=== PATIENT | male | born 1955 | race Caucasian/White ===

== ENCOUNTER 2016-12-20 04:18 | Inpatient (IN) | payer BC, OTHER ==
[~2016-12-20] VITALS: Ht 167.6 cm; Wt 88.0 kg
[2016-12-20 04:30] VITALS: Ht 167.6 cm; Wt 88.0 kg
[2016-12-20] MEDS ORDERED: morphine 4 MG/ML VIAL IV ONE (04:33)
[2016-12-20] MEDS ORDERED: ONDANSETRON 4 MG INJ IV ONE (04:33)
[2016-12-20 04:52] LABS: BASOPHILS % 0.8 % (0.0-2.0); EOSINOPHILS # 0.2 10^3/ul (0.0-0.5); HEMATOCRIT 39.3 % (42.0-52.0); HEMOGLOBIN 13.9 g/dl (14.0-18.0); LYMPHOCYTES % 19.2 % (15.0-51.0); MEAN CORPUSCULAR HEMOGLOBIN 31.7 pg (29.0-33.0); MEAN CORPUSCULAR HGB CONC 35.4 g/dl (32.0-37.0); MEAN CORPUSCULAR VOLUME 89.7 fl (82.0-101.0); MEAN PLATELET VOLUME 10.5 fl (7.4-10.4); MONOCYTE # 0.3 10^3/ul (0.3-0.9); MONOCYTES % 6.6 % (0.0-11.0); NEUTROPHIL # 3.5 10^3/ul (1.6-7.5); PLATELET COUNT 161 10^3/UL (140-415); RED BLOOD COUNT 4.38 10^6/ul (4.70-6.10); RED CELL DISTRIBUTION WIDTH 13.2 % (11.5-14.5)
[2016-12-20 05:16] LABS: CALCIUM 9.6 mg/dl (8.4-10.2); CREATININE 1.21 mg/dl (0.61-1.24); POTASSIUM 3.6 mmol/L (3.5-5.1)
[2016-12-20 05:29] LABS: CK-MB 2.99 ng/ml (0.0-2.4); TROPONIN-I 0.114 ng/ml (0.00-0.12)
[2016-12-20] MEDS ORDERED: METF500T4 PO (05:43)
[2016-12-20] MEDS ORDERED: ATOR20TA38 PO (05:43)
[2016-12-20] MEDS ORDERED: BENA40TA41 PO (05:43)
[2016-12-20] MEDS ORDERED: IBUP-1542 PO (05:43)
[2016-12-20] MEDS ORDERED: HYDR12.58 PO (05:43)
[2016-12-20] MEDS ORDERED: RIVA20TA PO (05:43)
[2016-12-20] MEDS ORDERED: METO-336 PO (05:43)
[2016-12-20] MEDS ORDERED: PARO-37 PO (05:43)
[2016-12-20] MEDS ORDERED: ASPI-535 PO (05:47)
[2016-12-20] MEDS ORDERED: LANT3I SC (05:47)
--- NOTE | 2016-12-20 05:48 | ERA ---
ER Documentation Chief Complaint Date/Time DATE: 12/20/16 TIME: 05:45 Chief Complaint unprovoked CP radiating down left arm since 0230 HPI This is 60-year-old male comes in with unprovoked chest pain rating down his left arm since 230 this morning. Pain is mild to moderate intensity, pressure- like with no exacerbating relieving factors. No nausea no vomiting no fevers no chills. No other current complaints. It is pressure-like, associated with no exacerbating or remitting factors. Mild associated shortness of breath no nausea no vomiting no other current issues ROS All systems reviewed and are negative except as per history of present illness. Medications Home Meds Reported Medications Ibuprofen* (Ibuprofen*) 600 Mg Tablet, 600 MG PO Q8, TAB 12/20/16 Hydrochlorothiazide* (Hydrochlorothiazide*) 12.5 Mg Tablet, 12.5 MG PO DAILY, # 30 TAB 12/20/16 Paroxetine Hcl* (Paroxetine*) 20 Mg Tablet, 20 MG PO DAILY, TAB 12/20/16 Rivaroxaban* (Xarelto*) 20 Mg Tablet, 20 MG PO WITH DINNER, TAB 12/20/16 Metoprolol Succinate* (Toprol XL*) 100 Mg Tab.sr.24h, 100 MG PO DAILY, #30 TAB 12/20/16 Atorvastatin Calcium* (Atorvastatin Calcium*) 20 Mg Tablet, 20 MG PO QHS, #30 TAB 12/20/16 Benazepril Hcl* (Benazepril Hcl*) 40 Mg Tablet, 40 MG PO DAILY, #30 TAB 12/20/16 Metformin Hcl* (Metformin Hcl*) 500 Mg Tablet, 500 MG PO WITH BREAKFAST DINNE, # 30 TAB 12/20/16 Allergies Allergies: Coded Allergies: No Known Allergy (Unverified , 12/20/16) PMhx/Soc Medical and Surgical Hx: pt denies Surgical Hx Hx Cardiac Disorders: Yes (HTN) Hx Miscellaneous Medical Probl: Yes (DIABETES) Hx Alcohol Use: Yes (OCCASSIONALY) Hx Substance Use: No Hx Tobacco Use: No Smoking Status: Never smoker Physical Exam Vitals Vital Signs Date Time Temp Pulse Resp B/P Pulse Ox O2 Delivery O2 Flow Rate FiO2 12/20/16 04:45 2 12/20/16 04:45 100 15 110/94 98 Room Air 12/20/16 04:30 98.3 110 16 110/94 99 Physical Exam Const: [] Head: Atraumatic Eyes: Normal Conjunctiva ENT: Normal External Ears, Nose and Mouth. Neck: Full range of motion..~ No meningismus. Resp: Clear to auscultation bilaterally Cardio: Regular rate and rhythm, no murmurs Abd: Soft, non tender, non distended. Normal bowel sounds Skin: No petechiae or rashes Back: No midline or flank tenderness Ext: No cyanosis, or edema Neur: Awake and alert Psych: Normal Mood and Affect Result Diagram: 12/20/1643412/20/16434 Results 24 hrs Laboratory Tests Test 12/20/16 04:35 White Blood Count 5.010^3/ul Red Blood Count 4.3810^6/ul Hemoglobin 13.9g/dl Hematocrit 39.3% Mean Corpuscular Volume 89.7fl Mean Corpuscular Hemoglobin 31.7pg Mean Corpuscular Hemoglobin Concent 35.4g/dl Red Cell Distribution Width 13.2% Platelet Count 26041^3/UL Mean Platelet Volume 10.5fl Neutrophils % 69.0% Lymphocytes % 19.2% Monocytes % 6.6% Eosinophils % 4.0% Basophils % 0.8% Nucleated Red Blood Cells % 0.0/100WBC Neutrophils # 3.510^3/ul Lymphocytes # 1.010^3/ul Monocytes # 0.310^3/ul Eosinophils # 0.210^3/ul Basophils # 0.010^3/ul Nucleated Red Blood Cells # 0.010^3/ul Sodium Level 136mmol/L Potassium Level 3.6mmol/L Chloride Level 100mmol/L Carbon Dioxide Level 23mmol/L Anion Gap 17 Blood Urea Nitrogen 21mg/dl Creatinine 1.21mg/dl Glucose Level 237mg/dl Calcium Level 9.6mg/dl Creatine Kinase 119IU/L Creatine Kinase Index 2.5 Creatinine Kinase MB (Mass) 2.99ng/ml Troponin I 0.114ng/ml Current Medications Medications (Trade) Dose Ordered Sig/Marques Route PRN Reason Start Time Stop Time Status Last Admin Dose Admin Morphine Sulfate (morphine) 4 mg ONCE ONCE IV 12/20/16 04:33 12/20/16 04:34 DC Ondansetron HCl (Zofran Inj) 4 mg ONCE ONCE IV 12/20/16 04:33 12/20/16 04:34 DC Procedures/MDM EKG: Rate/Rhythm: [Normal Sinus Rhythm] QRS, ST, T-waves: [No changes consistent w/ acute ischemia] Impression: [No evidence of ischemia or arrhythmia] Chest X-ray 1V Interpreted by me: Soft Tissue: No acute abnormalities Bones: No acute abnormalities Mediastinum/Cardiac Silhouette/Lungs: [No acute abnormalities] Patient's symptoms are concerning for cardiac cause will require inpatient workup and continuous monitoring. Further w/u for ischemia, arrhythmia, PE or dissection will be deferred to the inpatient team. Accepting Care Team: Current data and ongoing care discussed. Time: 5:40 AM Primary Provider: Per [employer] Consulting: [XOXOXO] Outstanding Data: none Departure Diagnosis: Primary Impression: Chest pain Qualified Code: R07.9 - Chest pain, unspecified type Condition: Stable JUNAID SEGURA Dec 20, 2016 05:48
--- NOTE | 2016-12-20 06:27 | RADRPT ---
PROCEDURE: XR Chest. CLINICAL INDICATION: Chest pain TECHNIQUE: A single AP view of the chest was obtained. COMPARISON: None. FINDINGS: No focal airspace opacification, pleural effusion or pneumothorax is seen. The cardiomediastinal si lhouette is within normal limits for size. There is a 3.8 x 2.1 cm rounded opacity which projects ov er the cardiac apex. The osseous structures are unremarkable. IMPRESSION: 1. No radiographic evidence of acute cardiopulmonary disease. 2. 3.8 x 2.1 cm well circumscribed nodular opacity projects over the cardiac apex. CT is recommende d for further evaluation. RPTAT: HH .Imelda Garcia MD, MD Date Time Electronically viewed and signed by .Imelda Garcia MD, on 12/20/2016 06:26 .G/
[2016-12-20] MEDS ORDERED: ACETAMINOPHEN 325 MG TAB PO PRN (07:00)
[2016-12-20] MEDS ORDERED: ONDANSETRON 4 MG INJ IV PRN (07:00)
--- NOTE | 2016-12-20 07:54 | RADRPT ---
PROCEDURE: CT Chest without contrast. CLINICAL INDICATION: Left lung mass TECHNIQUE: Spiral CT images through the chest without contrast. Coronal and sagittal reformatted images were obtained from the axial source images. The total exam CTDI equals 15.15 mGy and the tota l exam DLP equals 570.53 mGy-cm. One or more of the following dose reduction techniques were used: a utomated exposure control, adjustment of the mA and/or kV according to patient size, or use of itera tive reconstruction technique. COMPARISON: Chest x-ray from 12/20 FINDINGS: There is a left Bochdalek hernia containing fat which accounts for the mass-like density seen on ros st x-ray. Minimal dependent atelectasis of the lungs is otherwise seen. No pulmonary nodules are see n. No focal infiltrate or pleural effusion. There is mild atherosclerotic calcification of the aorta with moderate coronary artery calcification seen. Trace pericardial fluid. No hilar or mediastinal adenopathy. Images of the upper abdomen show mild hepatic steatosis. The kidneys are partially seen and there is a 5 mm nonobstructing stone in the upper pole of the right kidney. Degenerative change of the spine is seen. .. IMPRESSION: Left Bochdalek hernia, incidental. Aortic and coronary artery atherosclerotic change. Otherwise unre markable study. RPTAT: [facility] Physician Venkat Date Time Electronically viewed and signed by Physician Venkat on 12/20/2016 07:54 LE/
[2016-12-20 10:12] LABS: CK-MB 5.62 ng/ml (0.0-2.4)
[2016-12-20 10:18] LABS: TROPONIN-I 1.81 ng/ml (0.00-0.12)
[2016-12-20] MEDS ORDERED: ASPIRIN (EC) 325 MG TAB PO ONE (10:30)
[2016-12-20] MEDS ORDERED: NITROGLYCERIN (SL) 0.4 MG TAB SL PRN (10:30)
[2016-12-20] MEDS ORDERED: morphine 2 MG INJ IV PRN (10:30)
[2016-12-20] MEDS ORDERED: NACL 0.9% 3 ML SYG IV SCH (10:30)
[2016-12-20] MEDS ORDERED: ALBUTEROL/IPRATROPIUM (NEB) 3 ML AMP HHN PRN (10:30)
[2016-12-20] MEDS ORDERED: LORAZEPAM 2 MG INJ IV PRN (10:30)
--- NOTE | 2016-12-20 10:43 | HP ---
Date/Time of Note Date/Time of Note DATE: 12/20/16 TIME: 10:35 Assessment/Plan VTE Prophylaxis VTE Prophylaxis Intervention: LMWH Lines/Catheters IV [facility]ter [facility] (from [facility]): Peripheral IV Assessment/Plan Assessment/Plan 1. NSTEMI -Admit to telemetry -Trend troponin -Start therapeutic dose of Lovenox versus heparin drip -Supplemental oxygen, aspirin, beta-norris, statin, as needed nitro morphine -2D echo and cardiology consult 2. History of multivessel coronary artery disease -As mentioned in the HPI, patient was told that he needs CABG in 2014 but has been scared to do surgery -See #1 3. Insulin-dependent diabetes -Check A1c -Insulin while in house 4. History of dyslipidemia -Check fasting lipid -Continue statin HPI/ROS Admit Date/Time Admit Date/Time Hx of Present Illness This is a 60-year-old male with a history of hypertension, insulin-dependent diabetes, dyslipidemia who presented to ER complaining of chest pain. Pain started yesterday. It substernal, pressure-like with radiation to his left arm. He also complains of epigastric abdominal pain. Denied symptoms of acid reflux. Denied shortness of breath, nausea, vomiting or diaphoresis. He said he was hospitalized at the [facility] in 2014 and at that time cardiac cath revealed multivessel coronary artery disease. He said he was told that he needs CABG but refused because "I am scared ". When he presented to the ER, he was tachycardic with a heart rate of 110 otherwise his vitals were stable. His first troponin was negative but the second troponin just came back elevated at 1.8. Initial EKG was no ST-T wave abnormalities. PMH/Family/Social Past Medical History Medical History: coronary artery disease, diabetes, high cholesterol, hypertension Social History Alcohol Use: occasionally Smoking Status: Current every day smoker Drug Use: none Exam/Review of Systems Vital Signs Vitals Vital Signs Date Time Temp Pulse Resp B/P Pulse Ox O2 Delivery O2 Flow Rate FiO2 12/20/16 08:30 70 16 113/66 98 Room Air 12/20/16 06:30 97.9 12/20/16 04:45 2 Exam Constitutional: alert, oriented, well developed Head: atraumatic, normocephalic Eyes: EOMI, PERRL Respiratory: clear to auscultation, normal air movement Cardiovascular: nl pulses, other (Tachycardic with regular rhythm) Gastrointestinal: non-tender, soft Extremities: normal pulses Labs Result Diagram: 12/20/16 0435 12/20/16 0435 JUNAID WYMAN MD Dec 20, 2016 10:43
[2016-12-20] MEDS: ENOXAPARIN 100 MG/ML SYG SC SCH ×2 (10:53→21:00)
[2016-12-20] MEDS: FAMOTIDINE 20 MG INJ IV SCH ×2 (10:53→20:50)
[2016-12-20] MEDS: PAROXETINE 20 MG TAB PO SCH (11:06)
[2016-12-20] MEDS: METOPROLOL (XL) 100 MG TAB PO SCH (11:06)
[2016-12-20] MEDS: DEXTROSE 5%-0.45% NACL 1,000 ML IV SCH ×2 (11:07→23:50)
[2016-12-20] MEDS: IBUPROFEN 600 MG TAB PO SCH ×2 (13:50→22:00)
--- NOTE | 2016-12-20 16:29 | CONS ---
DATE OF ADMISSION: 12/20/2016 DATE OF CONSULTATION: 12/20/2016 REASON FOR CONSULTATION: Chest pain and positive troponin. REQUESTING PHYSICIAN: Dr. Jiménez from the hospitalist service. HISTORY OF PRESENT ILLNESS: Mr. Rosa is a 60-year-old male with a history of coronary artery dis ease, severe, multivessel by a catheterization report from 2013 with recommendations at that time to undergo coronary bypass graft surgery, which patient states he refused, unstable angina, hypertensi on, dyslipidemia, ongoing tobacco usage, atrial flutter per history. He who presented with complain ts of substernal chest pain described as a chest pressure. The onset with minimal exertion walking across the room. The patient has associated shortness of breath. Upon arrival in the emergency dep artment, temperature 98.3, blood pressure 110/94, pulse 110, respirations 16, saturating 99%. [facility] labs revealed white blood count of 5, hemoglobin 13.9, platelets 161. Sodium 136, potassiu m 3.6, creatinine 1.21, BUN 21. Troponin initially positive at 0.114, then positive at 1.81. [facility]'s electrocardiogram revealed sinus tachycardia, rate 112 with right superior axis deviation, incomplete right bundle branch block, borderline inferior Q's and poor R-wave progression across the anterior precordial leads. The patient subsequently has been treated with aspirin, morphine, Zofra n and had been on Xarelto, which has been discontinued. PAST MEDICAL HISTORY: As above in HPI. MEDICATIONS PRIOR TO ADMIT: 1. Xarelto 20 mg daily. 2. Atorvastatin 20 chest pain. 3. Benazepril 40 mg daily. 3. Toprol-XL 100 mg daily. 4. Aspirin 81 mg daily. 5. Paxil 20 mg daily. 6. Hydrochlorothiazide 12.5 mg daily. 7. Lantus. 8. Metformin 500 mg daily. ALLERGIES: NO KNOWN DRUG ALLERGIES. SOCIAL HISTORY: Positive tobacco, social, ETOH. No illicit drug use. FAMILY HISTORY: No history of sudden cardiac or early CAD. REVIEW OF SYSTEMS: As above in HPI. CONSTITUTIONAL: No fevers, chills. PULMONARY: Shortness of breath. CARDIOVASCULAR: Chest pain, positive troponin, non-ST elevation myocardial infarction. GASTROINTESTINAL: No vomiting. GENITOURINARY: No hematuria. MUSCULOSKELETAL: Degenerative joint disease. PSYCHIATRIC: The patient denies depression. NEUROLOGIC: No documented history of CVA. ENDOCRINE: Diabetes mellitus. PHYSICAL EXAMINATION: VITAL SIGNS: Temperature of 97.9, blood pressure most recently 124/81, pulse 68, respirations 16, s aturating 99% on room air. GENERAL: The patient is alert, awake, complaining of substernal chest pain. NECK: JVP approximately 8 to 9 cm of water. CHEST: Fair air movement throughout. HEART: Regular rate and rhythm. Normal S1, S2, I/ systolic murmur, nondisplaced PMI. ABDOMEN: Positive bowel sounds, soft. EXTREMITIES: No edema, 1+ pulses bilaterally posterior tibial. LABORATORIES: As above in HPI. No further labs for my review at this time. IMAGING STUDIES: As above in HPI. Chest x-ray revealing a 3.8 x 2.1 cm well localized ____ over th e cardiac apex. Chest CT revealed left , aortic and coronary calcifications and trace pericar dial fluid. ECG: As above in HPI. No further electrocardiograms for my review at this time. IMPRESSION: 1. Positive troponin/non-ST elevation myocardial infarction in the setting of known obstructive cor onary artery disease per catheterization in 2013 with a catheterization report that has been obtaine d from [facility] done actually 05/13/2014 which reads the patient to have a diffuse stenosi s done at [facility] up 70% to 80%. Also diagnosed a diagonal stenosis x2, 70% to 80%. Obtuse margin al lesions of 70% and 90%. Right coronary artery lesions up to 70% and posterolateral branch up to 99%. 2. Chest pain secondary to #1. 3. Abnormal electrocardiogram with inferior Q-waves. 4. Hypertension. 5. Dyslipidemia. 6. Ongoing tobacco usage. 7. Diabetes mellitus. 8. History of atrial flutter on systemic anticoagulation, currently held. RECOMMENDATIONS: 1. At this time, would admit patient to telemetry monitoring and continue to trend the patient's ca rdiac enzymes, assess for any significant ongoing cardiac damage. 2. Continue the patient's Lovenox systemic anticoagulation at this time. 3. Continue the patient's current antihypertensives with benazepril, hydrochlorothiazide and Toprol . 4. Initiate the patient on oral nitrates and follow for recurrent symptomatology. Give patient p.r .n. sublingual nitroglycerin for recurrent chest pain. 5. Check a 2D echo to further assess patient's ejection fraction, wall motion and any major valve a bnormalities. 6. Check a fasting lipid panel for general risk stratification and adjust the patient's statin ther apy as necessary. 7. Continue to check serial EKGs to assess for any significant ongoing changes. EKG in the morning , EKG for any complaints of chest pain or change in rhythm. 8. Will check a 2D echocardiogram to further assess the patient's ejection fraction, wall motion, r ule any major abnormalities. 9. Will likely require repeat catheterization to reestablish the patient's coronary anatomy and the reafter will require referral for most probable coronary artery bypass graft surgery as the patient is agreeable. Thank you for allowing me to take part in the care of this patient. I will continue to follow along very closely with you. Further recommendations will be made as the patient progresses through his inpatient hospital clinical course. Dictated By: JOSE C LANDIN/AUGIE Conf#: [id number] DID#: [id number] CC: JOSE C JIMÉNEZ;*EndCC*
[2016-12-20 17:04] LABS: CK-MB 6.34 ng/ml (0.0-2.4)
[2016-12-20 17:06] LABS: TROPONIN-I 1.71 ng/ml (0.00-0.12)
[2016-12-20 17:51] VITALS: BP 119/58; PULSE 59; RESP 18
[2016-12-20] MEDS ORDERED: RIVAROXABAN 20 MG TABLET PO SCH (18:00)
--- NOTE | 2016-12-20 19:58 | RADRPT ---
Echocardiogram Report Patient Name: PERRY ZAVALETA Gender: Male Date: 1955 Study Date: 20-Dec-2016 Lease Administrator: BROOKE [facility] Location: [facility] Ref. Physician: JUNAID WYMAN Quality: Adequate Procedures: Transthoracic echocardiogram with complete 2D, M-Mode, and doppler examination. Indications: NSTEMI. 2D/M Mode Doppler Measurement Value Normal Ranges Measurement Value Normal Ranges LVIDd 2D 4.7 3.5 - 5.6 cm JUNIOR Vmax 2.7 cm2 LVIDs 2D 3.2 2.1 - 4.1 cm JUNIOR VTI 2.7 cm2 LVPWd 2D 1.5 0.6 - 1.1 cm AV Peak Luis Alfredo 1.3 m/sec IVSd 2D 1.5 0.6 - 1.1 cm AV Peak PG 7.1 mmHg AoR Diam 2D 3.0 2.0 - 3.7 cm LVOT Peak Luis Alfredo 1.1 m/sec EDV 2D 100.1 cm3 LVOT Peak PG 4.6 mmHg ESV 2D 31.3 cm3 MV E Peak Luis Alfredo 1.0 m/sec LVOT Diam 2.1 cm MV A Peak Luis Alfredo 0.7 m/sec MV E/A 1.4 MV Decel Time 150 msec MV Decel [place] 7 MV E/A 1.4 Findings Left Ventricle: Lower limits of normal systolic function. Normal left ventricular cavity size. Normal left ventricular wall thickness. Ejection fraction is visually estimated at 50 %. Tissue Doppler/Mitral Doppler indices are within normal limits. Right Ventricle: Normal right ventricular size. Normal right ventricular systolic function. Left Atrium: There is mild enlargement of left atrium. Right Atrium: The right atrium is normal in size. Mitral Valve: Mild mitral leaflet calcification. Mild mitral annular calcification. Trace mitral regurgitation. Aortic Valve: No significant aortic stenosis or insufficiency. Aortic cusps appear mildly calcified. Tricuspid Valve: Normal appearance of the tricuspid valve. Unable to obtain RVSP due to minimal presence of tricuspid regurgitation. There is trace tricuspid regurgitation. Pulmonic Valve: Pulmonic valve not well visualized. There is trace pulmonic regurgitation. Pericardium: Normal pericardium with no significant pericardial effusion. Aorta: Normal aortic root. IVC: Normal size and normal respiratory collapse consistent with normal right atrial pressure. Conclusions 1.Lower limits of normal systolic function. Normal left ventricular cavity size. Normal left ventricular wall thickness. Ejection fraction is visually estimated at 50 %. Tissue Doppler/Mitral Doppler indices are within normal limits. 2.There is mild enlargement of left atrium. 3.Mild mitral leaflet calcification. Mild mitral annular calcification. Trace mitral regurgitation. 4.Normal appearance of the tricuspid valve. Unable to obtain RVSP due to minimal presence of tricuspid regurgitation. There is trace tricuspid regurgitation. 5.Pulmonic valve not well visualized. There is trace pulmonic regurgitation. Electronically Signed By: Damion Marquez 20-Dec-2016 19:57:11 -0700 Patient Name: PERRY ZAVALETA Study Date: 20-Dec-[id number]
[2016-12-20 20:14] VITALS: PULSE 59
[2016-12-20 20:29] VITALS: BP 116/71; PULSE 68; RESP 18
[2016-12-20] MEDS: ISOSORBIDE DINITRATE 20 MG TAB PO SCH (20:54)
[2016-12-20] MEDS ORDERED: ATORVASTATIN 20 MG TAB PO SCH (21:00)
[2016-12-20] MEDS: INSULIN GLARGINE [LANtus] 3 ML PEN SC SCH (21:02)
[2016-12-21] VITALS (15 sets, daily range): BP systolic 88–107; BP diastolic 52–64; PULSE 52–66; RESP 18–61
[2016-12-21] MEDS: IBUPROFEN 600 MG TAB PO SCH ×3 (06:00→21:52)
[2016-12-21 07:23] LABS: BASOPHIL # 0.1 10^3/ul (0.0-0.1); BASOPHILS % 1.1 % (0.0-2.0); EOSINOPHILS # 0.2 10^3/ul (0.0-0.5); EOSINOPHILS % 3.8 % (0.0-7.0); HEMATOCRIT 36.1 % (42.0-52.0); HEMOGLOBIN 12.4 g/dl (14.0-18.0); LYMPHOCYTES # 1.5 10^3/ul (0.8-2.9); LYMPHOCYTES % 27.3 % (15.0-51.0); MEAN CORPUSCULAR HEMOGLOBIN 31.1 pg (29.0-33.0); MEAN CORPUSCULAR HGB CONC 34.3 g/dl (32.0-37.0); MEAN CORPUSCULAR VOLUME 90.5 fl (82.0-101.0); MEAN PLATELET VOLUME 11.1 fl (7.4-10.4); MONOCYTE # 0.6 10^3/ul (0.3-0.9); MONOCYTES % 10.6 % (0.0-11.0); NEUTROPHIL # 3.1 10^3/ul (1.6-7.5); NEUTROPHILS % 56.7 % (39.0-77.0); PLATELET COUNT 154 10^3/UL (140-415); RED BLOOD COUNT 3.99 10^6/ul (4.70-6.10); RED CELL DISTRIBUTION WIDTH 13.7 % (11.5-14.5); WHITE BLOOD COUNT 5.5 10^3/ul (4.8-10.8)
[2016-12-21 07:51] LABS: ALBUMIN 3.9 g/dl (3.3-4.9); ALBUMIN/GLOBULIN RATIO 1.5; BILIRUBIN,INDIRECT 0.5 mg/dl (0-1.1); BILIRUBIN,TOTAL 0.5 mg/dl (0.2-1.3); CHOL/HDL RATIO 3.6 RATIO; CREATININE 1.01 mg/dl (0.61-1.24); MAGNESIUM 1.3 mg/dl (1.7-2.5); POTASSIUM 3.6 mmol/L (3.5-5.1); TOTAL PROTEIN 6.5 g/dl (6.1-8.1)
[2016-12-21 08:33] LABS: THYROID STIMULATING HORMONE 1.89 MIU/L (0.465-4.680)
[2016-12-21] MEDS ORDERED: HYDROCHLOROTHIAZIDE 12.5 MG CAP PO SCH (09:00)
[2016-12-21] MEDS ORDERED: BENAZEPRIL 40 MG TAB PO SCH (09:00)
[2016-12-21] MEDS: FAMOTIDINE 20 MG INJ IV SCH ×2 (09:26→21:51)
[2016-12-21] MEDS: ISOSORBIDE DINITRATE 20 MG TAB PO SCH ×3 (09:26→21:00)
[2016-12-21] MEDS ORDERED: INFLUENZA VIRUS VACCINE 0.5 ML SYG IM* ONE (10:00)
[2016-12-21] MEDS: METOPROLOL (XL) 100 MG TAB PO SCH (10:35)
[2016-12-21] MEDS: ASPIRIN 81 MG TAB PO SCH (10:35)
[2016-12-21] MEDS: PAROXETINE 20 MG TAB PO SCH (10:35)
[2016-12-21] MEDS: ENOXAPARIN 100 MG/ML SYG SC SCH ×2 (10:40→22:02)
[2016-12-21] MEDS ORDERED: MAGNESIUM SULFATE 2 GM/50 ML 50 ML IVPB ONE (12:30)
[2016-12-21] MEDS: DEXTROSE 5%-0.45% NACL 1,000 ML IV SCH (13:10)
--- NOTE | 2016-12-21 13:41 | PN ---
Date/Time of Note Date/Time of Note DATE: 12/21/16 TIME: 13:40 Assessment/Plan VTE Prophylaxis VTE Prophylaxis Intervention: heparin Lines/Catheters [facility] [place] Urinary Cath still in place: No Assessment/Plan Chief Complaint/Hosp Course Patient is a 60-year-old male with a past medical history of hypertension, diabetes, coronary artery disease who presented to the ED for chest pain, found to have elevated troponins Assessment and plan Non-ST elevation [place] Elevated troponins History of multivessel coronary artery disease Insulin-dependent diabetes Dyslipidemia Hypertension -cardiology plans cath likely tomorrow, given history of refusal of CABG in 2014 , patient will likely need open heart surgery, Patient's family requests Dr. Jenna Ladd. -Continue meds as per cards -Insulin while in-house -Pain control as necessary -Monitor closely DISPO: pending cath results Problems: Subjective 24 Hr Interval Summary Free Text/Dictation no chest pain, no sob Exam/Review of Systems Vital Signs Vitals Vital Signs Date Time Temp Pulse Resp B/P Pulse Ox O2 Delivery O2 Flow Rate FiO2 12/21/16 12:00 59 12/21/16 09:27 98.7 18 107/57 100 Room Air 12/20/16 04:45 2 Exam Physical exam General: Patient is laying in bed and answers questions appropriately Mentation: Patient is alert and oriented 4, Head: Normocephalic atraumatic Eyes: EOMI, pupils reactive to light Neck: Supple, nontender, midline Respiratory: Clear to auscultation bilaterally Cardiovascular: regular rate, no obvious murmurs Gastrointestinal: non-tender to palpation, bowel sounds heard. Neurological: Moves all extremities spontaneously Skin: No new skin lesions Results Result Diagram: 12/21/16 0640 12/21/16 0640 Results 24 hrs Laboratory Tests Test 12/20/16 16:10 12/20/16 20:48 12/21/16 06:40 Creatine Kinase 109 Creatine Kinase Index 5.8 Creatinine Kinase MB (Mass) 6.34 H Troponin I 1.710 *H Bedside Glucose 215 White Blood Count 5.5 Red Blood Count 3.99 L Hemoglobin 12.4 L Hematocrit 36.1 L Mean Corpuscular Volume 90.5 Mean Corpuscular Hemoglobin 31.1 Mean Corpuscular Hemoglobin Concent 34.3 Red Cell Distribution Width 13.7 Platelet Count 154 Mean Platelet Volume 11.1 H Neutrophils % 56.7 Lymphocytes % 27.3 Monocytes % 10.6 Eosinophils % 3.8 Basophils % 1.1 Nucleated Red Blood Cells % 0.0 Neutrophils # 3.1 Lymphocytes # 1.5 Monocytes # 0.6 Eosinophils # 0.2 Basophils # 0.1 Nucleated Red Blood Cells # 0.0 Sodium Level 138 Potassium Level 3.6 Chloride Level 101 Carbon Dioxide Level 30 Anion Gap 11 Blood Urea Nitrogen 18 Creatinine 1.01 Glucose Level 98 # Hemoglobin A1c 6.5 H Calcium Level 9.0 Magnesium Level 1.3 L Total Bilirubin 0.5 Direct Bilirubin 0.00 Indirect Bilirubin 0.5 Aspartate Amino Transf (AST/SGOT) 32 Alanine Aminotransferase (ALT/SGPT) 30 Alkaline Phosphatase 48 Total Protein 6.5 Albumin 3.9 Globulin 2.60 Albumin/Globulin Ratio 1.50 Triglycerides Level 157 H Cholesterol Level 184 LDL Cholesterol, Calculated 103 HDL Cholesterol 50 Cholesterol/HDL Ratio 3.6 Thyroid Stimulating Hormone (TSH) 1.890 Medications Medications Current Medications Dextrose/Sodium Chloride (D5-1/2ns) 1,000 ml @ 75 mls/hr [id number] IV Last administered on 12/20/16 23:50; Admin Dose 75 MLS/HR; Start 12/20/16 at 10:30 Lorazepam (Ativan) 0.5 mg Q6H PRN IV ANXIETY; Start 12/20/16 at 10:30 Aspirin (Aspirin) 81 mg DAILY PO Last administered on 12/21/16 10:35; Admin Dose 81 MG; Start 12/21/16 at 09:00 Nitroglycerin (Nitroglycerin (Sl Tab) 0.4 Mg) 1 tab Q5M PRN SL CHEST PAIN; Start 12/20/16 at 10:30 Morphine Sulfate (morphine) 2 mg Q4H PRN IV PAIN LEVEL 7-10; Start 12/20/16 at 10:30 Famotidine (Pepcid Iv) 20 mg Q12 IV Last administered on 12/21/16 09:26; Admin Dose 20 MG; Start 12/20/16 at 10:30 Benazepril HCl (Lotensin) 40 mg DAILY PO Last administered on 12/21/16 10:35 ; Admin Dose 40 MG; Start 12/21/16 at 09:00 Hydrochlorothiazide (Hydrochlorothiazide) 12.5 mg DAILY PO Last administered on 12/21/16 10:35; Admin Dose 12.5 MG; Start 12/21/16 at 09:00 Ibuprofen (Motrin) 600 mg Q8 PO ; Start 12/20/16 at 14:00 Insulin Glargine (Lantus) 20 unit QHS SC Last administered on 12/20/16 21:02 ; Admin Dose 20 UNIT; Start 12/20/16 at 21:00 Metoprolol Succinate (Toprol Xl) 100 mg DAILY PO Last administered on 10:35; Admin Dose 100 MG; Start 12/20/16 at 10:30 Paroxetine HCl (Paxil) 20 mg DAILY PO Last administered on 12/21/16 10:35; Admin Dose 20 MG; Start 12/20/16 at 10:30 Enoxaparin Sodium (Lovenox) 70 mg Q12 SC Last administered on 12/21/16 10:40 ; Admin Dose 70 MG; Start 12/20/16 at 10:30 Isosorbide Dinitrate (Isordil) 20 mg TID PO Last administered on 12/21/16 09: 26; Admin Dose 20 MG; Start 12/20/16 at 21:00 Atorvastatin Calcium 80 mg 80 mg QHS PO ; Start 12/21/16 at 21:00 Magnesium Sulfate (Magnesium Sulfate 2 Gm/50 ml) 50 ml @ 25 mls/hr ONCE ONCE IVPB Last administered on 12/21/16 13:06; Admin Dose 25 MLS/HR; Start at 12:30; Stop 12/21/16 at 14:29 VIKRAM JIMÉNEZ Dec 21, 2016 13:41
--- NOTE | 2016-12-21 20:02 | CONS ---
Date/Time of Note Date/Time of Note DATE: 12/21/16 TIME: 19:53 Assessment/Plan Assessment/Plan Chief Complaint/Hosp Course 1. Positive troponin/non-ST elevation myocardial infarction in the setting of known obstructive coronary artery disease per catheterization in 2013 with a catheterization report that has been obtained from [facility] done actually 05/13/2014 which reads the patient to have a diffuse stenosis done at [place] [facility] up 70% to 80%. Also diagnosed a diagonal stenosis x2, 70% to 80%. Obtuse marginal lesions of 70% and 90%. Right coronary artery lesions up to 70 % and posterolateral branch up to 99%.-downtrending cardiac enzymes 2. Chest pain secondary to #1. 3. Abnormal electrocardiogram with inferior Q-waves. 4. Hypertension-borderline hotn currently 5. Dyslipidemia. 6. Ongoing tobacco usage. 7. Diabetes mellitus. 8. History of atrial flutter -In SR currently Recc: -Tele -serial ecg's -Continue current BB/ACEI with slight decrase to allow patient to better tolerate -Continue isordil -trend carduac ensymes -Continue statin -Hold HCTZ -Continue asa/lovenox -LHC with possible PTCA/stent in am Problems: Consultation Date/Type/Reason Admit Date/Time Dec 20, 2016 at 06:49 Initial Consult Date 12/20/2016 Type of Consultation: cardiology Reason for Consultation chest pain Referring Provider: VIKRAM JIMÉNEZ Exam/Review of Systems Vital Signs Vitals Vital Signs Date Time Temp Pulse Resp B/P Pulse Ox O2 Delivery O2 Flow Rate FiO2 12/21/16 18:45 55 12/21/16 17:46 98.3 19 92/55 95 Room Air 12/20/16 04:45 2 Exam Review of Systems: CONSTITUTIONAL: No fevers, chills. PULMONARY: No sob CARDIOVASCULAR:INtermittent chest pain GASTROINTESTINAL: No nausea/vomiting. GENITOURINARY: No hematuria/dysuria. MUSCULOSKELETAL: No myagias/arthalgias. PSYCHIATRIC: The patient denies depression. NEUROLOGIC: No weakness Constitutional: alert Psych: no complaints Head: normocephalic ENMT: mucosa pink and moist Neck: jvd (9 cm water), supple Respiratory: diminished breath sounds (at bases/B) Cardiovascular: regular rate and rhythm Gastrointestinal: non-tender, soft Musculoskeletal: muscle tone (normal) Extremities: edema (none) Neurological: other Results Result Diagram: 12/21/16 0640 12/21/16 0640 Results 24 hrs Laboratory Tests Test 12/20/16 20:48 12/21/16 06:40 12/21/16 16:47 Bedside Glucose 215 195 White Blood Count 5.5 Red Blood Count 3.99 L Hemoglobin 12.4 L Hematocrit 36.1 L Mean Corpuscular Volume 90.5 Mean Corpuscular Hemoglobin 31.1 Mean Corpuscular Hemoglobin Concent 34.3 Red Cell Distribution Width 13.7 Platelet Count 154 Mean Platelet Volume 11.1 H Neutrophils % 56.7 Lymphocytes % 27.3 Monocytes % 10.6 Eosinophils % 3.8 Basophils % 1.1 Nucleated Red Blood Cells % 0.0 Neutrophils # 3.1 Lymphocytes # 1.5 Monocytes # 0.6 Eosinophils # 0.2 Basophils # 0.1 Nucleated Red Blood Cells # 0.0 Sodium Level 138 Potassium Level 3.6 Chloride Level 101 Carbon Dioxide Level 30 Anion Gap 11 Blood Urea Nitrogen 18 Creatinine 1.01 Glucose Level 98 # Hemoglobin A1c 6.5 H Calcium Level 9.0 Magnesium Level 1.3 L Total Bilirubin 0.5 Direct Bilirubin 0.00 Indirect Bilirubin 0.5 Aspartate Amino Transf (AST/SGOT) 32 Alanine Aminotransferase (ALT/SGPT) 30 Alkaline Phosphatase 48 Total Protein 6.5 Albumin 3.9 Globulin 2.60 Albumin/Globulin Ratio 1.50 Triglycerides Level 157 H Cholesterol Level 184 LDL Cholesterol, Calculated 103 HDL Cholesterol 50 Cholesterol/HDL Ratio 3.6 Thyroid Stimulating Hormone (TSH) 1.890 Medications Medications Current Medications Dextrose/Sodium Chloride (D5-1/2ns) 1,000 ml @ 75 mls/hr [id number] IV Last administered on 12/21/16 13:10; Admin Dose 75 MLS/HR; Start 12/20/16 at 10:30 Lorazepam (Ativan) 0.5 mg Q6H PRN IV ANXIETY; Start 12/20/16 at 10:30 Aspirin (Aspirin) 81 mg DAILY PO Last administered on 12/21/16 10:35; Admin Dose 81 MG; Start 12/21/16 at 09:00 Nitroglycerin (Nitroglycerin (Sl Tab) 0.4 Mg) 1 tab Q5M PRN SL CHEST PAIN; Start 12/20/16 at 10:30 Morphine Sulfate (morphine) 2 mg Q4H PRN IV PAIN LEVEL 7-10; Start 12/20/16 at 10:30 Famotidine (Pepcid Iv) 20 mg Q12 IV Last administered on 12/21/16 09:26; Admin Dose 20 MG; Start 12/20/16 at 10:30 Benazepril HCl (Lotensin) 40 mg DAILY PO Last administered on 12/21/16 10:35 ; Admin Dose 40 MG; Start 12/21/16 at 09:00 Hydrochlorothiazide (Hydrochlorothiazide) 12.5 mg DAILY PO Last administered on 12/21/16 10:35; Admin Dose 12.5 MG; Start 12/21/16 at 09:00 Ibuprofen (Motrin) 600 mg Q8 PO ; Start 12/20/16 at 14:00 Insulin Glargine (Lantus) 20 unit QHS SC Last administered on 12/20/16 21:02 ; Admin Dose 20 UNIT; Start 12/20/16 at 21:00 Metoprolol Succinate (Toprol Xl) 100 mg DAILY PO Last administered on 10:35; Admin Dose 100 MG; Start 12/20/16 at 10:30 Paroxetine HCl (Paxil) 20 mg DAILY PO Last administered on 12/21/16 10:35; Admin Dose 20 MG; Start 12/20/16 at 10:30 Enoxaparin Sodium (Lovenox) 70 mg Q12 SC Last administered on 12/21/16 10:40 ; Admin Dose 70 MG; Start 12/20/16 at 10:30 Isosorbide Dinitrate (Isordil) 20 mg TID PO Last administered on 12/21/16 09: 26; Admin Dose 20 MG; Start 12/20/16 at 21:00 Atorvastatin Calcium (Lipitor) 80 mg QHS PO ; Start 12/21/16 at 21:00 JOSE C LLOYD Dec 21, 2016 20:02
[2016-12-21] MEDS ORDERED: DIAZEPAM 5 MG TAB PO ONE (20:30)
[2016-12-21] MEDS ORDERED: SOD CHLORIDE 0.9% 250 ML IV ONE (20:30)
[2016-12-21] MEDS ORDERED: DIPHENHYDRAMINE 50 MG CAP PO ONE (20:30)
[2016-12-21] MEDS: ATORVASTATIN 80 MG TAB PO SCH (21:51)
[2016-12-21] MEDS: INSULIN GLARGINE [LANtus] 3 ML PEN SC SCH (22:00)
[2016-12-22] VITALS (28 sets, daily range): BP systolic 93–142; BP diastolic 40–63; PULSE 48–73; RESP 8–24
[2016-12-22] MEDS: IBUPROFEN 600 MG TAB PO SCH ×3 (06:00→21:03)
[2016-12-22 06:56] LABS: BASOPHIL # 0.1 10^3/ul (0.0-0.1); BASOPHILS % 0.8 % (0.0-2.0); EOSINOPHILS # 0.2 10^3/ul (0.0-0.5); EOSINOPHILS % 2.9 % (0.0-7.0); HEMATOCRIT 34.3 % (42.0-52.0); HEMOGLOBIN 12.2 g/dl (14.0-18.0); LYMPHOCYTES # 1.4 10^3/ul (0.8-2.9); LYMPHOCYTES % 22.3 % (15.0-51.0); MEAN CORPUSCULAR HEMOGLOBIN 31.9 pg (29.0-33.0); MEAN CORPUSCULAR HGB CONC 35.6 g/dl (32.0-37.0); MEAN CORPUSCULAR VOLUME 89.6 fl (82.0-101.0); MEAN PLATELET VOLUME 11.2 fl (7.4-10.4); MONOCYTE # 0.7 10^3/ul (0.3-0.9); MONOCYTES % 10.9 % (0.0-11.0); NEUTROPHIL # 3.9 10^3/ul (1.6-7.5); NEUTROPHILS % 62.6 % (39.0-77.0); POSITIVE DIFF @See below; RED BLOOD COUNT 3.83 10^6/ul (4.70-6.10); RED CELL DISTRIBUTION WIDTH 13.5 % (11.5-14.5); WHITE BLOOD COUNT 6.2 10^3/ul (4.8-10.8)
[2016-12-22 07:02] LABS: PLATELET COUNT 140 10^3/UL (140-415)
[2016-12-22 07:20] LABS: INR 0.98
[2016-12-22 07:21] LABS: PARTIAL THROMBOPLASTIN TIME 33.7 Sec (25.0-35.0)
[2016-12-22 07:28] LABS: CREATININE 1.18 mg/dl (0.61-1.24); MAGNESIUM 1.6 mg/dl (1.7-2.5); PHOSPHORUS 4.2 mg/dl (2.5-4.9); POTASSIUM 3.7 mmol/L (3.5-5.1)
[2016-12-22] MEDS: D5W-0.45 NACL + KCL 10 MEQ 1,000 ML IV SCH (07:59)
[2016-12-22] MEDS: ASPIRIN 81 MG TAB PO SCH (08:00)
[2016-12-22] MEDS: FAMOTIDINE 20 MG INJ IV SCH (08:00)
[2016-12-22] MEDS: BENAZEPRIL 20 MG TAB PO SCH (08:01)
[2016-12-22] MEDS: PAROXETINE 20 MG TAB PO SCH (08:01)
[2016-12-22] MEDS: ISOSORBIDE DINITRATE 20 MG TAB PO SCH ×3 (08:02→20:49)
[2016-12-22] MEDS: METOPROLOL (XL) 25 MG TAB PO SCH (08:03)
[2016-12-22] MEDS ORDERED: IODIXANOL LOCM 100 ML BTL ONE (10:56)
[2016-12-22] MEDS ORDERED: LIDOCAINE 1% (MDV) 20 ML INJ ONE (10:56)
[2016-12-22] MEDS ORDERED: MIDAZOLAM 1 MG/ML 2 ML INJ ONE (10:56)
[2016-12-22] MEDS ORDERED: VERAPAMIL 5 MG INJ ONE (10:56)
[2016-12-22] MEDS ORDERED: FENTAnyl 50 MCG/ML VIAL ONE (10:56)
[2016-12-22] MEDS ORDERED: NITROGLYCERIN (IC) 100 MCG/ML INJ ONE (10:57)
[2016-12-22] MEDS ORDERED: SOD CHLORIDE 0.9% 500 ML ONE (10:57)
[2016-12-22] MEDS ORDERED: HEPARIN 1000 UNITS/ML 10 ML INJ ONE (10:57)
[2016-12-22] MEDS ORDERED: SOD CHLORIDE 0.9% 1,000 ML IV SCH (12:18)
--- NOTE | 2016-12-22 12:18 | CONS ---
Date/Time of Note Date/Time of Note DATE: 12/22/16 TIME: 12:14 Assessment/Plan Assessment/Plan Chief Complaint/Hosp Course 1. Positive troponin/non-ST elevation myocardial infarction in the setting of known obstructive coronary artery disease per catheterization in 2013 with a catheterization report that has been obtained from [facility] done actually 05/13/2014 which reads the patient to have a diffuse mutivessel obstructive cad. Now POD#0 s/p LHC revealing 3 vessel obstructive cad/ Preserved LVEF today by LV gram/mildly elevated LVEDP/no sig 2. Chest pain secondary to #1. 3. Abnormal electrocardiogram with inferior Q-waves. 4. Hypertension-borderline hotn 5. Dyslipidemia. 6. Ongoing tobacco usage. 7. Diabetes mellitus. 8. History of atrial flutter -In SR currently Recc: -Tele -serial ecg's -Continue asa -Continue current BB/ACEI with further slight decrease to allow patient to better tolerate -Continue isordil -Continue statin -Resume lovenox -Refer for cabg given mutivessl diffuse coronary obstructive stenosis Problems: Consultation Date/Type/Reason Admit Date/Time Dec 20, 2016 at 06:49 Initial Consult Date 12/20/2016 Type of Consultation: cardiology Reason for Consultation Nstemi Referring Provider: VIKRAM JIMÉNEZ Exam/Review of Systems Vital Signs Vitals Vital Signs Date Time Temp Pulse Resp B/P Pulse Ox O2 Delivery O2 Flow Rate FiO2 12/22/16 08:16 59 12/22/16 07:38 98.1 19 106/63 98 12/22/16 05:00 Room Air 12/20/16 04:45 2 Intake and Output 12/21/16 12/21/16 12/22/16 15:00 23:00 07:00 Intake Total 200 ml Balance 200 ml Exam Review of Systems: CONSTITUTIONAL: No fevers, chills. PULMONARY: No sob CARDIOVASCULAR: intermittent chest pain GASTROINTESTINAL: No nausea/vomiting. GENITOURINARY: No hematuria/dysuria. MUSCULOSKELETAL: No myagias/arthalgias. PSYCHIATRIC: The patient denies depression. NEUROLOGIC: No weakness Constitutional: alert Psych: no complaints Head: normocephalic ENMT: mucosa pink and moist Neck: jvd (9 cm water), supple Respiratory: clear to auscultation Cardiovascular: regular rate and rhythm Gastrointestinal: non-tender, soft Musculoskeletal: muscle tone (normal) Extremities: edema (none) Neurological: other (No focal deficits) Results Result Diagram: 12/22/16 0609 12/22/16 0609 Results 24 hrs Laboratory Tests Test 12/21/16 16:47 12/21/16 21:50 12/22/16 06:09 12/22/16 07:49 Bedside Glucose 195 177 126 White Blood Count 6.2 Red Blood Count 3.83 L Hemoglobin 12.2 L Hematocrit 34.3 L Mean Corpuscular Volume 89.6 Mean Corpuscular Hemoglobin 31.9 Mean Corpuscular Hemoglobin Concent 35.6 Red Cell Distribution Width 13.5 Platelet Count 140 Mean Platelet Volume 11.2 H Neutrophils % 62.6 Lymphocytes % 22.3 Monocytes % 10.9 Eosinophils % 2.9 Basophils % 0.8 Nucleated Red Blood Cells % 0.0 Neutrophils # 3.9 Lymphocytes # 1.4 Monocytes # 0.7 Eosinophils # 0.2 Basophils # 0.1 Nucleated Red Blood Cells # 0.0 Prothrombin Time 13.0 Prothrombin Time Ratio 1.0 INR International Normalized Ratio 0.98 Activated Partial Thromboplast Time 33.7 Sodium Level 138 Potassium Level 3.7 Chloride Level 102 Carbon Dioxide Level 29 Anion Gap 11 Blood Urea Nitrogen 20 Creatinine 1.18 Glucose Level 124 Calcium Level 9.0 Phosphorus Level 4.2 Magnesium Level 1.6 L Troponin I 0.419 *H Cholesterol Level 172 Medications Medications Current Medications Lorazepam (Ativan) 0.5 mg Q6H PRN IV ANXIETY; Start 12/20/16 at 10:30 Aspirin (Aspirin) 81 mg DAILY PO Last administered on 12/22/16 08:00; Admin Dose 81 MG; Start 12/21/16 at 09:00 Nitroglycerin (Nitroglycerin (Sl Tab) 0.4 Mg) 1 tab Q5M PRN SL CHEST PAIN; Start 12/20/16 at 10:30 Morphine Sulfate (morphine) 2 mg Q4H PRN IV PAIN LEVEL 7-10; Start 12/20/16 at 10:30 Famotidine (Pepcid Iv) 20 mg Q12 IV Last administered on 12/22/16 08:00; Admin Dose 20 MG; Start 12/20/16 at 10:30 Hydrochlorothiazide (Hydrochlorothiazide) 12.5 mg DAILY PO Last administered on 12/21/16 10:35; Admin Dose 12.5 MG; Start 12/21/16 at 09:00; Status Future Hold Ibuprofen (Motrin) 600 mg Q8 PO ; Start 12/20/16 at 14:00 Insulin Glargine (Lantus) 20 unit QHS SC Last administered on 12/20/16 21:02 ; Admin Dose 20 UNIT; Start 12/20/16 at 21:00 Paroxetine HCl (Paxil) 20 mg DAILY PO Last administered on 12/21/16 10:35; Admin Dose 20 MG; Start 12/20/16 at 10:30 Enoxaparin Sodium (Lovenox) 70 mg Q12 SC Last administered on 12/21/16 22:02 ; Admin Dose 70 MG; Start 12/20/16 at 10:30; Status Future Hold Isosorbide Dinitrate (Isordil) 20 mg TID PO Last administered on 12/21/16 09: 26; Admin Dose 20 MG; Start 12/20/16 at 21:00 Atorvastatin Calcium (Lipitor) 80 mg QHS PO Last administered on 12/21/16 21: 51; Admin Dose 80 MG; Start 12/21/16 at 21:00 Benazepril HCl (Lotensin) 20 mg DAILY PO ; Start 12/22/16 at 09:00 Metoprolol Succinate 75 mg 75 mg DAILY PO ; Start 12/22/16 at 09:00 Potassium Chloride/Dextrose/ Sod Cl (D5-1/2ns + KCl 10 Meq) 1,000 ml @ 60 mls/ hr [id number] IV Last administered on 12/22/16 07:59; Admin Dose 60 MLS/HR; Start 12/22/16 at 06:00 JOSE C LLOYD Dec 22, 2016 12:18
--- NOTE | 2016-12-22 12:20 | SIPON ---
Date/Time of Note Date/Time of Note DATE: 12/22/16 TIME: 12:19 Operative Report Preoperative Diagnosis 1.Nstemi Postoperative Diagnosis 1.Obstructive cad mutivessel Operation/Procedure Performed 1.[facility] Surgeon see signature line medical office assistant instructor Angineh Anesthesia: moderate sedation Estimated blood loss: minimal Transfusion Required none Specimen NA Grafts/Implants none Complications none JOSE C LLOYD Dec 22, 2016 12:20
[2016-12-22] MEDS ORDERED: morphine 2 MG INJ IV PRN (12:30)
[2016-12-22] MEDS ORDERED: ACETAMINOPHEN 325 MG TAB PO PRN (12:30)
[2016-12-22] MEDS ORDERED: AL HYDROX/MG HYDROX/SIMETH 30 ML CUP PO PRN (12:30)
[2016-12-22] MEDS ORDERED: ONDANSETRON 4 MG INJ IV PRN (12:30)
--- NOTE | 2016-12-22 14:06 | CARRPT ---
DATE OF PROCEDURE: 12/22/2016 TYPE OF PROCEDURE: 1. Left heart catheterization. 2. Coronary angiography. 3. Left ventriculogram. ATTENDING PHYSICIAN: Jose C Marquez MD REFERRING PHYSICIAN: Dr. Wyman from the hospitalist service. INDICATION: Non-ST elevation myocardial infarction with ongoing chest pain. TYPE OF ANESTHESIA: Conscious and local. BRIEF HISTORY AND HOSPITAL COURSE: Mr. Rosa is a 60-year-old male with history of hypertension, dyslipidemia, diabetes mellitus, ongoing tobacco usage, who presented with complaints of substernal chest pain and ruled in for [id number] myocardial infarction brought to the cardiac catheteriz ation lab in order to assess for the possibility of significant obstructive coronary artery disease lending to of chest pain, non-ST elevation myocardial infarction and admit to the hospital. DESCRIPTION OF PROCEDURE: After informed consent was obtained, the patient was brought to the [facility] cardiac catheterization laboratory where he was prepped and draped in the st erile fashion. Lidocaine 2% was infiltrated right radial area in order to achieve adequate local an esthesia. Using modified Seldinger technique, the right radial artery was cannulated and a 6-Kazakh arterial was placed. A 6-Kazakh JL3.5 catheter was used to cannulate the left main coronary ostium . With contrast injection, multiple views of the left coronary arterial system were obtained. JL3. 5 balloon guidewire and JR4 was used to cannulate the right coronary arterial ostium. With contrast injection, multiple views of the right coronary arterial system obtained. JR4 was used in an attem pt to cannulate the right coronary arterial ostium unsuccessfully and this was exchanged for a Willi ams right which was able to successfully cannulate the right coronary arterial ostium. With contras t injection, multiple views of the right coronary arterial system were obtained was removed over a g uidewire and a 6-Kazakh pigtail was passed down the ascending aorta and placed the left ventricle. Left ventricular end-diastolic pressure was measured. Using a power injector, 20 mL of contrast wer e injected. Pigtail catheter was then pulled back across the aortic valve to assess for significant gradient, which was now removed. Subsequently, this completed the procedure, patient's sheath was removed. TR band was applied. There were no noted complications. FINDINGS: Coronary angiography: Left main 4 mm, no significant stenoses. Circumflex proximally is a 3 mm ves drew and the circumflex continuation AV groove is a 2 mm vessel with mild luminal irregularities up t o approximately 30%. There is an early branching obtuse marginal was comes off and then proximally is a 3 mm vessel and then splits into 2 daughter branch having diffuse stenosis up to approximately 80% to 90% throughout. Additionally, in the distal portion of the circumflex distal portion of the circ continuation AV groove, there are several small obtuse marginal branches with a high grade sten osis up to approximately 80% to 90%. There exists a ramus branch which is a 2 mm vessel and has an ostial 99% subtotal occlusion. The LAD proximally is a 3.5 mm vessel and in its proximal portion mitchell s a stenosis up to approximately 80%, and in the mid portion has a stenosis up to 80% to 90%, distal portion of the vessels just does reach the apex. There are 2 mid branching diagonals after the are a of stenosis in the LAD with the superior branch being a 2 mm vessel and having an ostial 70% steno sis and the inferior branch being a 2 mm vessel with an ostial 60% stenosis. Additionally, there ar e collaterals which can be seen arising from the septal branches of the LAD, recapitulating the righ t distal portion of the posterolateral branch from the right coronary artery and refluxing back into the PDA. The right coronary artery proximally is ectatic 3.5 mm and has multiple areas of stenosis up to approximately 80% to 90% throughout the mid portion. Dominant vessel, gives off a right-side d PDA which has multiple areas of occlusions up to approximately 80% throughout it and then a reason able distal target. 1. Left ventriculogram revealed a currently preserved left ventricular ejection fraction of 55% wit h inferior basilar hypokinesis. Left ventricular diastolic pressure of 19 pre-LV gram, 22 post-LV g amita, 1+ mitral regurgitation. No significant aortic stenosis by gradient. TOTAL FLUOROSCOPY TIME: 13.1 minutes. TOTAL CONTRAST: 105 mL. IMPRESSION: 1. Multivessel obstructive coronary artery disease involving a diffuse stenosis throughout the librado ent's circumflex and obtuse marginals systems and diffusely throughout the mid LAD zone and addition ally diffuse high grade stenosis throughout the mid and distal right coronary artery. 2. Preserved left ventricular systolic function. 3. Mildly elevated left heart filling pressures. 4. No significant aortic stenosis by gradient. 5. 1+ mitral regurgitation. RECOMMENDATIONS: In light of procedure and findings at this time would: 1. Recommend patient for consideration of coronary artery bypass graft surgery. 2. Aggressive risk factor reduction. 3. Maximize medical therapy. 4. Patient readmitted to telemetry floor for post-catheterization observation and continued managem ent of presenting symptoms. Dictated By: JOSE C LANDIN/AUGIE Conf#: [id number] DID#: [id number] CC: VIKRAM JIMÉNEZ MD; JUNAID WYMNA MD;*End*
--- NOTE | 2016-12-22 15:46 | PN ---
Date/Time of Note Date/Time of Note DATE: 12/22/16 TIME: 15:43 Assessment/Plan VTE Prophylaxis VTE Prophylaxis Intervention: heparin Lines/Catheters IV Catheter Type (from Nrs): Peripheral IV Urinary Cath still in place: No Assessment/Plan Chief Complaint/Hosp Course Patient is a 60-year-old male with a past medical history of hypertension, diabetes, coronary artery disease who presented to the ED for chest pain, found to have elevated troponins Assessment and plan Non-ST elevation [place] Elevated troponins History of multivessel coronary artery disease Insulin-dependent diabetes Dyslipidemia Hypertension - Dr. Jenna Ladd consulted per cardiology -cath found multi-vessel disease -Continue meds as per cards -Insulin while in-house -Pain control as necessary -Monitor closely DISPO: pending CT surgery recs Problems: Subjective 24 Hr Interval Summary Free Text/Dictation no chest pain, back from cath Exam/Review of Systems Vital Signs Vitals Vital Signs Date Time Temp Pulse Resp B/P Pulse Ox O2 Delivery O2 Flow Rate FiO2 12/22/16 15:31 98.2 68 19 112/53 97 12/22/16 14:04 Room Air 12/20/16 04:45 2 Intake and Output 12/21/16 12/21/16 12/22/16 15:00 23:00 07:00 Intake Total 200 ml Balance 200 ml Exam Physical exam General: Patient is laying in bed and answers questions appropriately Mentation: Patient is alert and oriented 4, Head: Normocephalic atraumatic Eyes: EOMI, pupils reactive to light Neck: Supple, nontender, midline Respiratory: Clear to auscultation bilaterally Cardiovascular: regular rate, no obvious murmurs Gastrointestinal: non-tender to palpation, bowel sounds heard. Neurological: Moves all extremities spontaneously Skin: No new skin lesions Results Result Diagram: 12/22/16 0609 12/22/16 0609 Results 24 hrs Laboratory Tests Test 12/21/16 16:47 12/21/16 21:50 12/22/16 06:09 12/22/16 07:49 Bedside Glucose 195 177 126 White Blood Count 6.2 Red Blood Count 3.83 L Hemoglobin 12.2 L Hematocrit 34.3 L Mean Corpuscular Volume 89.6 Mean Corpuscular Hemoglobin 31.9 Mean Corpuscular Hemoglobin Concent 35.6 Red Cell Distribution Width 13.5 Platelet Count 140 Mean Platelet Volume 11.2 H Neutrophils % 62.6 Lymphocytes % 22.3 Monocytes % 10.9 Eosinophils % 2.9 Basophils % 0.8 Nucleated Red Blood Cells % 0.0 Neutrophils # 3.9 Lymphocytes # 1.4 Monocytes # 0.7 Eosinophils # 0.2 Basophils # 0.1 Nucleated Red Blood Cells # 0.0 Prothrombin Time 13.0 Prothrombin Time Ratio 1.0 INR International Normalized Ratio 0.98 Activated Partial Thromboplast Time 33.7 Sodium Level 138 Potassium Level 3.7 Chloride Level 102 Carbon Dioxide Level 29 Anion Gap 11 Blood Urea Nitrogen 20 Creatinine 1.18 Glucose Level 124 Calcium Level 9.0 Phosphorus Level 4.2 Magnesium Level 1.6 L Troponin I 0.419 *H Cholesterol Level 172 Test 12/22/16 12:45 Bedside Glucose 129 Medications Medications Current Medications Lorazepam (Ativan) 0.5 mg Q6H PRN IV ANXIETY; Start 12/20/16 at 10:30 Aspirin (Aspirin) 81 mg DAILY PO Last administered on 12/22/16 08:00; Admin Dose 81 MG; Start 12/21/16 at 09:00 Nitroglycerin (Nitroglycerin (Sl Tab) 0.4 Mg) 1 tab Q5M PRN SL CHEST PAIN; Start 12/20/16 at 10:30 Famotidine (Pepcid Iv) 20 mg Q12 IV Last administered on 12/22/16 08:00; Admin Dose 20 MG; Start 12/20/16 at 10:30 Hydrochlorothiazide (Hydrochlorothiazide) 12.5 mg DAILY PO Last administered on 12/21/16 10:35; Admin Dose 12.5 MG; Start 12/21/16 at 09:00; Status Future Hold Ibuprofen (Motrin) 600 mg Q8 PO ; Start 12/20/16 at 14:00 Insulin Glargine (Lantus) 20 unit QHS SC Last administered on 12/20/16 21:02 ; Admin Dose 20 UNIT; Start 12/20/16 at 21:00 Paroxetine HCl (Paxil) 20 mg DAILY PO Last administered on 12/21/16 10:35; Admin Dose 20 MG; Start 12/20/16 at 10:30 Enoxaparin Sodium (Lovenox) 70 mg Q12 SC Last administered on 12/21/16 22:02 ; Admin Dose 70 MG; Start 12/20/16 at 10:30; Status Future Hold Isosorbide Dinitrate (Isordil) 20 mg TID PO Last administered on 12/21/16 09: 26; Admin Dose 20 MG; Start 12/20/16 at 21:00 Atorvastatin Calcium (Lipitor) 80 mg QHS PO Last administered on 12/21/16 21: 51; Admin Dose 80 MG; Start 12/21/16 at 21:00 Benazepril HCl (Lotensin) 20 mg DAILY PO ; Start 12/22/16 at 09:00 Metoprolol Succinate 75 mg 75 mg DAILY PO ; Start 12/22/16 at 09:00 Potassium Chloride/Dextrose/ Sod Cl (D5-1/2ns + KCl 10 Meq) 1,000 ml @ 60 mls/ hr [id number] IV Last administered on 12/22/16 07:59; Admin Dose 60 MLS/HR; Start 12/22/16 at 06:00 Acetaminophen (Tylenol Tab) 650 mg Q4H PRN PO NON-CARDIAC PAIN LEVEL (1-3); Start 12/22/16 at 12:30 Morphine Sulfate (morphine) 2 mg Q2H PRN IV FOR NON CARDIAC PAIN (4-10); Start 12/22/16 at 12:30 Al Hydrox/Mg Hydrox/Simethicone (Mag-Al Plus) 30 ml Q4H PRN PO GASTROINTESTINAL UPSET; Start 12/22/16 at 12:30 Ondansetron HCl 4 mg 4 mg Q4H PRN IV NAUSEA AND/OR VOMITING; Start 12/22/16 at 12:30 Sodium Chloride (NS) 1,000 ml @ 75 mls/hr [id number] IV Last administered on 13:12; Admin Dose 75 MLS/HR; Start 12/22/16 at 12:18; Stop 12/22/16 at 17:17 VIKRAM JIMÉNEZ Dec 22, 2016 15:46
--- NOTE | 2016-12-22 16:06 | RADRPT ---
Vent Rate: 48 bpm RR Interval: 0 msec [place] Interval: 148 msec QRS Duration: 132 msec QT Interval: 470 msec QTC Interval: 419 msec P-R-T Shaw: 60 - -52 - 26 degrees Marked sinus bradycardia Right bundle branch block Left anterior fascicular block Bifascicular block Abnormal ECG Electronically Signed By: Eitan Mckay [id number]
--- NOTE | 2016-12-22 18:52 | PN ---
Date/Time of Note Date/Time of Note DATE: 12/22/16 TIME: 18:51 Assessment/Plan Lines/Catheters IV Catheter Type (from Nrs): Peripheral IV Swanson in Place (from Nrs): No Assessment/Plan Assessment/Plan Full consult dictated chart reviewed as well as echo and angiogram. He will need CABG, scheduled for Sunday. Exam/Review of Systems Vital Signs Vitals Vital Signs Date Time Temp Pulse Resp B/P Pulse Ox O2 Delivery O2 Flow Rate FiO2 12/22/16 16:16 73 12/22/16 15:31 98.2 19 112/53 97 12/22/16 14:04 Room Air 12/20/16 04:45 2 Intake and Output 12/21/16 12/21/16 12/22/16 15:00 23:00 07:00 Intake Total 200 ml Balance 200 ml Results Result Diagram: 12/22/16 0609 12/22/16 0609 YOU FIELDS MD Dec 22, 2016 18:52
[2016-12-22] MEDS: ATORVASTATIN 80 MG TAB PO SCH (20:49)
[2016-12-22] MEDS: FAMOTIDINE 20 MG TAB PO SCH (20:49)
--- NOTE | 2016-12-22 20:55 | RADRPT ---
PROCEDURE: US Carotids. CLINICAL INDICATION: Preoperative evaluation. TECHNIQUE: Sonographic images of the bilateral carotid arteries were obtained using patiño scale and color Doppler imaging. The images were reviewed on a PACS workstation. COMPARISON: None available. FINDINGS: Right: CCA 87 cm/sec Prox ICA 66 cm/sec Mid ICA 58 cm/sec Dist ICA 63 cm/sec ECA 70 cm/sec ICA/CCA 0.9 Left: CCA 70 cm/sec Prox ICA 102 cm/sec Mid ICA 71 cm/sec Dist ICA 88 cm/sec ECA 161 cm/sec ICA/CCA 1.4 Antegrade flow is seen within the vertebral arteries bilaterally. There is mild intimal thickening a nd calcified plaque within the carotid systems bilaterally, most pronounced within the carotid bulbs , right ICA, and left ECA. There is no flow-limiting stenosis or thrombosis. IMPRESSION: 1. No evidence of hemodynamically significant internal carotid artery stenosis bilaterally. 2. Antegrade flow seen within the vertebral arteries bilaterally. RPTAT: HLBP Validated velocity measurements with angiographic measurements, velocity criteria are extrapolated f rom diameter data as defined by the Society of Radiologists in Ultrasound Consensus Conference Radio logy 2003; 229;340-346. This study does indirectly reference the measurement of the distal ICA diame ter as the denominator for stenosis measurement. SRU Consensus Conference Criteria for the Diagnosis of Carotid Artery Stenosis Degree of Stenosis, % ICA PSV, cm/sec Plaque Estimate, % ICA/CCA PSV Ratio Normal <125 None <2.0 <50 <125 <50 <2.0 50 69 125-230 >50 2.0-4.0 >70 but less than near occlusion >230 >50 <4.0 Near occlusion High, low, or undetectable Visible Variable Total occlusion Undetectable Visible, no detectable lumen Not applicable .Damion Adkins MD, MD Date Time Electronically viewed and signed by .Damion Adkins MD, MD on 12/22/2016 20:55 .P/
[2016-12-22] MEDS: HEPARIN 5,000 UNIT/0.5 ML VIAL SC SCH (21:07)
[2016-12-22] MEDS: INSULIN GLARGINE [LANtus] 3 ML PEN SC SCH (21:07)
[2016-12-23] VITALS (12 sets, daily range): BP systolic 94–112; BP diastolic 46–62; PULSE 48–72; RESP 17–18
[2016-12-23] MEDS: D5W-0.45 NACL + KCL 10 MEQ 1,000 ML IV SCH ×2 (03:27→15:20)
[2016-12-23] MEDS: HEPARIN 5,000 UNIT/0.5 ML VIAL SC SCH (05:56)
[2016-12-23] MEDS: IBUPROFEN 600 MG TAB PO SCH ×3 (05:57→21:15)
[2016-12-23 06:34] LABS: EOSINOPHILS # 0.1 10^3/ul (0.0-0.5); MONOCYTE # 0.6 10^3/ul (0.3-0.9); POSITIVE DIFF @See below
[2016-12-23 06:36] LABS: PLATELET COUNT 128 10^3/UL (140-415)
[2016-12-23 06:48] LABS: HEMATOCRIT 31.4 % (42.0-52.0); HEMOGLOBIN 11.1 g/dl (14.0-18.0); MEAN CORPUSCULAR HEMOGLOBIN 31.9 pg (29.0-33.0); MEAN CORPUSCULAR VOLUME 90.2 fl (82.0-101.0); RED BLOOD COUNT 3.48 10^6/ul (4.70-6.10); WHITE BLOOD COUNT 4.2 10^3/ul (4.8-10.8)
[2016-12-23 06:49] LABS: BASOPHILS % 0.5 % (0.0-2.0); EOSINOPHILS % 3.3 % (0.0-7.0); LYMPHOCYTES % 23.7 % (15.0-51.0); MEAN CORPUSCULAR HGB CONC 35.4 g/dl (32.0-37.0); MEAN PLATELET VOLUME 11.4 fl (7.4-10.4); MONOCYTES % 14.7 % (0.0-11.0); NEUTROPHIL # 2.4 10^3/ul (1.6-7.5); NEUTROPHILS % 57.3 % (39.0-77.0); RED CELL DISTRIBUTION WIDTH 13.5 % (11.5-14.5)
[2016-12-23 07:12] LABS: CALCIUM 8.7 mg/dl (8.4-10.2); CREATININE 1.14 mg/dl (0.61-1.24); MAGNESIUM 1.5 mg/dl (1.7-2.5); PHOSPHORUS 4.3 mg/dl (2.5-4.9); POTASSIUM 3.5 mmol/L (3.5-5.1)
[2016-12-23] MEDS: ASPIRIN 81 MG TAB PO SCH (08:37)
[2016-12-23] MEDS: PAROXETINE 20 MG TAB PO SCH (08:37)
[2016-12-23] MEDS: FAMOTIDINE 20 MG TAB PO SCH ×2 (08:37→21:15)
[2016-12-23] MEDS: BENAZEPRIL 20 MG TAB PO SCH (08:38)
[2016-12-23] MEDS: METOPROLOL (XL) 25 MG TAB PO SCH (08:38)
[2016-12-23] MEDS: ISOSORBIDE DINITRATE 20 MG TAB PO SCH ×3 (08:38→21:00)
[2016-12-23] MEDS ORDERED: GLUCOSE GEL 15 GRAM TUBE PO PRN ×2 (12:00)
[2016-12-23] MEDS ORDERED: GLUCAGON 1 MG INJ IM PRN (12:00)
[2016-12-23] MEDS ORDERED: DEXTROSE 50% 50 ML SYRINGE IV PRN ×2 (12:00)
[2016-12-23] MEDS ORDERED: GLUCOSE GEL 15 GRAM TUBE BUCCAL PRN (12:00)
[2016-12-23] MEDS: INSULIN ASPART [NOVOLOG] 3 ML PEN SC SCH ×3 (12:35→21:20)
--- NOTE | 2016-12-23 12:39 | CONS ---
Date/Time of Note Date/Time of Note DATE: 12/23/16 TIME: 12:37 Assessment/Plan Assessment/Plan Additional Assessment/Plan 1. Positive troponin/non-ST elevation myocardial infarction in the setting of known obstructive coronary artery disease per catheterization in 2013 with a catheterization report that has been obtained from [facility] done actually 05/13/2014 which reads the patient to have a diffuse mutivessel obstructive cad. s/p LHC revealing 3 vessel obstructive cad/Preserved LVEF today by LV gram/mildly elevated LVEDP/no sig - plan for surgery Tue - will optimize 2. Chest pain secondary to #10- CABG planned. 3. Abnormal electrocardiogram with inferior Q-waves. 4. Hypertension-borderline hotn - better no w 5. Dyslipidemia. 6. Ongoing tobacco usage. 7. Diabetes mellitus. 8. History of atrial flutter -In SR currently Consultation Date/Type/Reason Admit Date/Time Dec 20, 2016 at 06:49 Initial Consult Date Type of Consultation: cardiology Referring Provider: VIKRAM JIMÉNEZ 24 HR Interval Summary Free Text/Dictation s/p LHC revealing 3 vessel obstructive cad - CABG planned Tue - no CP, no ectopy on tele ROS: No fever, no chills, no nausea, no vomiting, no diarrhea/constipation No recent weight changes No chest pain, no PND, no orthopnea No dizziness, blurred vision No thirst, no heat or cold intolerance Exam/Review of Systems Vital Signs Vitals Vital Signs Date Time Temp Pulse Resp B/P Pulse Ox O2 Delivery O2 Flow Rate FiO2 12/23/16 11:13 98.1 65 17 112/57 98 12/22/16 14:04 Room Air 12/20/16 04:45 2 Intake and Output 12/22/16 12/22/16 12/23/16 15:00 23:00 07:00 Intake Total 1200 ml 300 ml Balance 1200 ml 300 ml Exam General: WN/WD/NAD, AOx 3 HEENT: Unicetric/atraumatic/EOMI (follow commands) NECK: JVD elevated, no thyromegaly Lymph: no lymphadenopathy HEART: regular with no S3, II/ systolic murmur at apex LUNGS: Coarse sounds ABD: soft, NT, ND, +BS : Intact Neuro: non focal SKIN: chronic changes EXT: trace edema Results Result Diagram: 12/23/16 0554 12/23/16 0554 Results 24 hrs Laboratory Tests Test 12/22/16 12:45 12/22/16 20:45 12/23/16 05:54 12/23/16 08:03 Bedside Glucose 129 229 H 122 White Blood Count 4.2 #L Red Blood Count 3.48 L Hemoglobin 11.1 L Hematocrit 31.4 L Mean Corpuscular Volume 90.2 Mean Corpuscular Hemoglobin 31.9 Mean Corpuscular Hemoglobin Concent 35.4 Red Cell Distribution Width 13.5 Platelet Count 128 L Mean Platelet Volume 11.4 H Neutrophils % 57.3 Lymphocytes % 23.7 Monocytes % 14.7 H Eosinophils % 3.3 Basophils % 0.5 Nucleated Red Blood Cells % 0.0 Neutrophils # 2.4 Lymphocytes # 1.0 Monocytes # 0.6 Eosinophils # 0.1 Basophils # 0.0 Nucleated Red Blood Cells # 0.0 Sodium Level 139 Potassium Level 3.5 Chloride Level 103 Carbon Dioxide Level 29 Anion Gap 11 Blood Urea Nitrogen 19 Creatinine 1.14 Glucose Level 108 Calcium Level 8.7 Phosphorus Level 4.3 Magnesium Level 1.5 L Test 12/23/16 11:58 Bedside Glucose 196 Medications Medications Current Medications Lorazepam (Ativan) 0.5 mg Q6H PRN IV ANXIETY; Start 12/20/16 at 10:30 Aspirin (Aspirin) 81 mg DAILY PO Last administered on 12/23/16 08:37; Admin Dose 81 MG; Start 12/21/16 at 09:00 Nitroglycerin (Nitroglycerin (Sl Tab) 0.4 Mg) 1 tab Q5M PRN SL CHEST PAIN; Start 12/20/16 at 10:30 Hydrochlorothiazide (Hydrochlorothiazide) 12.5 mg DAILY PO Last administered on 12/21/16 10:35; Admin Dose 12.5 MG; Start 12/21/16 at 09:00; Status Future Hold Ibuprofen (Motrin) 600 mg Q8 PO Last administered on 12/22/16 21:03; Admin Dose 600 MG; Start 12/20/16 at 14:00 Insulin Glargine (Lantus) 20 unit QHS SC Last administered on 12/22/16 21:07 ; Admin Dose 20 UNIT; Start 12/20/16 at 21:00 Paroxetine HCl (Paxil) 20 mg DAILY PO Last administered on 12/21/16 10:35; Admin Dose 20 MG; Start 12/20/16 at 10:30 Enoxaparin Sodium (Lovenox) 70 mg Q12 SC Last administered on 12/21/16 22:02 ; Admin Dose 70 MG; Start 12/20/16 at 10:30; Status Future hold Isosorbide Dinitrate (Isordil) 20 mg TID PO Last administered on 12/22/16 20: 49; Admin Dose 20 MG; Start 12/20/16 at 21:00 Atorvastatin Calcium (Lipitor) 80 mg QHS PO Last administered on 12/22/16 20: 49; Admin Dose 80 MG; Start 12/21/16 at 21:00 Benazepril HCl (Lotensin) 20 mg DAILY PO ; Start 12/22/16 at 09:00 Metoprolol Succinate 75 mg 75 mg DAILY PO ; Start 12/22/16 at 09:00 Potassium Chloride/Dextrose/ Sod Cl (D5-1/2ns + KCl 10 Meq) 1,000 ml @ 60 mls/ hr [id number] IV Last administered on 12/23/16 03:27; Admin Dose 60 MLS/HR; Start 12/22/16 at 06:00 Acetaminophen (Tylenol Tab) 650 mg Q4H PRN PO NON-CARDIAC PAIN LEVEL (1-3); Start 12/22/16 at 12:30 Morphine Sulfate (morphine) 2 mg Q2H PRN IV FOR NON CARDIAC PAIN (4-10); Start 12/22/16 at 12:30 Al Hydrox/Mg Hydrox/Simethicone (Mag-Al Plus) 30 ml Q4H PRN PO GASTROINTESTINAL UPSET; Start 12/22/16 at 12:30 Ondansetron HCl (Zofran Inj) 4 mg Q4H PRN IV NAUSEA AND/OR VOMITING; Start at 12:30 Famotidine 20 mg 20 mg BID PO Last administered on 12/22/16 20:49; Admin Dose 20 MG; Start 12/22/16 at 21:00 Magnesium Sulfate/ Dextrose (Magnesium Sulfate 1 Gm/D5W) 100 ml @ 100 mls/hr ONCE ONCE IVPB ; Start 12/23/16 at 13:00; Stop 12/23/16 at 13:59 Diagnostic Test (Pha) (Accu-Chek) 1 ea 02 XX ; Start 12/24/16 at 02:00 Miscellaneous Information 1 ea NOTE XX ; Start 12/23/16 at 12:00 Glucose (Glutose) 15 gm Q15M PRN PO DECREASED GLUCOSE; Start 12/23/16 at 12:00 Glucose (Glutose) 22.5 gm Q15M PRN PO DECREASED GLUCOSE; Start 12/23/16 at 12: 00 Dextrose (D50w Syringe) 25 ml Q15M PRN IV DECREASED GLUCOSE; Start 12/23/16 at 12:00 Dextrose (D50w Syringe) 50 ml Q15M PRN IV DECREASED GLUCOSE; Start 12/23/16 at 12:00 Glucagon (Glucagen) 1 mg Q15M PRN IM DECREASED GLUCOSE; Start 12/23/16 at 12: 00 Glucose (Glutose) 15 gm Q15M PRN BUCCAL DECREASED GLUCOSE; Start 12/23/16 at 12:00 CATARINO MALONEY MD Dec 23, 2016 12:39
[2016-12-23] MEDS ORDERED: MAGNESIUM SULFATE 1 GM/D5W 100 ML IVPB ONE (13:00)
--- NOTE | 2016-12-23 15:01 | PN ---
Date/Time of Note Date/Time of Note DATE: 12/23/16 TIME: 14:58 Assessment/Plan VTE Prophylaxis VTE Prophylaxis Intervention: LMWH Lines/Catheters IV [facility] Peripheral IV Urinary Cath still in place: No Assessment/Plan Chief Complaint/Hosp Course Patient is a 60-year-old male with a past medical history of hypertension, diabetes, coronary artery disease who presented to the ED for chest pain, found to have elevated troponins Assessment and plan Non-ST elevation DC Elevated troponins History of multivessel coronary artery disease Insulin-dependent diabetes Dyslipidemia Hypertension - Dr. Jenna Ladd consulted per cardiology, plans CABG sunday. -cath found multi-vessel disease -Continue meds as per cards -Insulin while in-house -Pain control as necessary -Monitor closely DISPO: pending CT surgery CABG sunday Problems: Subjective 24 Hr Interval Summary Free Text/Dictation no acute change in chest pain Exam/Review of Systems Vital Signs Vitals Vital Signs Date Time Temp Pulse Resp B/P Pulse Ox O2 Delivery O2 Flow Rate FiO2 12/23/16 12:42 61 12/23/16 11:13 98.1 17 112/57 98 12/22/16 14:04 Room Air 12/20/16 04:45 2 Intake and Output 12/22/16 12/22/16 12/23/16 15:00 23:00 07:00 Intake Total 1200 ml 300 ml Balance 1200 ml 300 ml Exam Physical exam General: Patient is laying in bed and answers questions appropriately Mentation: Patient is alert and oriented 4, Head: Normocephalic atraumatic Eyes: EOMI, pupils reactive to light Neck: Supple, nontender, midline Respiratory: Clear to auscultation bilaterally Cardiovascular: regular rate, no obvious murmurs Gastrointestinal: non-tender to palpation, bowel sounds heard. Neurological: Moves all extremities spontaneously Skin: No new skin lesions Results Result Diagram: 12/23/16 0554 12/23/16 0554 Results 24 hrs Laboratory Tests Test 12/22/16 20:45 12/23/16 05:54 12/23/16 08:03 12/23/16 11:58 Bedside Glucose 229 H 122 196 White Blood Count 4.2 #L Red Blood Count 3.48 L Hemoglobin 11.1 L Hematocrit 31.4 L Mean Corpuscular Volume 90.2 Mean Corpuscular Hemoglobin 31.9 Mean Corpuscular Hemoglobin Concent 35.4 Red Cell Distribution Width 13.5 Platelet Count 128 L Mean Platelet Volume 11.4 H Neutrophils % 57.3 Lymphocytes % 23.7 Monocytes % 14.7 H Eosinophils % 3.3 Basophils % 0.5 Nucleated Red Blood Cells % 0.0 Neutrophils # 2.4 Lymphocytes # 1.0 Monocytes # 0.6 Eosinophils # 0.1 Basophils # 0.0 Nucleated Red Blood Cells # 0.0 Sodium Level 139 Potassium Level 3.5 Chloride Level 103 Carbon Dioxide Level 29 Anion Gap 11 Blood Urea Nitrogen 19 Creatinine 1.14 Glucose Level 108 Calcium Level 8.7 Phosphorus Level 4.3 Magnesium Level 1.5 L Medications Medications Current Medications Lorazepam (Ativan) 0.5 mg Q6H PRN IV ANXIETY; Start 12/20/16 at 10:30 Aspirin (Aspirin) 81 mg DAILY PO Last administered on 12/23/16 08:37; Admin Dose 81 MG; Start 12/21/16 at 09:00 Nitroglycerin (Nitroglycerin (Sl Tab) 0.4 Mg) 1 tab Q5M PRN SL CHEST PAIN; Start 12/20/16 at 10:30 Hydrochlorothiazide (Hydrochlorothiazide) 12.5 mg DAILY PO Last administered on 12/21/16 10:35; Admin Dose 12.5 MG; Start 12/21/16 at 09:00; Status Future Hold Ibuprofen (Motrin) 600 mg Q8 PO Last administered on 12/22/16 21:03; Admin Dose 600 MG; Start 12/20/16 at 14:00 Insulin Glargine (Lantus) 20 unit QHS SC Last administered on 12/22/16 21:07 ; Admin Dose 20 UNIT; Start 12/20/16 at 21:00 Paroxetine HCl (Paxil) 20 mg DAILY PO Last administered on 12/21/16 10:35; Admin Dose 20 MG; Start 12/20/16 at 10:30 Enoxaparin Sodium (Lovenox) 70 mg Q12 SC Last administered on 12/21/16 22:02 ; Admin Dose 70 MG; Start 12/20/16 at 10:30; Status Future hold Isosorbide Dinitrate (Isordil) 20 mg TID PO Last administered on 12/22/16 20: 49; Admin Dose 20 MG; Start 12/20/16 at 21:00 Atorvastatin Calcium (Lipitor) 80 mg QHS PO Last administered on 12/22/16 20: 49; Admin Dose 80 MG; Start 12/21/16 at 21:00 Benazepril HCl (Lotensin) 20 mg DAILY PO ; Start 12/22/16 at 09:00 Metoprolol Succinate 75 mg 75 mg DAILY PO ; Start 12/22/16 at 09:00 Potassium Chloride/Dextrose/ Sod Cl (D5-1/2ns + KCl 10 Meq) 1,000 ml @ 60 mls/ hr [id number] IV Last administered on 12/23/16 03:27; Admin Dose 60 MLS/HR; Start 12/22/16 at 06:00 Acetaminophen (Tylenol Tab) 650 mg Q4H PRN PO NON-CARDIAC PAIN LEVEL (1-3); Start 12/22/16 at 12:30 Morphine Sulfate (morphine) 2 mg Q2H PRN IV FOR NON CARDIAC PAIN (4-10); Start 12/22/16 at 12:30 Al Hydrox/Mg Hydrox/Simethicone (Mag-Al Plus) 30 ml Q4H PRN PO GASTROINTESTINAL UPSET; Start 12/22/16 at 12:30 Ondansetron HCl (Zofran Inj) 4 mg Q4H PRN IV NAUSEA AND/OR VOMITING; Start at 12:30 Famotidine (Pepcid) 20 mg BID PO Last administered on 12/22/16 20:49; Admin Dose 20 MG; Start 12/22/16 at 21:00 Diagnostic Test (Pha) (Accu-Chek) 1 ea 02 XX ; Start 12/24/16 at 02:00 Miscellaneous Information 1 ea NOTE XX ; Start 12/23/16 at 12:00 Glucose (Glutose) 15 gm Q15M PRN PO DECREASED GLUCOSE; Start 12/23/16 at 12:00 Glucose (Glutose) 22.5 gm Q15M PRN PO DECREASED GLUCOSE; Start 12/23/16 at 12: 00 Dextrose (D50w Syringe) 25 ml Q15M PRN IV DECREASED GLUCOSE; Start 12/23/16 at 12:00 Dextrose (D50w Syringe) 50 ml Q15M PRN IV DECREASED GLUCOSE; Start 12/23/16 at 12:00 Glucagon (Glucagen) 1 mg Q15M PRN IM DECREASED GLUCOSE; Start 12/23/16 at 12: 00 Glucose (Glutose) 15 gm Q15M PRN BUCCAL DECREASED GLUCOSE; Start 12/23/16 at 12:00 VIKRAM JIMÉNEZ Dec 23, 2016 15:01
[2016-12-23] MEDS: ATORVASTATIN 80 MG TAB PO SCH (21:15)
[2016-12-23] MEDS: INSULIN GLARGINE [LANtus] 3 ML PEN SC SCH (21:20)
[2016-12-23] MEDS: ENOXAPARIN 100 MG/ML SYG SC SCH (21:20)
[2016-12-24] VITALS (13 sets, daily range): BP systolic 95–151; BP diastolic 55–70; PULSE 54–61; RESP 16–18
[2016-12-24] MEDS: ACCU-CHEK XX SCH (02:00)
[2016-12-24] MEDS: IBUPROFEN 600 MG TAB PO SCH ×3 (06:02→21:28)
[2016-12-24 06:40] LABS: EOSINOPHILS # 0.1 10^3/ul (0.0-0.5); LYMPHOCYTES # 0.7 10^3/ul (0.8-2.9); MONOCYTE # 0.7 10^3/ul (0.3-0.9); NEUTROPHIL # 2.5 10^3/ul (1.6-7.5); POSITIVE DIFF @See below; RED BLOOD COUNT 3.55 10^6/ul (4.70-6.10)
[2016-12-24 06:47] LABS: HEMOGLOBIN 11.3 g/dl (14.0-18.0)
[2016-12-24 06:48] LABS: HEMATOCRIT 32.6 % (42.0-52.0); LYMPHOCYTES % 17.4 % (15.0-51.0); MEAN CORPUSCULAR HEMOGLOBIN 31.8 pg (29.0-33.0); MEAN CORPUSCULAR HGB CONC 34.7 g/dl (32.0-37.0); MEAN CORPUSCULAR VOLUME 91.8 fl (82.0-101.0); MEAN PLATELET VOLUME 11.5 fl (7.4-10.4); MONOCYTES % 16.2 % (0.0-11.0); NEUTROPHILS % 63.2 % (39.0-77.0); PLATELET COUNT 141 10^3/UL (140-415); RED CELL DISTRIBUTION WIDTH 13.6 % (11.5-14.5)
[2016-12-24 07:30] LABS: CREATININE 0.98 mg/dl (0.61-1.24); MAGNESIUM 1.5 mg/dl (1.7-2.5); POTASSIUM 3.6 mmol/L (3.5-5.1)
[2016-12-24 07:45] LABS: PHOSPHORUS 4.3 mg/dl (2.5-4.9)
[2016-12-24] MEDS: INSULIN ASPART [NOVOLOG] 3 ML PEN SC SCH ×4 (07:55→21:00)
[2016-12-24] MEDS: D5W-0.45 NACL + KCL 10 MEQ 1,000 ML IV SCH (08:00)
--- NOTE | 2016-12-24 08:23 | CONS ---
Date/Time of Note Date/Time of Note DATE: 12/24/16 TIME: 08:19 Assessment/Plan Assessment/Plan Additional Assessment/Plan 60 year old male with severe 3V CAD who will need urgent cabg. I explained the benefits, risks and alternatives to the patient and his family. The risks are but not limited to bleeding, infection, stroke, renal and respiratory insufficiency and . They understand and consent to surgery. Consultation Date/Type/Reason Admit Date/Time Dec 20, 2016 at 06:49 Date of Consultation: Dec 22, 2016 Reason for Consultation evaluate for cabg Referring Provider: JOSE C LLOYD of Present Illness 60 year old smoker admitted with chest pain and NSTEMI. Cath shows severe 3V CAD. We are asked to see for CABG. Constitutional: No chills, No diaphoresis, No disoriented, No febrile, No improved, No no complaints, No other, No poor po, No requiring IVF, No requiring O2 Eyes: No discharge, No no complaints, No other, No pain, No redness, No visual change ENT: No bleeding, No congestion, No discharge, No dysphagia, No no complaints, No other, No pain, No sore throat Respiratory: shortness of breath Cardiovascular: chest pain Gastrointestinal: No blood, No constipation, No decreased appetite, No diarrhea , No flatus, No nausea, No no complaints, No other, No pain, No passing stool, No vomiting Genitourinary: No bleeding, No discharge, No dysuria, No flank pain, No hematuria, No no complaints, No other Musculoskeletal: No back pain, No bone/joint pain, No neck pain, No no complaints, No other, No restricted range of motion, No swelling Skin: No bruising, No erythema, No laceration, No no complaints, No other, No pruritis, No rash, No skin lesions Neurologic: No confusion, No dizziness, No focal-weakness, No headache, No no complaints, No other, No seizure, No syncope Endocrine: No dry skin, No no complaints, No other, No polydypsia, No polyuria , No temp intolerance Lymphatic: No adenopathy, No lymphadema, No no complaints, No other, No tender nodes Psychological: no complaints, No anxiety, No confusion, No depression, No nl mood/affect, No other, No suicidal Immunologic: No immunodeficiency, No no complaints, No other, No pruritis, No rhinitis, No urticaria Past Medical History Medical History: coronary artery disease, diabetes, high cholesterol, hypertension Past Surgical History Past Surgical Hx: no surgical history Family History Significant Family History: no pertinent family hx Social History Alcohol Use: occasionally Smoking Status: Current every day smoker Drug Use: none Exam/Review of Systems Vital Signs Vitals Vital Signs Date Time Temp Pulse Resp B/P Pulse Ox O2 Delivery O2 Flow Rate FiO2 12/24/16 08:17 60 12/24/16 08:11 98.0 18 107/62 98 12/23/16 21:13 21 12/22/16 14:04 Room Air Intake and Output 12/23/16 12/23/16 12/24/16 15:00 23:00 07:00 Intake Total 1610 ml 1160 ml Balance 1610 ml 1160 ml Exam Constitutional: No alert, No distress, No frail, No non-verbal, No obese, No oriented, No other, No well developed Psych: No anxiety, No confusion, No depression, No nl mood/affect, No no complaints, No other, No suicidal Head: No atraumatic, No hematomas, No lacerations, No normocephalic, No other Eyes: No EOMI, No PERRL, No fundi, disc, No icteric, No nl conjunctiva, No nl lids, No nl sclera, No other ENMT: No intubated, No mucosa pink and moist, No nl external ears & nose, No nl lips & teeth, No nl nasal mucosa & septum, No other, No tympanic membranes Neck: No bruits, No jvd, No masses, No non-tender, No nuchal rigidity, No other , No supple, No thyromegaly Respiratory: No clear to auscultation, No congested cough, No crackles/rales, No diminished breath sounds, No intercostal retraction, No labored breathing, No normal air movement, No other, No respirations, No tactile fremitus, No wheezing Cardiovascular: No S3, No S4, No bruits, No diastolic murmur, No edema, No gallop, No irregular rhythm, No jugular venous distention (JVD), No murmurs/ extra sounds, No nl pulses, No other, No regular rate and rhythm, No rub, No systolic murmur Gastrointestinal: No ascites, No bowel sounds, No distended, No firm, No hepatomegaly, No mass, No nl liver, spleen, No non-tender, No other, No rebound or guarding, No soft, No splenomegaly, No surgical scars, No tender Genitourinary - Male: No CVA tenderness, No discharge, No nl penis, No nl scrotum, No other Musculoskeletal: No joint tenderness, No muscle tone, No muscle weakness, No nl extremities to inspection, No nl gait and stance, No other, No range of motion, No spine non-tender, No swelling Extremities: No calf tenderness, No clubbing, No cyanosis, No edema, No normal pulses, No other, No palpable cord, No pitting pedal edema, No tenderness Neurological: No SHEET ROCK LAYER II-XII intact, No DTR's symmetric, No confused, No focal weakness, No lethargic, No nl mental status, No nl speech, No nl strength, No numbness, No other, No reflexes, No unresponsive Skin: No diaphoresis, No ecchymosis, No laceration, No nl turgor, No other, No puncture, No rash or lesions Lymph: No enlarged, No nl lymph nodes, No nontender, No other Results Result Diagram: 12/24/16 0552 12/24/16 0552 Results 24 hrs Laboratory Tests Test 12/23/16 11:58 12/23/16 17:28 12/23/16 21:05 12/24/16 05:52 Bedside Glucose 196 203 234 H White Blood Count 4.0 L Red Blood Count 3.55 L Hemoglobin 11.3 L Hematocrit 32.6 L Mean Corpuscular Volume 91.8 Mean Corpuscular Hemoglobin 31.8 Mean Corpuscular Hemoglobin Concent 34.7 Red Cell Distribution Width 13.6 Platelet Count 141 Mean Platelet Volume 11.5 H Neutrophils % 63.2 Lymphocytes % 17.4 Monocytes % 16.2 H Eosinophils % 2.0 Basophils % 1.0 Nucleated Red Blood Cells % 0.0 Neutrophils # 2.5 Lymphocytes # 0.7 L Monocytes # 0.7 Eosinophils # 0.1 Basophils # 0.0 Nucleated Red Blood Cells # 0.0 Sodium Level 141 Potassium Level 3.6 Chloride Level 105 Carbon Dioxide Level 29 Anion Gap 11 Blood Urea Nitrogen 16 Creatinine 0.98 Glucose Level 65 #L Calcium Level 9.0 Phosphorus Level 4.3 Magnesium Level 1.5 L Medications Medications Current Medications Lorazepam (Ativan) 0.5 mg Q6H PRN IV ANXIETY; Start 12/20/16 at 10:30 Aspirin (Aspirin) 81 mg DAILY PO Last administered on 12/23/16 08:37; Admin Dose 81 MG; Start 12/21/16 at 09:00 Nitroglycerin (Nitroglycerin (Sl Tab) 0.4 Mg) 1 tab Q5M PRN SL CHEST PAIN; Start 12/20/16 at 10:30 Hydrochlorothiazide (Hydrochlorothiazide) 12.5 mg DAILY PO Last administered on 12/21/16 10:35; Admin Dose 12.5 MG; Start 12/21/16 at 09:00; Status Future Hold Ibuprofen (Motrin) 600 mg Q8 PO Last administered on 12/24/16 06:02; Admin Dose 600 MG; Start 12/20/16 at 14:00 Insulin Glargine (Lantus) 20 unit QHS SC Last administered on 12/23/16 21:20 ; Admin Dose 20 UNIT; Start 12/20/16 at 21:00 Paroxetine HCl (Paxil) 20 mg DAILY PO Last administered on 12/21/16 10:35; Admin Dose 20 MG; Start 12/20/16 at 10:30 Enoxaparin Sodium (Lovenox) 70 mg Q12 SC Last administered on 12/23/16 21:20 ; Admin Dose 70 MG; Start 12/20/16 at 10:30; Status Future hold Isosorbide Dinitrate (Isordil) 20 mg TID PO Last administered on 12/22/16 20: 49; Admin Dose 20 MG; Start 12/20/16 at 21:00 Atorvastatin Calcium (Lipitor) 80 mg QHS PO Last administered on 12/23/16 21: 15; Admin Dose 80 MG; Start 12/21/16 at 21:00 Benazepril HCl (Lotensin) 20 mg DAILY PO ; Start 12/22/16 at 09:00 Metoprolol Succinate 75 mg 75 mg DAILY PO ; Start 12/22/16 at 09:00 Potassium Chloride/Dextrose/ Sod Cl (D5-1/2ns + KCl 10 Meq) 1,000 ml @ 60 mls/ hr [id number] IV Last administered on 12/23/16 03:27; Admin Dose 60 MLS/HR; Start 12/22/16 at 06:00 Acetaminophen (Tylenol Tab) 650 mg Q4H PRN PO NON-CARDIAC PAIN LEVEL (1-3); Start 12/22/16 at 12:30 Morphine Sulfate (morphine) 2 mg Q2H PRN IV FOR NON CARDIAC PAIN (4-10); Start 12/22/16 at 12:30 Al Hydrox/Mg Hydrox/Simethicone (Mag-Al Plus) 30 ml Q4H PRN PO GASTROINTESTINAL UPSET; Start 12/22/16 at 12:30 Ondansetron HCl (Zofran Inj) 4 mg Q4H PRN IV NAUSEA AND/OR VOMITING; Start at 12:30 Famotidine (Pepcid) 20 mg BID PO Last administered on 12/23/16 21:15; Admin Dose 20 MG; Start 12/22/16 at 21:00 Diagnostic Test (Pha) (Accu-Chek) 1 ea 02 XX ; Start 12/24/16 at 02:00 Miscellaneous Information 1 ea NOTE XX ; Start 12/23/16 at 12:00 Glucose (Glutose) 15 gm Q15M PRN PO DECREASED GLUCOSE; Start 12/23/16 at 12:00 Glucose (Glutose) 22.5 gm Q15M PRN PO DECREASED GLUCOSE; Start 12/23/16 at 12: 00 Dextrose (D50w Syringe) 25 ml Q15M PRN IV DECREASED GLUCOSE; Start 12/23/16 at 12:00 Dextrose (D50w Syringe) 50 ml Q15M PRN IV DECREASED GLUCOSE; Start 12/23/16 at 12:00 Glucagon (Glucagen) 1 mg Q15M PRN IM DECREASED GLUCOSE; Start 12/23/16 at 12: 00 Glucose (Glutose) 15 gm Q15M PRN BUCCAL DECREASED GLUCOSE; Start 12/23/16 at 12:00 YOU FIELDS MD Dec 24, 2016 08:23
[2016-12-24] MEDS: BENAZEPRIL 20 MG TAB PO SCH (08:39)
[2016-12-24] MEDS: METOPROLOL (XL) 25 MG TAB PO SCH (08:40)
[2016-12-24] MEDS: ISOSORBIDE DINITRATE 20 MG TAB PO SCH ×3 (08:40→21:00)
[2016-12-24] MEDS: ASPIRIN 81 MG TAB PO SCH (08:49)
[2016-12-24] MEDS: PAROXETINE 20 MG TAB PO SCH (08:49)
[2016-12-24] MEDS: FAMOTIDINE 20 MG TAB PO SCH ×2 (08:50→21:28)
[2016-12-24] MEDS: ENOXAPARIN 100 MG/ML SYG SC SCH ×2 (08:52→21:38)
[2016-12-24] MEDS ORDERED: MAGNESIUM SULFATE 1 GM/D5W 100 ML IVPB SCH (12:30)
--- NOTE | 2016-12-24 12:48 | CONS ---
Date/Time of Note Date/Time of Note DATE: 12/24/16 TIME: 12:47 Assessment/Plan Assessment/Plan Additional Assessment/Plan 1. Positive troponin/non-ST elevation myocardial infarction in the setting of known obstructive coronary artery disease per catheterization in 2013 with a catheterization report that has been obtained from [facility] done actually 05/13/2014 which reads the patient to have a diffuse mutivessel obstructive cad. s/p LHC revealing 3 vessel obstructive cad/Preserved LVEF today by LV gram/mildly elevated LVEDP/no sig - plan for surgery Tue - will optimize - family at bedside - agreed with paln of care 2. Chest pain secondary to #10- CABG planned. 3. Abnormal electrocardiogram with inferior Q-waves. 4. Hypertension-borderline hotn - better no w 5. Dyslipidemia. 6. Ongoing tobacco usage- d/c advised 7. Diabetes mellitus. 8. History of atrial flutter -In SR currently Consultation Date/Type/Reason Admit Date/Time Dec 20, 2016 at 06:49 Type of Consultation: cardiology Referring Provider: JOSE C LLOYD 24 HR Interval Summary Free Text/Dictation NO acute events - BP stable - in good fluid status now ROS: No fever, no chills, no nausea, no vomiting, no diarrhea/constipation No recent weight changes No chest pain, no PND, no orthopnea No dizziness, blurred vision No thirst, no heat or cold intolerance Exam/Review of Systems Vital Signs Vitals Vital Signs Date Time Temp Pulse Resp B/P Pulse Ox O2 Delivery O2 Flow Rate FiO2 12/24/16 12:20 61 12/24/16 08:11 98.0 18 107/62 98 12/23/16 21:13 21 12/22/16 14:04 Room Air Intake and Output 12/23/16 12/23/16 12/24/16 15:00 23:00 07:00 Intake Total 1610 ml 1160 ml Balance 1610 ml 1160 ml Exam General: WN/WD/NAD, AOx 3 HEENT: Unicetric/atraumatic/EOMI (follow commands) NECK: JVD elevated, no thyromegaly Lymph: no lymphadenopathy HEART: regular with no S3, II/ systolic murmur at apex LUNGS: Coarse sounds ABD: soft, NT, ND, +BS : Intact Neuro: non focal SKIN: chronic changes EXT: trace edema Results Result Diagram: 12/24/16 0552 12/24/16 0552 Results 24 hrs Laboratory Tests Test 12/23/16 17:28 12/23/16 21:05 12/24/16 05:52 12/24/16 08:02 Bedside Glucose 203 234 H 91 White Blood Count 4.0 L Red Blood Count 3.55 L Hemoglobin 11.3 L Hematocrit 32.6 L Mean Corpuscular Volume 91.8 Mean Corpuscular Hemoglobin 31.8 Mean Corpuscular Hemoglobin Concent 34.7 Red Cell Distribution Width 13.6 Platelet Count 141 Mean Platelet Volume 11.5 H Neutrophils % 63.2 Lymphocytes % 17.4 Monocytes % 16.2 H Eosinophils % 2.0 Basophils % 1.0 Nucleated Red Blood Cells % 0.0 Neutrophils # 2.5 Lymphocytes # 0.7 L Monocytes # 0.7 Eosinophils # 0.1 Basophils # 0.0 Nucleated Red Blood Cells # 0.0 Sodium Level 141 Potassium Level 3.6 Chloride Level 105 Carbon Dioxide Level 29 Anion Gap 11 Blood Urea Nitrogen 16 Creatinine 0.98 Glucose Level 65 #L Calcium Level 9.0 Phosphorus Level 4.3 Magnesium Level 1.5 L Test 12/24/16 11:48 Bedside Glucose 175 Medications Medications Current Medications Lorazepam (Ativan) 0.5 mg Q6H PRN IV ANXIETY; Start 12/20/16 at 10:30 Aspirin (Aspirin) 81 mg DAILY PO Last administered on 12/24/16 08:49; Admin Dose 81 MG; Start 12/21/16 at 09:00 Nitroglycerin (Nitroglycerin (Sl Tab) 0.4 Mg) 1 tab Q5M PRN SL CHEST PAIN; Start 12/20/16 at 10:30 Hydrochlorothiazide (Hydrochlorothiazide) 12.5 mg DAILY PO Last administered on 12/21/16 10:35; Admin Dose 12.5 MG; Start 12/21/16 at 09:00; Status Future Hold Ibuprofen (Motrin) 600 mg Q8 PO Last administered on 12/24/16 06:02; Admin Dose 600 MG; Start 12/20/16 at 14:00 Insulin Glargine (Lantus) 20 unit QHS SC Last administered on 12/23/16 21:20 ; Admin Dose 20 UNIT; Start 12/20/16 at 21:00 Paroxetine HCl (Paxil) 20 mg DAILY PO Last administered on 12/24/16 08:49; Admin Dose 20 MG; Start 12/20/16 at 10:30 Enoxaparin Sodium (Lovenox) 70 mg Q12 SC Last administered on 12/24/16 08:52 ; Admin Dose 70 MG; Start 12/20/16 at 10:30; Status Future hold Isosorbide Dinitrate (Isordil) 20 mg TID PO Last administered on 12/22/16 20: 49; Admin Dose 20 MG; Start 12/20/16 at 21:00 Atorvastatin Calcium (Lipitor) 80 mg QHS PO Last administered on 12/23/16 21: 15; Admin Dose 80 MG; Start 12/21/16 at 21:00 Benazepril HCl (Lotensin) 20 mg DAILY PO ; Start 12/22/16 at 09:00 Metoprolol Succinate (Toprol Xl) 75 mg DAILY PO ; Start 12/22/16 at 09:00 Acetaminophen (Tylenol Tab) 650 mg Q4H PRN PO NON-CARDIAC PAIN LEVEL (1-3); Start 12/22/16 at 12:30 Morphine Sulfate (morphine) 2 mg Q2H PRN IV FOR NON CARDIAC PAIN (4-10); Start 12/22/16 at 12:30 Al Hydrox/Mg Hydrox/Simethicone (Mag-Al Plus) 30 ml Q4H PRN PO GASTROINTESTINAL UPSET; Start 12/22/16 at 12:30 Ondansetron HCl (Zofran Inj) 4 mg Q4H PRN IV NAUSEA AND/OR VOMITING; Start at 12:30 Famotidine (Pepcid) 20 mg BID PO Last administered on 12/24/16 08:50; Admin Dose 20 MG; Start 12/22/16 at 21:00 Diagnostic Test (Pha) (Accu-Chek) 1 ea 02 XX ; Start 12/24/16 at 02:00 Miscellaneous Information 1 ea NOTE XX ; Start 12/23/16 at 12:00 Glucose (Glutose) 15 gm Q15M PRN PO DECREASED GLUCOSE; Start 12/23/16 at 12:00 Glucose (Glutose) 22.5 gm Q15M PRN PO DECREASED GLUCOSE; Start 12/23/16 at 12: 00 Dextrose (D50w Syringe) 25 ml Q15M PRN IV DECREASED GLUCOSE; Start 12/23/16 at 12:00 Dextrose (D50w Syringe) 50 ml Q15M PRN IV DECREASED GLUCOSE; Start 12/23/16 at 12:00 Glucagon (Glucagen) 1 mg Q15M PRN IM DECREASED GLUCOSE; Start 12/23/16 at 12: 00 Glucose 15 gm 15 gm Q15M PRN BUCCAL DECREASED GLUCOSE; Start 12/23/16 at 12:00 Cefazolin Sodium/ Dextrose 50 ml @ 100 mls/hr PRE-OP IVPB ; Start 12/26/16 at 06:00; Stop 12/26/16 at 16:00 Magnesium Sulfate/ Dextrose (Magnesium Sulfate 1 Gm/D5W) 100 ml @ 100 mls/hr ONCE IVPB Last administered on 12/24/16t 11:52; Admin Dose 100 MLS/HR; Start 12/24/16 at 12:30; Stop 12/24/16 at 13:29 CATARINO MALONEY MD Dec 24, 2016 12:48
--- NOTE | 2016-12-24 13:30 | PN ---
Date/Time of Note Date/Time of Note DATE: 12/24/16 TIME: 13:30 Assessment/Plan VTE Prophylaxis VTE Prophylaxis Intervention: LMWH Lines/Catheters IV [facility]ter Type (from [facility]): Peripheral IV Urinary Cath still in place: No Assessment/Plan Chief Complaint/Hosp Course Patient is a 60-year-old male with a past medical history of hypertension, diabetes, coronary artery disease who presented to the ED for chest pain, found to have elevated troponins Assessment and plan Non-ST elevation AL Elevated troponins History of multivessel coronary artery disease Insulin-dependent diabetes Dyslipidemia Hypertension - Dr. Jenna Ladd consulted per cardiology, plans CABG sunday. -cath found multi-vessel disease -Continue meds as per cards -Insulin while in-house -Pain control as necessary -Monitor closely DISPO: pending CT surgery CABG sunday Problems: Subjective 24 Hr Interval Summary Free Text/Dictation no chest pain Exam/Review of Systems Vital Signs Vitals Vital Signs Date Time Temp Pulse Resp B/P Pulse Ox O2 Delivery O2 Flow Rate FiO2 12/24/16 12:56 97.0 70 18 110/70 99 12/23/16 21:13 21 12/22/16 14:04 Room Air Intake and Output 12/23/16 12/23/16 12/24/16 15:00 23:00 07:00 Intake Total 1610 ml 1160 ml Balance 1610 ml 1160 ml Exam Physical exam General: Patient is laying in bed and answers questions appropriately Mentation: Patient is alert and oriented 4, Head: Normocephalic atraumatic Eyes: EOMI, pupils reactive to light Neck: Supple, nontender, midline Respiratory: Clear to auscultation bilaterally Cardiovascular: regular rate, no obvious murmurs Gastrointestinal: non-tender to palpation, bowel sounds heard. Neurological: Moves all extremities spontaneously Skin: No new skin lesions Results Result Diagram: 12/24/16 0552 12/24/16 0552 Results 24 hrs Laboratory Tests Test 12/23/16 17:28 12/23/16 21:05 12/24/16 05:52 12/24/16 08:02 Bedside Glucose 203 234 H 91 White Blood Count 4.0 L Red Blood Count 3.55 L Hemoglobin 11.3 L Hematocrit 32.6 L Mean Corpuscular Volume 91.8 Mean Corpuscular Hemoglobin 31.8 Mean Corpuscular Hemoglobin Concent 34.7 Red Cell Distribution Width 13.6 Platelet Count 141 Mean Platelet Volume 11.5 H Neutrophils % 63.2 Lymphocytes % 17.4 Monocytes % 16.2 H Eosinophils % 2.0 Basophils % 1.0 Nucleated Red Blood Cells % 0.0 Neutrophils # 2.5 Lymphocytes # 0.7 L Monocytes # 0.7 Eosinophils # 0.1 Basophils # 0.0 Nucleated Red Blood Cells # 0.0 Sodium Level 141 Potassium Level 3.6 Chloride Level 105 Carbon Dioxide Level 29 Anion Gap 11 Blood Urea Nitrogen 16 Creatinine 0.98 Glucose Level 65 #L Calcium Level 9.0 Phosphorus Level 4.3 Magnesium Level 1.5 L Test 12/24/16 11:48 Bedside Glucose 175 Medications Medications Current Medications Lorazepam (Ativan) 0.5 mg Q6H PRN IV ANXIETY; Start 12/20/16 at 10:30 Aspirin (Aspirin) 81 mg DAILY PO Last administered on 12/24/16 08:49; Admin Dose 81 MG; Start 12/21/16 at 09:00 Nitroglycerin (Nitroglycerin (Sl Tab) 0.4 Mg) 1 tab Q5M PRN SL CHEST PAIN; Start 12/20/16 at 10:30 Hydrochlorothiazide (Hydrochlorothiazide) 12.5 mg DAILY PO Last administered on 12/21/16 10:35; Admin Dose 12.5 MG; Start 12/21/16 at 09:00; Status Future Hold Ibuprofen (Motrin) 600 mg Q8 PO Last administered on 12/24/16 06:02; Admin Dose 600 MG; Start 12/20/16 at 14:00 Insulin Glargine (Lantus) 20 unit QHS SC Last administered on 12/23/16 21:20 ; Admin Dose 20 UNIT; Start 12/20/16 at 21:00 Paroxetine HCl (Paxil) 20 mg DAILY PO Last administered on 12/24/16 08:49; Admin Dose 20 MG; Start 12/20/16 at 10:30 Enoxaparin Sodium (Lovenox) 70 mg Q12 SC Last administered on 12/24/16 08:52 ; Admin Dose 70 MG; Start 12/20/16 at 10:30; Status Future hold Isosorbide Dinitrate (Isordil) 20 mg TID PO Last administered on 12/22/16 20: 49; Admin Dose 20 MG; Start 12/20/16 at 21:00 Atorvastatin Calcium (Lipitor) 80 mg QHS PO Last administered on 12/23/16 21: 15; Admin Dose 80 MG; Start 12/21/16 at 21:00 Benazepril HCl (Lotensin) 20 mg DAILY PO ; Start 12/22/16 at 09:00 Metoprolol Succinate (Toprol Xl) 75 mg DAILY PO ; Start 12/22/16 at 09:00 Acetaminophen (Tylenol Tab) 650 mg Q4H PRN PO NON-CARDIAC PAIN LEVEL (1-3); Start 12/22/16 at 12:30 Morphine Sulfate (morphine) 2 mg Q2H PRN IV FOR NON CARDIAC PAIN (4-10); Start 12/22/16 at 12:30 Al Hydrox/Mg Hydrox/Simethicone (Mag-Al Plus) 30 ml Q4H PRN PO GASTROINTESTINAL UPSET; Start 12/22/16 at 12:30 Ondansetron HCl (Zofran Inj) 4 mg Q4H PRN IV NAUSEA AND/OR VOMITING; Start at 12:30 Famotidine (Pepcid) 20 mg BID PO Last administered on 12/24/16 08:50; Admin Dose 20 MG; Start 12/22/16 at 21:00 Diagnostic Test (Pha) (Accu-Chek) 1 ea 02 XX ; Start 12/24/16 at 02:00 Miscellaneous Information 1 ea NOTE XX ; Start 12/23/16 at 12:00 Glucose (Glutose) 15 gm Q15M PRN PO DECREASED GLUCOSE; Start 12/23/16 at 12:00 Glucose (Glutose) 22.5 gm Q15M PRN PO DECREASED GLUCOSE; Start 12/23/16 at 12: 00 Dextrose (D50w Syringe) 25 ml Q15M PRN IV DECREASED GLUCOSE; Start 12/23/16 at 12:00 Dextrose (D50w Syringe) 50 ml Q15M PRN IV DECREASED GLUCOSE; Start 12/23/16 at 12:00 Glucagon (Glucagen) 1 mg Q15M PRN IM DECREASED GLUCOSE; Start 12/23/16 at 12: 00 Glucose 15 gm 15 gm Q15M PRN BUCCAL DECREASED GLUCOSE; Start 12/23/16 at 12:00 Cefazolin Sodium/ Dextrose (Ancef 2 Gm/50 ml (Pmx)) 50 ml @ 100 mls/hr PRE-OP IVPB ; Start 12/26/16 at 06:00; Stop 12/26/16 at 16:00 VIKRAM JIMÉNEZ Dec 24, 2016 13:30
[2016-12-24] MEDS: ATORVASTATIN 80 MG TAB PO SCH (21:28)
[2016-12-24] MEDS: INSULIN GLARGINE [LANtus] 3 ML PEN SC SCH (21:38)
[2016-12-25] VITALS (12 sets, daily range): BP systolic 100–127; BP diastolic 55–71; PULSE 50–71; RESP 18–20
[2016-12-25] MEDS: ACCU-CHEK XX SCH (02:00)
[2016-12-25] MEDS: IBUPROFEN 600 MG TAB PO SCH ×3 (06:35→21:57)
[2016-12-25 07:36] LABS: BASOPHILS % 0.6 % (0.0-2.0); EOSINOPHILS # 0.1 10^3/ul (0.0-0.5); EOSINOPHILS % 1.6 % (0.0-7.0); HEMATOCRIT 33.2 % (42.0-52.0); HEMOGLOBIN 11.6 g/dl (14.0-18.0); LYMPHOCYTES # 0.7 10^3/ul (0.8-2.9); LYMPHOCYTES % 13.4 % (15.0-51.0); MEAN CORPUSCULAR HEMOGLOBIN 32.1 pg (29.0-33.0); MEAN CORPUSCULAR HGB CONC 34.9 g/dl (32.0-37.0); MEAN PLATELET VOLUME 11.6 fl (7.4-10.4); MONOCYTE # 0.8 10^3/ul (0.3-0.9); MONOCYTES % 16.2 % (0.0-11.0); NEUTROPHIL # 3.4 10^3/ul (1.6-7.5); NEUTROPHILS % 67.8 % (39.0-77.0); PLATELET COUNT 148 10^3/UL (140-415); RED BLOOD COUNT 3.61 10^6/ul (4.70-6.10); RED CELL DISTRIBUTION WIDTH 13.8 % (11.5-14.5)
[2016-12-25] MEDS: INSULIN ASPART [NOVOLOG] 3 ML PEN SC SCH ×4 (07:55→20:49)
[2016-12-25 08:21] LABS: CALCIUM 9.1 mg/dl (8.4-10.2); CREATININE 1.09 mg/dl (0.61-1.24); MAGNESIUM 1.6 mg/dl (1.7-2.5); PHOSPHORUS 3.9 mg/dl (2.5-4.9); POTASSIUM 3.9 mmol/L (3.5-5.1)
[2016-12-25] MEDS: PAROXETINE 20 MG TAB PO SCH (08:40)
[2016-12-25] MEDS: METOPROLOL (XL) 25 MG TAB PO SCH (08:40)
[2016-12-25] MEDS: ASPIRIN 81 MG TAB PO SCH (08:40)
[2016-12-25] MEDS: ISOSORBIDE DINITRATE 20 MG TAB PO SCH ×3 (08:40→20:48)
[2016-12-25] MEDS: FAMOTIDINE 20 MG TAB PO SCH ×2 (08:40→20:47)
[2016-12-25] MEDS: BENAZEPRIL 20 MG TAB PO SCH (08:41)
[2016-12-25] MEDS: ENOXAPARIN 100 MG/ML SYG SC SCH (08:46)
[2016-12-25] MEDS ORDERED: SOD CHLORIDE 0.9% 250 ML IV* ONE (09:05)
--- NOTE | 2016-12-25 09:22 | PN ---
Date/Time of Note Date/Time of Note DATE: 12/25/16 TIME: 09:21 Assessment/Plan Lines/Catheters IV Catheter Type (from Nrsg): Saline Lock Sw[place] in Place (from Nrsg): No Assessment/Plan Assessment/Plan cad nstemi dm II urinalysis ordered type and cross ordered cabg in am adrianna Subjective 24 Hr Interval Summary Constitutional: no complaints Feeding: baseline diet Pain Control: well controlled Exam/Review of Systems Vital Signs Vitals Vital Signs Date Time Temp Pulse Resp B/P Pulse Ox O2 Delivery O2 Flow Rate FiO2 12/25/16 08:57 71 12/25/16 07:22 97.2 20 124/59 97 12/25/16 02:23 21 12/22/16 14:04 Room Air Intake and Output 12/24/16 12/24/16 12/25/16 15:00 23:00 07:00 Intake Total 100 ml 900 ml 400 ml Output Total 1200 ml Balance 100 ml -300 ml 400 ml Exam Constitutional: alert, oriented Psych: no complaints Head: normocephalic ENMT: nl lips & teeth Neck: supple Respiratory: clear to auscultation Cardiovascular: regular rate and rhythm Gastrointestinal: soft Musculoskeletal: nl extremities to inspection, nl gait and stance Neurological: [employer] II-XII intact, nl mental status Results Result Diagram: 12/25/16 0621 12/25/16 0621 ARY PATEL MD Dec 25, 2016 09:22
[2016-12-25] MEDS ORDERED: CEFAZOLIN 2 GM/50 ML (PMX) 50 ML IVPB ONE (09:30)
--- NOTE | 2016-12-25 10:31 | PN ---
Date/Time of Note Date/Time of Note DATE: 12/25/16 TIME: 10:30 Assessment/Plan VTE Prophylaxis VTE Prophylaxis Intervention: LMWH Lines/Catheters [facility] Saline Lock Urinary Cath still in place: No Assessment/Plan Assessment/Plan 1. Non-ST elevation MA - Cardiology on board and recommendations appreciated - Will continue current medication management 2. History of multivessel coronary artery disease - Plans for CABG tomorrow - NPO after midnight and holding Lovenox 3. Insulin-dependent diabetes - A1c 6.5 - Continue on current management - monitoring glucose and well controlled with minimal elevated readings >200 4. Dyslipidemia - on statin 5. Hypertension - stable 6. Disposition - Plans for CABG in am Subjective 24 Hr Interval Summary Free Text/Dictation Patient doing well and has no new complaints. No acute overnight events. Denies chest pain, shortness of breath, nausea, vomiting, or abdominal issues. Exam/Review of Systems Vital Signs Vitals Vital Signs Date Time Temp Pulse Resp B/P Pulse Ox O2 Delivery O2 Flow Rate FiO2 12/25/16 08:57 71 12/25/16 07:22 97.2 20 124/59 97 12/25/16 02:23 21 12/22/16 14:04 Room Air Intake and Output 12/24/16 12/24/16 12/25/16 15:00 23:00 07:00 Intake Total 100 ml 900 ml 400 ml Output Total 1200 ml Balance 100 ml -300 ml 400 ml Exam General: Patient is laying in bed and answers questions appropriately Head: Normocephalic atraumatic Eyes: EOMI, pupils reactive to light Neck: Supple, nontender, midline Respiratory: Clear to auscultation bilaterally Cardiovascular: regular rate, no obvious murmurs Gastrointestinal: non-tender to palpation, bowel sounds heard. Neurological: Moves all extremities spontaneously Skin: No new skin lesions Results Result Diagram: 12/25/1662012/25/16620 Results 24 hrs Laboratory Tests Test 12/24/16 11:48 12/24/16 17:31 12/24/16 21:32 12/25/16 06:21 Bedside Glucose 175 131 146 White Blood Count 5.0 # Red Blood Count 3.61 L Hemoglobin 11.6 L Hematocrit 33.2 L Mean Corpuscular Volume 92.0 Mean Corpuscular Hemoglobin 32.1 Mean Corpuscular Hemoglobin Concent 34.9 Red Cell Distribution Width 13.8 Platelet Count 148 Mean Platelet Volume 11.6 H Neutrophils % 67.8 Lymphocytes % 13.4 L Monocytes % 16.2 H Eosinophils % 1.6 Basophils % 0.6 Nucleated Red Blood Cells % 0.0 Neutrophils # 3.4 Lymphocytes # 0.7 L Monocytes # 0.8 Eosinophils # 0.1 Basophils # 0.0 Nucleated Red Blood Cells # 0.0 Sodium Level 140 Potassium Level 3.9 Chloride Level 104 Carbon Dioxide Level 29 Anion Gap 11 Blood Urea Nitrogen 18 Creatinine 1.09 Glucose Level 62 L Calcium Level 9.1 Phosphorus Level 3.9 Magnesium Level 1.6 L Test 12/25/16 07:58 Bedside Glucose 81 Medications Medications Current Medications Lorazepam (Ativan) 0.5 mg Q6H PRN IV ANXIETY; Start 12/20/16 at 10:30 Aspirin (Aspirin) 81 mg DAILY PO Last administered on 12/25/16 08:40; Admin Dose 81 MG; Start 12/21/16 at 09:00 Nitroglycerin (Nitroglycerin (Sl Tab) 0.4 Mg) 1 tab Q5M PRN SL CHEST PAIN; Start 12/20/16 at 10:30 Hydrochlorothiazide (Hydrochlorothiazide) 12.5 mg DAILY PO Last administered on 12/21/16 10:35; Admin Dose 12.5 MG; Start 12/21/16 at 09:00; Status Future Hold Ibuprofen (Motrin) 600 mg Q8 PO Last administered on 12/25/16 06:35; Admin Dose 600 MG; Start 12/20/16 at 14:00 Insulin Glargine (Lantus) 20 unit QHS SC Last administered on 12/24/16 21:38 ; Admin Dose 20 UNIT; Start 12/20/16 at 21:00 Paroxetine HCl (Paxil) 20 mg DAILY PO Last administered on 12/25/16 08:40; Admin Dose 20 MG; Start 12/20/16 at 10:30 Enoxaparin Sodium (Lovenox) 70 mg Q12 SC Last administered on 12/25/16 08:46 ; Admin Dose 70 MG; Start 12/20/16 at 10:30; Status Future hold Isosorbide Dinitrate (Isordil) 20 mg TID PO Last administered on 10/16/17at 08: 40; Admin Dose 20 MG; Start 12/20/16 at 21:00 Atorvastatin Calcium (Lipitor) 80 mg QHS PO Last administered on 12/24/16 21: 28; Admin Dose 80 MG; Start 12/21/16 at 21:00 Benazepril HCl (Lotensin) 20 mg DAILY PO Last administered on 12/25/16 08:41 ; Admin Dose 20 MG; Start 12/22/16 at 09:00 Metoprolol Succinate (Toprol Xl) 75 mg DAILY PO Last administered on 08:40; Admin Dose 75 MG; Start 12/22/16 at 09:00 Acetaminophen (Tylenol Tab) 650 mg Q4H PRN PO NON-CARDIAC PAIN LEVEL (1-3); Start 12/22/16 at 12:30 Morphine Sulfate (morphine) 2 mg Q2H PRN IV FOR NON CARDIAC PAIN (4-10); Start 12/22/16 at 12:30 Al Hydrox/Mg Hydrox/Simethicone (Mag-Al Plus) 30 ml Q4H PRN PO GASTROINTESTINAL UPSET; Start 12/22/16 at 12:30 Ondansetron HCl (Zofran Inj) 4 mg Q4H PRN IV NAUSEA AND/OR VOMITING; Start at 12:30 Famotidine (Pepcid) 20 mg BID PO Last administered on 12/25/16 08:40; Admin Dose 20 MG; Start 12/22/16 at 21:00 Diagnostic Test (Pha) (Accu-Chek) 1 ea 02 XX ; Start 12/24/16 at 02:00 Miscellaneous Information 1 ea NOTE XX ; Start 12/23/16 at 12:00 Glucose (Glutose) 15 gm Q15M PRN PO DECREASED GLUCOSE; Start 12/23/16 at 12:00 Glucose (Glutose) 22.5 gm Q15M PRN PO DECREASED GLUCOSE; Start 12/23/16 at 12: 00 Dextrose (D50w Syringe) 25 ml Q15M PRN IV DECREASED GLUCOSE; Start 12/23/16 at 12:00 Dextrose (D50w Syringe) 50 ml Q15M PRN IV DECREASED GLUCOSE; Start 12/23/16 at 12:00 Glucagon (Glucagen) 1 mg Q15M PRN IM DECREASED GLUCOSE; Start 12/23/16 at 12: 00 Glucose 15 gm 15 gm Q15M PRN BUCCAL DECREASED GLUCOSE; Start 12/23/16 at 12:00 Cefazolin Sodium/ Dextrose (Ancef 2 Gm/50 ml (Pmx)) 50 ml @ 100 mls/hr PRE-OP IVPB ; Start 12/26/16 at 06:00; Stop 12/26/16 at 16:00 CHARISSA BRODY MD Dec 25, 2016 10:30
--- NOTE | 2016-12-25 11:12 | CONS ---
Date/Time of Note Date/Time of Note DATE: 12/25/16 TIME: 11:09 Assessment/Plan Assessment/Plan Chief Complaint/Hosp Course 1. Positive troponin/non-ST elevation myocardial infarction in the setting of known obstructive coronary artery disease per catheterization in 2013 with a catheterization report that has been obtained from [facility] done actually 05/13/2014 which reads the patient to have a diffuse mutivessel obstructive cad. Now POD#0 s/p LHC revealing 3 vessel obstructive cad/ Preserved LVEF by LV gram/mildly elevated LVEDP/no sig 2. Chest pain secondary to #1. 3. Abnormal electrocardiogram with inferior Q-waves. 4. Hypertension-borderline hotn 5. Dyslipidemia. 6. Ongoing tobacco usage. 7. Diabetes mellitus. 8. History of atrial flutter -In SR currently and remains Recc: -Tele -serial ecg's -Continue asa -Continue current BB/ACEI/isordil as tolerated -Continue isordil -Continue statin -Cabg tomorrow Problems: Consultation Date/Type/Reason Admit Date/Time Dec 20, 2016 at 06:49 Initial Consult Date 12/20/2016 Type of Consultation: cardiology Reason for Consultation Nstemi/cad Referring Provider: VIKRAM JIMÉNEZ Exam/Review of Systems Vital Signs Vitals Vital Signs Date Time Temp Pulse Resp B/P Pulse Ox O2 Delivery O2 Flow Rate FiO2 12/25/16 08:57 71 12/25/16 07:22 97.2 20 124/59 97 12/25/16 02:23 21 12/22/16 14:04 Room Air Intake and Output 12/24/16 12/24/16 12/25/16 15:00 23:00 07:00 Intake Total 100 ml 900 ml 400 ml Output Total 1200 ml Balance 100 ml -300 ml 400 ml Exam Review of Systems: CONSTITUTIONAL: No fevers, chills. PULMONARY: No sob CARDIOVASCULAR:intermittent chest pain GASTROINTESTINAL: No nausea/vomiting. GENITOURINARY: No hematuria/dysuria. MUSCULOSKELETAL: No myagias/arthalgias. PSYCHIATRIC: The patient denies depression. NEUROLOGIC: No weakness Constitutional: alert, oriented Psych: no complaints Head: normocephalic ENMT: mucosa pink and moist Neck: jvd (8 cm water), supple Respiratory: clear to auscultation Cardiovascular: regular rate and rhythm Gastrointestinal: non-tender, soft Musculoskeletal: muscle tone (normal) Extremities: edema (none) Neurological: other (No focal deficits) Results Result Diagram: 12/25/16 0621 12/25/16 1018 Results 24 hrs Laboratory Tests Test 12/24/16 11:48 12/24/16 17:31 12/24/16 21:32 12/25/16 06:21 Bedside Glucose 175 131 146 White Blood Count 5.0 # Red Blood Count 3.61 L Hemoglobin 11.6 L Hematocrit 33.2 L Mean Corpuscular Volume 92.0 Mean Corpuscular Hemoglobin 32.1 Mean Corpuscular Hemoglobin Concent 34.9 Red Cell Distribution Width 13.8 Platelet Count 148 Mean Platelet Volume 11.6 H Neutrophils % 67.8 Lymphocytes % 13.4 L Monocytes % 16.2 H Eosinophils % 1.6 Basophils % 0.6 Nucleated Red Blood Cells % 0.0 Neutrophils # 3.4 Lymphocytes # 0.7 L Monocytes # 0.8 Eosinophils # 0.1 Basophils # 0.0 Nucleated Red Blood Cells # 0.0 Sodium Level 140 Potassium Level 3.9 Chloride Level 104 Carbon Dioxide Level 29 Anion Gap 11 Blood Urea Nitrogen 18 Creatinine 1.09 Glucose Level 62 L Calcium Level 9.1 Phosphorus Level 3.9 Magnesium Level 1.6 L Test 12/25/16 07:58 12/25/16 10:18 Bedside Glucose 81 Glucose Level 184 # Medications Medications Current Medications Lorazepam (Ativan) 0.5 mg Q6H PRN IV ANXIETY; Start 12/20/16 at 10:30 Aspirin (Aspirin) 81 mg DAILY PO Last administered on 12/25/16 08:40; Admin Dose 81 MG; Start 12/21/16 at 09:00 Nitroglycerin (Nitroglycerin (Sl Tab) 0.4 Mg) 1 tab Q5M PRN SL CHEST PAIN; Start 12/20/16 at 10:30 Hydrochlorothiazide (Hydrochlorothiazide) 12.5 mg DAILY PO Last administered on 12/21/16 10:35; Admin Dose 12.5 MG; Start 12/21/16 at 09:00; Status Future Hold Ibuprofen (Motrin) 600 mg Q8 PO Last administered on 12/25/16 06:35; Admin Dose 600 MG; Start 12/20/16 at 14:00 Insulin Glargine (Lantus) 20 unit QHS SC Last administered on 12/24/16 21:38 ; Admin Dose 20 UNIT; Start 12/20/16 at 21:00 Paroxetine HCl (Paxil) 20 mg DAILY PO Last administered on 12/25/16 08:40; Admin Dose 20 MG; Start 12/20/16 at 10:30 Enoxaparin Sodium (Lovenox) 70 mg Q12 SC Last administered on 12/25/16 08:46 ; Admin Dose 70 MG; Start 12/20/16 at 10:30; Status Future Hold Isosorbide Dinitrate (Isordil) 20 mg TID PO Last administered on 12/25/16 08: 40; Admin Dose 20 MG; Start 12/20/16 at 21:00 Atorvastatin Calcium (Lipitor) 80 mg QHS PO Last administered on 12/24/16 21: 28; Admin Dose 80 MG; Start 12/21/16 at 21:00 Benazepril HCl (Lotensin) 20 mg DAILY PO Last administered on 12/25/16 08:41 ; Admin Dose 20 MG; Start 12/22/16 at 09:00 Metoprolol Succinate (Toprol Xl) 75 mg DAILY PO Last administered on 08:40; Admin Dose 75 MG; Start 12/22/16 at 09:00 Acetaminophen (Tylenol Tab) 650 mg Q4H PRN PO NON-CARDIAC PAIN LEVEL (1-3); Start 12/22/16 at 12:30 Morphine Sulfate (morphine) 2 mg Q2H PRN IV FOR NON CARDIAC PAIN (4-10); Start 12/22/16 at 12:30 Al Hydrox/Mg Hydrox/Simethicone (Mag-Al Plus) 30 ml Q4H PRN PO GASTROINTESTINAL UPSET; Start 12/22/16 at 12:30 Ondansetron HCl (Zofran Inj) 4 mg Q4H PRN IV NAUSEA AND/OR VOMITING; Start at 12:30 Famotidine (Pepcid) 20 mg BID PO Last administered on 12/25/16 08:40; Admin Dose 20 MG; Start 12/22/16 at 21:00 Diagnostic Test (Pha) (Accu-Chek) 1 ea 02 XX ; Start 12/24/16 at 02:00 Miscellaneous Information 1 ea NOTE XX ; Start 12/23/16 at 12:00 Glucose (Glutose) 15 gm Q15M PRN PO DECREASED GLUCOSE; Start 12/23/16 at 12:00 Glucose (Glutose) 22.5 gm Q15M PRN PO DECREASED GLUCOSE; Start 12/23/16 at 12: 00 Dextrose (D50w Syringe) 25 ml Q15M PRN IV DECREASED GLUCOSE; Start 12/23/16 at 12:00 Dextrose (D50w Syringe) 50 ml Q15M PRN IV DECREASED GLUCOSE; Start 12/23/16 at 12:00 Glucagon (Glucagen) 1 mg Q15M PRN IM DECREASED GLUCOSE; Start 12/23/16 at 12: 00 Glucose 15 gm 15 gm Q15M PRN BUCCAL DECREASED GLUCOSE; Start 12/23/16 at 12:00 Cefazolin Sodium/ Dextrose (Ancef 2 Gm/50 ml (Pmx)) 50 ml @ 100 mls/hr PRE-OP IVPB ; Start 12/26/16 at 06:00; Stop 12/26/16 at 16:00 JOSE C LLOYD Dec 25, 2016 11:12
[2016-12-25] MEDS ORDERED: POLYETHYLENE GLYCOL 17 GM PACKET PO PRN (15:00)
[2016-12-25] MEDS: DOCUSATE SODIUM 100 MG CAP PO SCH ×2 (15:32→20:47)
[2016-12-25 15:33] LABS: ADD UMIC YES; UR ASCORBIC ACID NEGATIVE (NEGATIVE); UR BILIRUBIN (Dip) NEGATIVE (NEGATIVE); UR BLOOD (Dip) 1+ mg/dL (NEGATIVE); UR CLARITY CLEAR (CLEAR); UR COLOR YELLOW (YELLOW); UR GLUCOSE (Dip) 3+ mg/dL (NEGATIVE); UR KETONES (Dip) NEGATIVE (NEGATIVE); UR LEUKOCYTE ESTERASE (Dip) NEGATIVE Leu/ul (NEGATIVE); UR NITRITE (Dip) NEGATIVE (NEGATIVE); UR RBC 1 /HPF (0-5); UR SPECIFIC GRAVITY (Dip) 1.017 (1.003-1.030); UR TOTAL PROTEIN (Dip) NEGATIVE (NEGATIVE); UR UROBILINOGEN (Dip) 1+ mg/dL (NEGATIVE)
[2016-12-25] MEDS ORDERED: MAGNESIUM SULFATE 2 GM/50 ML 50 ML IVPB ONE (17:30)
[2016-12-25] MEDS: ATORVASTATIN 80 MG TAB PO SCH (20:47)
[2016-12-25] MEDS: INSULIN GLARGINE [LANtus] 3 ML PEN SC SCH (20:50)
[2016-12-26] VITALS (41 sets, daily range): BP systolic 92–131; BP diastolic 41–69; PULSE 52–96; RESP 10–21; TEMP 98.1–99.2
[2016-12-26] MEDS: ACCU-CHEK XX SCH ×9 (02:00→23:08)
[2016-12-26] MEDS: IBUPROFEN 600 MG TAB PO SCH (05:20)
[2016-12-26] MEDS ORDERED: CEFAZOLIN 2 GM/50 ML (PMX) 50 ML IVPB SCH (06:00)
[2016-12-26 06:35] LABS: BASOPHIL # 0.1 10^3/ul (0.0-0.1); BASOPHILS % 1.1 % (0.0-2.0); EOSINOPHILS # 0.1 10^3/ul (0.0-0.5); EOSINOPHILS % 2.3 % (0.0-7.0); HEMOGLOBIN 10.4 g/dl (14.0-18.0); LYMPHOCYTES # 1.2 10^3/ul (0.8-2.9); LYMPHOCYTES % 26.1 % (15.0-51.0); MEAN CORPUSCULAR HGB CONC 33.5 g/dl (32.0-37.0); MEAN CORPUSCULAR VOLUME 92.3 fl (82.0-101.0); MEAN PLATELET VOLUME 11.9 fl (7.4-10.4); MONOCYTE # 0.9 10^3/ul (0.3-0.9); NEUTROPHIL # 2.5 10^3/ul (1.6-7.5); NEUTROPHILS % 52.3 % (39.0-77.0); PLATELET COUNT 165 10^3/UL (140-415); RED BLOOD COUNT 3.36 10^6/ul (4.70-6.10); WHITE BLOOD COUNT 4.7 10^3/ul (4.8-10.8)
[2016-12-26] MEDS ORDERED: NITROGLYCERIN 50 MG/D5W 250 ML BTL ONE (07:00)
[2016-12-26] MEDS ORDERED: DOPamine-D5W 1.6 MG/ML 250 ML ONE (07:00)
[2016-12-26 07:12] LABS: ALBUMIN 3.7 g/dl (3.3-4.9); CALCIUM 9.4 mg/dl (8.4-10.2); CREATININE 1.12 mg/dl (0.61-1.24); MAGNESIUM 1.8 mg/dl (1.7-2.5); PHOSPHORUS 4.3 mg/dl (2.5-4.9); POTASSIUM 4.5 mmol/L (3.5-5.1)
[2016-12-26] MEDS: ISOSORBIDE DINITRATE 20 MG TAB PO SCH (07:48)
[2016-12-26] MEDS: METOPROLOL (XL) 25 MG TAB PO SCH (07:48)
[2016-12-26] MEDS: BENAZEPRIL 20 MG TAB PO SCH (07:48)
[2016-12-26] MEDS: PAROXETINE 20 MG TAB PO SCH (07:48)
[2016-12-26] MEDS: ASPIRIN 81 MG TAB PO SCH (07:48)
[2016-12-26] MEDS: DOCUSATE SODIUM 100 MG CAP PO SCH (07:48)
[2016-12-26] MEDS: FAMOTIDINE 20 MG TAB PO SCH (07:48)
[2016-12-26] MEDS: INSULIN ASPART [NOVOLOG] 3 ML PEN SC SCH (07:55)
--- NOTE | 2016-12-26 09:12 | CONS ---
Date/Time of Note Date/Time of Note DATE: 12/26/16 TIME: 09:10 Assessment/Plan Assessment/Plan Additional Assessment/Plan 1. Positive troponin/non-ST elevation myocardial infarction in the setting of known obstructive coronary artery disease per catheterization in 2013 with a catheterization report that has been obtained from Andres Andesr done actually 05/13/2014 which reads the patient to have a diffuse mutivessel obstructive cad. s/p LHC revealing 3 vessel obstructive cad/Preserved LVEF today by LV gram/mildly elevated LVEDP/no sig - plan for surgery Tue - will optimize - family at bedside - agreed with paln of care - SURGERY AT NOON TODAY 2. Chest pain secondary to #10- CABG planned today 3. Abnormal electrocardiogram with inferior Q-waves. 4. Hypertension-borderline hotn - better now 5. Dyslipidemia. 6. Ongoing tobacco usage- d/c advised 7. Diabetes mellitus- on meds 8. History of atrial flutter -In SR currently Consultation Date/Type/Reason Admit Date/Time Dec 20, 2016 at 06:49 Type of Consultation: cardiology Referring Provider: VIKRAM JIMÉNEZ 24 HR Interval Summary Free Text/Dictation NO acute events - BP in good range - awaiting surgery today ROS: No fever, no chills, no nausea, no vomiting, no diarrhea/constipation No recent weight changes No chest pain, no PND, no orthopnea No dizziness, blurred vision No thirst, no heat or cold intolerance Exam/Review of Systems Vital Signs Vitals Vital Signs Date Time Temp Pulse Resp B/P Pulse Ox O2 Delivery O2 Flow Rate FiO2 12/26/16 08:16 53 12/26/16 07:11 98.6 19 118/68 99 12/25/16 02:23 21 12/22/16 14:04 Room Air Intake and Output 12/25/16 12/25/16 12/26/16 15:00 23:00 07:00 Intake Total 750 ml 500 ml Balance 750 ml 500 ml Exam General: WN/WD/NAD, AOx 3 HEENT: Unicetric/atraumatic/EOMI (follow commands) NECK: JVD elevated, no thyromegaly Lymph: no lymphadenopathy HEART: regular with no S3, II/ systolic murmur at apex LUNGS: Coarse sounds ABD: soft, NT, ND, +BS : Intact Neuro: non focal SKIN: chronic changes EXT: trace edema Results Result Diagram: 12/26/16 0556 12/26/16 0556 Results 24 hrs Laboratory Tests Test 12/25/16 10:18 12/25/16 12:01 12/25/16 14:58 12/25/16 17:50 Glucose Level 184 # Bedside Glucose 205 120 Urine Color YELLOW Urine Clarity CLEAR Urine pH 5.0 Urine Specific [place] 1.017 Urine Ketones NEGATIVE Urine Nitrite NEGATIVE Urine Bilirubin NEGATIVE Urine Urobilinogen 1+ H Urine Leukocyte Esterase NEGATIVE Urine Microscopic RBC 1 Urine Microscopic WBC 1 Urine Hemoglobin 1+ H Urine Glucose 3+ H Urine Total Protein NEGATIVE Test 12/25/16 20:42 12/26/16 05:56 Bedside Glucose 166 White Blood Count 4.7 L Red Blood Count 3.36 L Hemoglobin 10.4 L Hematocrit 31.0 L Mean Corpuscular Volume 92.3 Mean Corpuscular Hemoglobin 31.0 Mean Corpuscular Hemoglobin Concent 33.5 Red Cell Distribution Width 14.0 Platelet Count 165 Mean Platelet Volume 11.9 H Neutrophils % 52.3 Lymphocytes % 26.1 Monocytes % 18.0 H Eosinophils % 2.3 Basophils % 1.1 Nucleated Red Blood Cells % 0.0 Neutrophils # 2.5 Lymphocytes # 1.2 Monocytes # 0.9 Eosinophils # 0.1 Basophils # 0.1 Nucleated Red Blood Cells # 0.0 Sodium Level 139 Potassium Level 4.5 Chloride Level 105 Carbon Dioxide Level 27 Anion Gap 12 Blood Urea Nitrogen 23 H Creatinine 1.12 Glucose Level 55 #L Calcium Level 9.4 Phosphorus Level 4.3 Magnesium Level 1.8 Albumin 3.7 Medications Medications Current Medications Lorazepam (Ativan) 0.5 mg Q6H PRN IV ANXIETY; Start 12/20/16 at 10:30 Aspirin (Aspirin) 81 mg DAILY PO Last administered on 12/25/16 08:40; Admin Dose 81 MG; Start 12/21/16 at 09:00 Nitroglycerin (Nitroglycerin (Sl Tab) 0.4 Mg) 1 tab Q5M PRN SL CHEST PAIN; Start 12/20/16 at 10:30 Hydrochlorothiazide (Hydrochlorothiazide) 12.5 mg DAILY PO Last administered on 12/21/16 10:35; Admin Dose 12.5 MG; Start 12/21/16 at 09:00; Status Future Hold Ibuprofen (Motrin) 600 mg Q8 PO Last administered on 12/25/16 21:57; Admin Dose 600 MG; Start 12/20/16 at 14:00 Insulin Glargine (Lantus) 20 unit QHS SC Last administered on 12/25/16 20:50 ; Admin Dose 20 UNIT; Start 12/20/16 at 21:00 Paroxetine HCl (Paxil) 20 mg DAILY PO Last administered on 12/25/16 08:40; Admin Dose 20 MG; Start 12/20/16 at 10:30 Enoxaparin Sodium (Lovenox) 70 mg Q12 SC Last administered on 12/25/16 08:46 ; Admin Dose 70 MG; Start 12/20/16 at 10:30; Status Future Hold Isosorbide Dinitrate (Isordil) 20 mg TID PO Last administered on 12/25/16 12: 51; Admin Dose 20 MG; Start 12/20/16 at 21:00 Atorvastatin Calcium (Lipitor) 80 mg QHS PO Last administered on 12/25/16 20: 47; Admin Dose 80 MG; Start 12/21/16 at 21:00 Benazepril HCl (Lotensin) 20 mg DAILY PO Last administered on 12/25/16 08:41 ; Admin Dose 20 MG; Start 12/22/16 at 09:00 Metoprolol Succinate (Toprol Xl) 75 mg DAILY PO Last administered on 08:40; Admin Dose 75 MG; Start 12/22/16 at 09:00 Acetaminophen (Tylenol Tab) 650 mg Q4H PRN PO NON-CARDIAC PAIN LEVEL (1-3); Start 12/22/16 at 12:30 Morphine Sulfate (morphine) 2 mg Q2H PRN IV FOR NON CARDIAC PAIN (4-10); Start 12/22/16 at 12:30 Al Hydrox/Mg Hydrox/Simethicone (Mag-Al Plus) 30 ml Q4H PRN PO GASTROINTESTINAL UPSET; Start 12/22/16 at 12:30 Ondansetron HCl (Zofran Inj) 4 mg Q4H PRN IV NAUSEA AND/OR VOMITING; Start at 12:30 Famotidine (Pepcid) 20 mg BID PO Last administered on 12/25/16 20:47; Admin Dose 20 MG; Start 12/22/16 at 21:00 Diagnostic Test (Pha) (Accu-Chek) 1 ea 02 XX ; Start 12/24/16 at 02:00 Miscellaneous Information 1 ea NOTE XX ; Start 12/23/16 at 12:00 Glucose (Glutose) 15 gm Q15M PRN PO DECREASED GLUCOSE; Start 12/23/16 at 12:00 Glucose (Glutose) 22.5 gm Q15M PRN PO DECREASED GLUCOSE; Start 12/23/16 at 12: 00 Dextrose (D50w Syringe) 25 ml Q15M PRN IV DECREASED GLUCOSE; Start 12/23/16 at 12:00 Dextrose (D50w Syringe) 50 ml Q15M PRN IV DECREASED GLUCOSE; Start 12/23/16 at 12:00 Glucagon (Glucagen) 1 mg Q15M PRN IM DECREASED GLUCOSE; Start 12/23/16 at 12: 00 Glucose 15 gm 15 gm Q15M PRN BUCCAL DECREASED GLUCOSE; Start 12/23/16 at 12:00 Cefazolin Sodium/ Dextrose 50 ml @ 100 mls/hr PRE-OP IVPB ; Start 12/26/16 at 06:00; Stop 12/26/16 at 16:00 Insulin Human Regular 100 unit/ Sodium Chloride 100 ml @ 0 mls/hr Q0M ONCE IVPB ; Start 12/26/16 at 11:00; Stop 12/26/16 at 11:01 Norepinephrine 250 ml @ 0 mls/hr ONCE ONCE IV ; Start 12/26/16 at 11:00; Stop 12/26/16 at 11:01 Epinephrine 4 mg/ Dextrose 250 ml @ 0 mls/hr Q0M ONCE IV ; Start 12/26/16 at 11 :00; Stop 12/26/16 at 11:01 Phenylephrine HCl (Kali-Syneph) 250 ml @ 0 mls/hr ONCE ONCE IV ; Start at 11:00; Stop 12/26/16 at 11:01 Aspirin 600 mg 600 mg ONCE ONCE WA ; Start 12/26/16 at 11:00; Stop 12/26/16 at 11:01 Heparin Sodium (Porcine) 35191 unit/Milrinone Lactate 10 mg/ Sodium Chloride 1, 011 ml @ 0 mls/hr ONCE ONCE SC ; Start 12/26/16 at 11:00; Stop 12/26/16 at 11:01 Milrinone Lactate/ Sodium Chloride (Primacor/NS) 52 ml @ 0 mls/hr ONCE ONCE IV ; Start 12/26/16 at 11:00; Stop 12/26/16 at 11:01 Polyethylene Glycol (Miralax) 17 gm DAILY PRN PO CONSTIPATION Last administered on 12/25/16 15:32; Admin Dose 17 GM; Start 12/25/16 at 15:00 Docusate Sodium (Colace) 100 mg BID PO Last administered on 12/25/16 20:47; Admin Dose 100 MG; Start 12/25/16 at 15:00 CATARINO MALONEY MD Dec 26, 2016 09:12
[2016-12-26] MEDS ORDERED: PAPAVERINE 60 MG INJ ONE (09:27)
[2016-12-26] MEDS ORDERED: VANCOMYCIN 1 GM INJ ONE (09:27)
[2016-12-26] MEDS ORDERED: HEPARIN 1000 UNITS/ML 10 ML INJ ONE ×3 (09:28→13:07)
[2016-12-26] MEDS ORDERED: MAGNESIUM SULFATE 2 GM/50 ML 50 ML ONE (09:43)
[2016-12-26] MEDS ORDERED: POTASSIUM CHLORIDE 100 ML ONE (09:43)
[2016-12-26] MEDS ORDERED: ALBUMIN HUMAN 5% 250 ML ONE (09:43)
[2016-12-26] MEDS ORDERED: PHENYLephrine 20MG IN 250 ML 250 ML IV ONE (11:00)
[2016-12-26] MEDS ORDERED: NORepinephrine 8MG/250 ML (PMX 250 ML IV ONE (11:00)
[2016-12-26] MEDS ORDERED: MILRINONE LACTATE 2 MG in SOD CHLORIDE 0.9% 50 ML IV ONE (11:00)
[2016-12-26] MEDS ORDERED: ASPIRIN 600 MG SUPP PR ONE (11:00)
[2016-12-26] MEDS ORDERED: HEPARIN (10000 UNITS/ML) 10,000 UNIT, MILRINONE LACTATE 10 MG in SOD CHLORIDE 0.9% 1,00... SC ONE (11:00)
[2016-12-26] MEDS ORDERED: EPINEPHrine 4 MG in DEXTROSE 5% 246 ML IV ONE (11:00)
[2016-12-26] MEDS ORDERED: INSULIN HUMAN REGULAR 100 UNIT in SOD CHLORIDE 0.9% 99 ML IVPB ONE (11:00)
--- NOTE | 2016-12-26 11:41 | HPN ---
Date/Time of Note Date/Time of Note DATE: 12/26/16 TIME: 11:41 Interval H&P Admission Note Pt. seen H&P reviewed: No system changes YOU FIELDS MD Dec 26, 2016 11:41
[2016-12-26] MEDS ORDERED: MIDAZOLAM 5 ML ONE ×2 (11:54→13:39)
[2016-12-26] MEDS ORDERED: ALBUMIN HUMAN 25% 300 ML ONE (11:55)
[2016-12-26] MEDS ORDERED: PHENYLephrine (100 MCG/ML) 5ML SYG ONE ×3 (11:56→14:48)
[2016-12-26] MEDS ORDERED: CA CHLORIDE 10% 10 ML SYRINGE ONE (11:57)
[2016-12-26] MEDS ORDERED: AMINOCAPROIC ACID 5 GM INJ ONE ×4 (11:57→14:58)
[2016-12-26] MEDS ORDERED: POTASSIUM CHLORIDE 40 MEQ INJ ONE (11:58)
[2016-12-26] MEDS ORDERED: LIDOCAINE 100 MG SYRINGE ONE (11:59)
[2016-12-26] MEDS ORDERED: MAGNESIUM SULFATE (MG) 50% 10 ML INJ ONE (11:59)
[2016-12-26] MEDS ORDERED: MANNITOL 25% 150 ML ONE (12:00)
[2016-12-26] MEDS ORDERED: PHENYLephrine 10 MG INJ ONE (12:01)
[2016-12-26] MEDS ORDERED: NA BICARBONATE 8.4% 50 ML SYG ONE (12:04)
[2016-12-26] MEDS ORDERED: FUROSEMIDE 20 MG INJ ONE (12:54)
[2016-12-26] MEDS ORDERED: CEFAZOLIN 1 GM INJ ONE ×2 (12:59→14:58)
[2016-12-26] MEDS ORDERED: ROCURONIUM 50 MG INJ ONE (15:00)
[2016-12-26] MEDS ORDERED: LIDOCAINE 2% (SDV) 5 ML INJ ONE (15:00)
[2016-12-26] MEDS ORDERED: ETOMIDATE 20 MG INJ ONE (15:00)
[2016-12-26] MEDS ORDERED: PROTAMINE 250 MG INJ ONE (15:03)
[2016-12-26] MEDS ORDERED: hydrALAzine 20 MG INJ ONE (15:32)
--- NOTE | 2016-12-26 15:47 | SIPON ---
Date/Time of Note Date/Time of Note DATE: 12/26/16 TIME: 15:46 Operative Report Preoperative Diagnosis CAD, NSTEMI Postoperative Diagnosis SAME Operation/Procedure Performed CABGX4, HERNANDES TO LAD, SVG TO OM1, SVG TO PDA, SVG TO DIAG2 Surgeon see signature line therapeutic recreation assistant MARCIAL PATEL MD Second assist: BETITO MCCLOUD Anesthesia: general Estimated blood loss: other Transfusion Required none Specimen NONE Grafts/Implants none Complications none YOU FIELDS MD Dec 26, 2016 15:47
[2016-12-26] MEDS ORDERED: ACETAMINOPHEN 325 MG TAB PO PRN (16:00)
[2016-12-26] MEDS ORDERED: OXYCODONE/ACETAMINOPHEN (5/325) TAB PO PRN (16:00)
[2016-12-26] MEDS ORDERED: ACETAMINOPHEN 650 MG SUPP PR PRN (16:00)
[2016-12-26] MEDS ORDERED: DEXTROSE 50% 50 ML SYRINGE IV PRN ×2 (16:00)
[2016-12-26] MEDS ORDERED: HYDROmorphONE 0.5 MG/0.5 ML SYG IV PRN (16:00)
[2016-12-26] MEDS ORDERED: ONDANSETRON 4 MG INJ IV PRN (16:00)
[2016-12-26] MEDS ORDERED: NITROGLYCERIN 50 MG/D5W (PMX) 250 ML IV SCH (16:00)
[2016-12-26] MEDS: CEFAZOLIN 1 GM/50 ML (PMX) 50 ML IVPB SCH ×2 (16:00→23:38)
--- NOTE | 2016-12-26 16:42 | OPR ---
DATE OF OPERATION: 12/26/2016 PREOPERATIVE DIAGNOSIS: Three-vessel coronary artery disease, non ST-segment elevation myocardial infarction. POSTOPERATIVE DIAGNOSIS: Three-vessel coronary artery disease, non ST-segment elevation myocardial infarction. PROCEDURE PERFORMED: 1. Coronary artery bypass graft x4, left internal mammary artery to left anterior descending, saphenous vein graft to posterior descending artery and saphenous vein graft to diagonal artery. 2. Saphenous vein graft to obtuse marginal artery, endoscopic vein harvesting, epiaortic scanning of the ascending aorta. SURGEON: You Ladd MD ORACLE SOA DEVELOPER: MARCIAL PATEL MD SECOND CONTROL CLERK: BETITO CHAPARRO. ANESTHESIOLOGIST: Dr. Colin. ANESTHESIA: General endotracheal. COMPLICATIONS: None. Cardiopulmonary bypass time 70 minutes. Crossclamp time was 49 minutes. FINDINGS: LV function was good pre and post-revascularization. No atheromas or plaques were noted in the ascending aorta. The flow in the HERNANDES to LAD was 50 mL per minute. The flow in the diagonal artery was 38 mL per minute. The flow in the OM was 27 mL per minute and the flow in the RCA was 51 mL per minute. Lowest temperature was 35.4 degrees. His LAD was a 2 mm vessel. His diagonal artery was a 1.75 mm vessel. The OM was a 2.25 mm vessel. His RCA was a 2 mm vessel. INDICATION: The patient is a 61-year-old gentleman with diabetes, hypertension who was admitted with chest pain, ruled in for non-STEMI. He underwent angiogram which showed severe 3-vessel coronary artery disease. He was referred for urgent CABG. The benefits, risks, alternatives were explained to the patient and his family, who understood and consented. DESCRIPTION OF PROCEDURE: Patient was brought to the operating room, was placed in supine position. He was induced and underwent general endotracheal intubation without complications. Lines were placed. Antibiotics were given. He was prepped and draped in usual sterile fashion. Median sternotomy was made. Simultaneous endoscopic vein harvesting of the greater saphenous vein from the right lower extremity. Heparin was given. HERNANDES was taken down using clips and cautery. Pericardial well was established. The ascending aorta was scanned. There were no atheromas or plaques. Pursestring was placed in the ascending aorta followed by the right atrium. They cannulated the ascending aorta followed by 2-stage venous cannula in the right atrium. We then placed an ascending aortic vent. Once all our lines were in place and ACT was adequate , we commenced cardiopulmonary bypass. We placed a crossclamp and arrested the heart using antegrade cardioplegia. Once the heart was arrested, we identified the OM1 made an arteriotomy, extended with Taylor scissors and anastomosed our vein graft using 7-0 Prolene in a running fashion in end-to-side manner. The vein grafts cut to length. We then identified the PDA, made arteriotomy, extended with Taylor scissors, anastomosed our vein graft using 7-0 Prolene in a running fashion in end-to-side manner. Vein grafts cut to length and more cardioplegia was given. We then identified the diagonal artery #2. We made an arteriotomy extended with Taylor scissors and anastomosed our vein graft using 7- 0 Prolene in a running fashion in end-to-side manner. We then identified the LAD, made the arteriotomy extended with Taylor scissors, anastomosed our HERNANDES using 7-0 Prolene in a running fashion in end-to-side manner. We gave warm blood, removed the crossclamp, cardioverted into more normal sinus rhythm. We placed a ventricular pacing wire. We then placed a partial clamp on the ascending aorta, made 3 aortotomies and anastomosed our vein graft using 5-0 Prolene in a running fashion in end-to-side manner. From proximal to distal, we anastomosed the diagonal vein graft followed by the RCA, followed by the OM. Partial clamp was removed and vein grafts were deaired. Distal hemostasis was achieved. We began ventilating and then weaned him off cardiopulmonary bypass without difficulty. We then gave protamine. We de-lined the patient. We placed a left pleural tube in the anterior mediastinal tube. Once hemostasis was achieved, we closed the chest using interrupted cables followed by closure of the fascia using 0 Vicryl followed by closure of skin using 4-0 Monocryl in subcuticular fashion. Lower extremity incisions were closed using 3 -0 Vicryl for the deep layer and 4-0 Monocryl for the skin. Dressings were applied. Patient was brought to the ICU in critical but stable condition. Dictated By: YOU LANDRUM/AUGIE Conf#: [id number] DID#: [id number] [facility]
[2016-12-26 16:45] LABS: BASOPHILS % 0.5 % (0.0-2.0); EOSINOPHILS # 0.1 10^3/ul (0.0-0.5); EOSINOPHILS % 1.5 % (0.0-7.0); HEMATOCRIT 28.2 % (42.0-52.0); HEMOGLOBIN 9.9 g/dl (14.0-18.0); LYMPHOCYTES # 0.8 10^3/ul (0.8-2.9); MEAN CORPUSCULAR HEMOGLOBIN 32.5 pg (29.0-33.0); MEAN CORPUSCULAR HGB CONC 35.1 g/dl (32.0-37.0); MEAN CORPUSCULAR VOLUME 92.5 fl (82.0-101.0); MEAN PLATELET VOLUME 11.2 fl (7.4-10.4); MONOCYTE # 0.6 10^3/ul (0.3-0.9); MONOCYTES % 10.4 % (0.0-11.0); NEUTROPHIL # 4.5 10^3/ul (1.6-7.5); NEUTROPHILS % 74.1 % (39.0-77.0); PLATELET COUNT 142 10^3/UL (140-415); RED BLOOD COUNT 3.05 10^6/ul (4.70-6.10); RED CELL DISTRIBUTION WIDTH 14.1 % (11.5-14.5); WHITE BLOOD COUNT 6.1 10^3/ul (4.8-10.8)
--- NOTE | 2016-12-26 16:58 | RADRPT ---
PROCEDURE: XR Chest. CLINICAL INDICATION: Recent CABG TECHNIQUE: A single portable view of the chest was obtained. COMPARISON: 12/20/2016 FINDINGS: An interval median sternotomy is seen. A left chest tube and mediastinal tube are identified. Endotr acheal tube is seen above the level of the milo in satisfactory position. A [place] catheter is seen with the tip in the main pulmonary artery. The cardiomediastinal silhouette is within normal li mits. The lung volumes are low with bibasilar compressive atelectasis. The remaining lungs and pleur al spaces are clear. The soft tissues and osseous structures are unremarkable. IMPRESSION: 1. Low lung volumes with bibasilar compressive atelectasis. 2. Acute postoperative changes with lines and tubes as detailed above. RPTAT: HPNM Physician Krystyna Date Time Electronically viewed and signed by Physician Krystyna on 12/26/2016 16:58 /
[2016-12-26 16:59] LABS: INR 1.3; PROTIME 16.3 Sec (12.2-14.2); PT RATIO 1.3
[2016-12-26 17:00] LABS: PARTIAL THROMBOPLASTIN TIME 29.3 Sec (25.0-35.0)
[2016-12-26] MEDS ORDERED: INSULIN HUMAN REGULAR 100 UNIT in SOD CHLORIDE 0.9% 99 ML IV SCH (17:00)
[2016-12-26] MEDS ORDERED: DOPamine 800 MG in DEXTROSE 5% 230 ML IV SCH (17:00)
[2016-12-26 17:05] LABS: CALCIUM 9.4 mg/dl (8.4-10.2); CREATININE 1.1 mg/dl (0.61-1.24); MAGNESIUM 2.1 mg/dl (1.7-2.5); POTASSIUM 3.9 mmol/L (3.5-5.1)
[2016-12-26] MEDS ORDERED: POTASSIUM CHLORIDE 40 MEQ, CALCIUM CHLORIDE 10% 1 GM in DEXTROSE 5%-0.225% NACL 1,000 ML IV SCH (17:30)
--- NOTE | 2016-12-26 17:35 | PN ---
Date/Time of Note Date/Time of Note DATE: 12/26/16 TIME: 17:34 Assessment/Plan VTE Prophylaxis VTE Prophylaxis Intervention: SCD's Lines/Catheters IV [facility] [place] [facility] Urinary Cath still in place: No Assessment/Plan Assessment/Plan 1. 3 vessel obstructive CAD/Preserved LVEF by LV gram/mildly elevated LVEDP/no sig s/p CABG today 12/26 - Patient transferred to ICU following CABG and tolerated surgery well. Only required small amount of dopamine - Chest tube in place and draining serosanguineous fluid - CT surgery on board and consultation appreciated - right leg bandage in place with no signs of drainage, or discharge. pulses intact 2. Anemia - Most likely secondary to blood loss during surgery - Will continue monitoring and transfuse if hgb <7 - Will continue monitoring, post op Hgb stable at 9.9 3. Insulin-dependent diabetes - A1c 6.5 - Continue on current management - monitoring glucose and well controlled 4. Dyslipidemia - on statin 5. Hypertension - stable 6. Disposition - Continue monitoring in ICU >30 minutes of critical care time was spent with patient and family at bedside. Subjective 24 Hr Interval Summary Free Text/Dictation Patient seen in ICU status post CABG. Patient remains intubated and slowly waking up. Will attempt rapid wean and continue monitoring in ICU setting. Patient tolerated surgery well and chest tube draining serosanguineous fluid. NAD appreciated Exam/Review of Systems Vital Signs Vitals Vital Signs Date Time Temp Pulse Resp B/P Pulse Ox O2 Delivery O2 Flow Rate FiO2 12/26/16 17:00 98.1 90 14 127/51 100 12/25/16 02:23 21 12/22/16 14:04 Room Air Intake and Output 12/25/16 12/25/16 12/26/16 15:00 23:00 07:00 Intake Total 750 ml 500 ml Balance 750 ml 500 ml Exam General: Patient is intubated and in NAD. slowly waking up s/p surgery Head: Normocephalic atraumatic Eyes: EOMI, pupils reactive to light Neck: Supple, nontender, midline Respiratory: Clear to auscultation bilaterally, no wheezing Cardiovascular: regular rate and rhythm, no obvious murmurs. dressing in place midline incision, CDI. Chest tube in place and draining serosanguineous fluid Gastrointestinal: non-tender to palpation, bowel sounds heard. Neurological: Moves all extremities spontaneously Results Result Diagram: 12/26/16 1635 12/26/16 1635 Results 24 hrs Laboratory Tests Test 12/25/16 17:50 12/25/16 20:42 12/26/16 05:56 12/26/16 09:08 Bedside Glucose 120 166 86 White Blood Count 4.7 L Red Blood Count 3.36 L Hemoglobin 10.4 L Hematocrit 31.0 L Mean Corpuscular Volume 92.3 Mean Corpuscular Hemoglobin 31.0 Mean Corpuscular Hemoglobin Concent 33.5 Red Cell Distribution Width 14.0 Platelet Count 165 Mean Platelet Volume 11.9 H Neutrophils % 52.3 Lymphocytes % 26.1 Monocytes % 18.0 H Eosinophils % 2.3 Basophils % 1.1 Nucleated Red Blood Cells % 0.0 Neutrophils # 2.5 Lymphocytes # 1.2 Monocytes # 0.9 Eosinophils # 0.1 Basophils # 0.1 Nucleated Red Blood Cells # 0.0 Sodium Level 139 Potassium Level 4.5 Chloride Level 105 Carbon Dioxide Level 27 Anion Gap 12 Blood Urea Nitrogen 23 H Creatinine 1.12 Glucose Level 55 #L Calcium Level 9.4 Phosphorus Level 4.3 Magnesium Level 1.8 Albumin 3.7 Test 12/26/16 11:18 12/26/16 16:29 12/26/16 16:35 12/26/16 16:49 Bedside Glucose 74 102 White Blood Count 6.1 # Red Blood Count 3.05 L Hemoglobin 9.9 L Hematocrit 28.2 L Mean Corpuscular Volume 92.5 Mean Corpuscular Hemoglobin 32.5 Mean Corpuscular Hemoglobin Concent 35.1 Red Cell Distribution Width 14.1 Platelet Count 142 Mean Platelet Volume 11.2 H Neutrophils % 74.1 Lymphocytes % 13.0 L Monocytes % 10.4 Eosinophils % 1.5 Basophils % 0.5 Nucleated Red Blood Cells % 0.0 Neutrophils # 4.5 Lymphocytes # 0.8 Monocytes # 0.6 Eosinophils # 0.1 Basophils # 0.0 Nucleated Red Blood Cells # 0.0 Prothrombin Time 16.3 #H Prothrombin Time Ratio 1.3 INR International Normalized Ratio 1.30 Activated Partial Thromboplast Time 29.3 Sodium Level 138 Potassium Level 3.9 Chloride Level 104 Carbon Dioxide Level 23 Anion Gap 15 Blood Urea Nitrogen 19 Creatinine 1.10 Glucose Level 86 Calcium Level 9.4 Magnesium Level 2.1 Blood Gas Specimen Source BLMV Arterial Blood Date Drawn 12/26/2016 5:00:52 PM Arterial Blood pH (Temp corrected) 7.328 L Arterial Blood pCO2 (Temp correct) 44.3 Arterial Blood pO2 (Temp corrected) 47.4 *L Arterial Blood HCO3 22.7 Arterial Blood Base Excess -3.2 L Arterial Blood Oxygen Saturation 79.2 L Phil Test N/A Arterial Blood Gas Puncture Site VENOUS LINE Arterial Blood Carboxyhemoglobin 0.3 Arterial Blood Methemoglobin 0.4 Mixed Venous Blood pH 7.328 Mixed Venous Blood PCO2 44.3 Mixed Venous Blood PO2 47.4 H Mixed Venous Blood HCO3 22.7 L Mixed Venous Blood Base Excess -3.2 Mixed Venous Blood O2 Saturation 79.2 H Mixed Venous Blood Total Hemoglobin 11.1 Mixed Venous Blood Oxyhemoglobin 78.6 Mixed Venous Bld Carboxyhemoglobin 0.3 Mixed Venous Blood Methemoglobin 0.4 Blood Gas A-a O2 Differential 404.1 Oxyhemoglobin Percent 78.6 L Total Hemoglobin 11.1 L Blood Gas Temperature 37.0 Blood Gas Respiration Rate 14.0 Blood Gas Actual Respiration Rate 14 Blood Gas Modality VENT - AC FiO2 70.0 Blood Gas Tidal Volume 550.0 Blood Gas Low PEEP Setting 5.0 Blood Gas Critical Value Read Back Ritu DUNN RN Blood Gas Notified Whom Michelet OWENS Blood Gas Notified Time 12/26/2016 5:17:41 PM Medications Medications Current Medications Diagnostic Test (Pha) (Accu-Chek) 1 ea Q1H XX ; Start 12/26/16 at 16:00 Dextrose (D50w Syringe) 25 ml Q15M PRN IV Till BS 80 mg/dL or above x2; Start 12/26/16 at 16:00 Dextrose 50 ml 50 ml Q15M PRN IV Till BS 80 mg/dL or above x2; Start 12/26/16 at 16:00 Potassium Chloride 40 meq/ Calcium Chloride 1 gm/Dextrose/ Sodium Chloride 1, 030 ml @ 60 mls/hr [id number] IV ; Start 12/26/16 at 17:30 Cefazolin Sodium (Ancef 1 Gm/50 ml (Pmx)) 50 ml @ 100 mls/hr Q8H IVPB ; Start 12/26/16 at 16:00; Stop 12/27/16 at 08:29 Hydromorphone HCl (Dilaudid) 0.2 mg Q15M PRN IV PAIN LEVEL 1-5; Start at 16:00 Hydromorphone HCl (Dilaudid) 0.4 mg Q15M PRN IV PAIN LEVEL 6-10; Start at 16:00 Oxycodone/ Acetaminophen (Percocet (5/ 325)) 1 tab Q3H PRN PO PAIN LEVEL 1-5; Start 12/26/16 at 16:00 Oxycodone/ Acetaminophen (Percocet (5/ 325)) 2 tab Q3H PRN PO PAIN LEVEL 6-10; Start 12/26/16 at 16:00 Ondansetron HCl (Zofran Inj) 4 mg Q6H PRN IV NAUSEA AND/OR VOMITING; Start at 16:00 Famotidine (Pepcid Iv) 20 mg BID@08,20 IV ; Start 12/26/16 at 20:00 Acetaminophen (Tylenol Tab) 650 mg Q3H PRN PO ELEVATED TEMPERATURE; Start at 16:00 Acetaminophen 650 mg 650 mg Q3H PRN [place] ELEVATED TEMPERATURE; Start 12/26/16 at 16:00 Magnesium Sulfate/ Dextrose (Magnesium Sulfate 1 Gm/D5W) 100 ml @ 100 mls/hr PRN PRN IVPB PENDING LAB VALUE; Start 12/26/16 at 16:00 Ketorolac Tromethamine (Toradol) 30 mg Q6H PRN IV PAIN; Start 12/26/16 at 16: 30; Stop 12/29/16 at 16:29 CHARISSA BRODY MD Dec 26, 2016 17:35
[2016-12-26 18:20] LABS: AADO2 Arterial 87.8 mmHg (7.0-24.0); Arterial Base Excess -7.2 mmol/L (-3.0-3); Arterial COHb 0.1 % (0.0-3.0); Arterial Fraction of Oxyhgb 96.1 % (93.0-99.0); Arterial HCO3 18.9 mmol/L (22.0-26.0); Arterial MetHb 0.4 % (0.0-1.5); Blood Gas PS 10; MODE VENT - CPAP
[2016-12-26] MEDS: POTASSIUM CHLORIDE 50 ML IVPB PRN ×2 (19:22→20:44)
[2016-12-26] MEDS ORDERED: FAMOTIDINE 20 MG INJ IV SCH (20:00)
[2016-12-26 23:50] LABS: MAGNESIUM 1.9 mg/dl (1.7-2.5); POTASSIUM 4.5 mmol/L (3.5-5.1)
[2016-12-27] VITALS (50 sets, daily range): BP systolic 90–117; BP diastolic 41–63; PULSE 75–152; RESP 12–20; TEMP 98.8–99
[2016-12-27] MEDS: ACCU-CHEK XX SCH ×11 (00:13→12:23)
[2016-12-27] MEDS: MAGNESIUM SULFATE 1 GM/D5W 100 ML IVPB PRN ×2 (00:38→02:15)
[2016-12-27] MEDS: HYDROmorphONE 0.5 MG/0.5 ML SYG IV PRN ×2 (02:34→07:57)
[2016-12-27 03:03] LABS: AADO2 Arterial 98.6 mmHg (7.0-24.0); Arterial Base Excess -4.8 mmol/L (-3.0-3); Arterial COHb 0.2 % (0.0-3.0); Arterial Fraction of Oxyhgb 95.9 % (93.0-99.0); Arterial MetHb 0.5 % (0.0-1.5); Arterial Total Hemglobin 9.5 g/dl (12.0-18.0); Blood Gas PS 10; MODE VENT - CPAP
[2016-12-27] MEDS: KETOROLAC 30 MG INJ IV PRN ×2 (03:49→17:42)
[2016-12-27 05:19] LABS: ABNORMAL IP MESSAGE 1; BASOPHILS % 0.3 % (0.0-2.0); HEMATOCRIT 27.8 % (42.0-52.0); HEMOGLOBIN 9.3 g/dl (14.0-18.0); LYMPHOCYTES # 0.4 10^3/ul (0.8-2.9); LYMPHOCYTES % 4.7 % (15.0-51.0); MEAN CORPUSCULAR HEMOGLOBIN 31.5 pg (29.0-33.0); MEAN CORPUSCULAR HGB CONC 33.5 g/dl (32.0-37.0); MEAN CORPUSCULAR VOLUME 94.2 fl (82.0-101.0); MEAN PLATELET VOLUME 12.3 fl (7.4-10.4); MONOCYTE # 1.3 10^3/ul (0.3-0.9); MONOCYTES % 17.3 % (0.0-11.0); NEUTROPHIL # 5.8 10^3/ul (1.6-7.5); NEUTROPHILS % 77.3 % (39.0-77.0); PLATELET COUNT 169 10^3/UL (140-415); POSITIVE DIFF @See below; RED BLOOD COUNT 2.95 10^6/ul (4.70-6.10); RED CELL DISTRIBUTION WIDTH 14.7 % (11.5-14.5); WHITE BLOOD COUNT 7.5 10^3/ul (4.8-10.8)
[2016-12-27 05:33] LABS: INR 1.08; PT RATIO 1.1
[2016-12-27 05:34] LABS: PARTIAL THROMBOPLASTIN TIME 31.1 Sec (25.0-35.0)
[2016-12-27 05:56] LABS: ALBUMIN 4.1 g/dl (3.3-4.9); CALCIUM 9.4 mg/dl (8.4-10.2); CREATININE 1.21 mg/dl (0.61-1.24); MAGNESIUM 2.6 mg/dl (1.7-2.5); PHOSPHORUS 4.2 mg/dl (2.5-4.9); POTASSIUM 4.7 mmol/L (3.5-5.1)
[2016-12-27 06:05] LABS: CALCIUM 9.4 mg/dl (8.4-10.2); CREATININE 1.23 mg/dl (0.61-1.24); POTASSIUM 4.5 mmol/L (3.5-5.1)
[2016-12-27] MEDS: CEFAZOLIN 1 GM/50 ML (PMX) 50 ML IVPB SCH (08:18)
--- NOTE | 2016-12-27 08:46 | RADRPT ---
PROCEDURE: Chest 1 views. CLINICAL INDICATION: Shortness of breath. TECHNIQUE: AP views of the chest was obtained. COMPARISON: Yesterday FINDINGS: The heart is large. Median sternotomy wires overlie the heart. [place]-Arm[place] catheter is stable and has its tip in the expected location of the main pulmonary artery. Mediastinal drain continues to be christiana ntified over the inferior margin of the heart. Endotracheal tube has been removed. Subtle potential tubing is seen curled over the right hilum. Left-sided chest tube is stable. No pneumothorax as visu alized. Central pulmonary vascular congestion and interstitial prominence is seen in both lungs. Ret rocardiac opacity is identified. Scattered atelectasis is identified in the right lower lung. Osseou s structures are unchanged. IMPRESSION: Cardiomegaly . Stable left chest tube. No visualized pneumothorax. Central pulmonary vascular congestion and interstitial prominence in both lungs. New retrocardiac opacity that may reflect left lower lobe atelectasis or infiltrate combined with sm all pleural effusion. Scattered atelectasis in the right lower lung. Subtle curve tubular density over the right hilum. This finding is new since prior exam. This could reflect material external to the patient. However material in the soft tissues are within the patien t is not definitely excluded. Continued follow-up to assess for persistence of this finding is recom mended. If further characterization is needed CT should be considered. RPTAT: AA .Idris Bazzi MD, Date Time Electronically viewed and signed by .Idris Bazzi MD, on 12/27/2016 08:46 .P/
[2016-12-27] MEDS: METOPROLOL 25 MG TAB PO SCH ×2 (09:00→21:00)
--- NOTE | 2016-12-27 09:56 | CONS ---
Date/Time of Note Date/Time of Note DATE: 12/27/16 TIME: 09:50 Assessment/Plan Assessment/Plan Chief Complaint/Hosp Course 1. Positive troponin/non-ST elevation myocardial infarction in the setting of known obstructive coronary artery disease per catheterization in 2013 with a catheterization report that has been obtained from Andres Anders done actually 05/13/2014 which reads the patient to have a diffuse mutivessel obstructive cad. s/p LHC revealing 3 vessel obstructive cad/Preserved LVEF by LV gram/mildly elevated LVEDP/no sig and now POD#1 s/p 4 vessel cabg(HERNANDES-LAD , SVG-OM/Diag/PDA 2. Chest pain 3. Abnormal electrocardiogram with inferior Q-waves. 4. Hypotension-on low dose dopamine at this time 5. Dyslipidemia. 6. Ongoing tobacco usage. 7. Diabetes mellitus. 8. History of atrial flutter -In SR currently and remains Recc: -Continue tele monitoring in icu -serial ecg's -Continue statin -Resume asa -Hold BB at this time while still on pressors -Follow volume status closely and drain output Problems: Consultation Date/Type/Reason Admit Date/Time Dec 20, 2016 at 06:49 Initial Consult Date 12/20/2016 Type of Consultation: cardiology Reason for Consultation Acute CO Referring Provider: VIRKAM JIMÉNEZ Exam/Review of Systems Vital Signs Vitals Vital Signs Date Time Temp Pulse Resp B/P Pulse Ox O2 Delivery O2 Flow Rate FiO2 12/27/16 08:30 87 13 90/59 98 Nasal Cannula 2.0 12/27/16 08:00 99.2 12/27/16 01:50 35 Intake and Output 12/26/16 12/26/16 12/27/16 15:00 23:00 07:00 Intake Total 2834 ml 930 ml Output Total 3475 ml 802 ml Balance -641 ml 128 ml Exam Review of Systems: CONSTITUTIONAL: No fevers, chills. PULMONARY: No sob CARDIOVASCULAR: Mild pain at sternotomy site and at drain site GASTROINTESTINAL: No nausea/vomiting. GENITOURINARY: No hematuria/dysuria. MUSCULOSKELETAL: No myagias/arthalgias. PSYCHIATRIC: The patient denies depression. NEUROLOGIC: No weakness Constitutional: alert, oriented Psych: no complaints Head: normocephalic ENMT: mucosa pink and moist Neck: jvd (9 cm water), supple Respiratory: diminished breath sounds (at bases/B) Cardiovascular: other (Drains in place), regular rate and rhythm Gastrointestinal: non-tender, soft Musculoskeletal: muscle tone (normal) Extremities: edema (none) Neurological: other (No focal deficits) Results Result Diagram: 12/27/16 0355 12/27/16 0355 Results 24 hrs Laboratory Tests Test 12/26/16 11:18 12/26/16 16:29 12/26/16 16:35 12/26/16 16:49 Bedside Glucose 74 102 White Blood Count 6.1 # Red Blood Count 3.05 L Hemoglobin 9.9 L Hematocrit 28.2 L Mean Corpuscular Volume 92.5 Mean Corpuscular Hemoglobin 32.5 Mean Corpuscular Hemoglobin Concent 35.1 Red Cell Distribution Width 14.1 Platelet Count 142 Mean Platelet Volume 11.2 H Neutrophils % 74.1 Lymphocytes % 13.0 L Monocytes % 10.4 Eosinophils % 1.5 Basophils % 0.5 Nucleated Red Blood Cells % 0.0 Neutrophils # 4.5 Lymphocytes # 0.8 Monocytes # 0.6 Eosinophils # 0.1 Basophils # 0.0 Nucleated Red Blood Cells # 0.0 Prothrombin Time 16.3 #H Prothrombin Time Ratio 1.3 INR International Normalized Ratio 1.30 Activated Partial Thromboplast Time 29.3 Sodium Level 138 Potassium Level 3.9 Chloride Level 104 Carbon Dioxide Level 23 Anion Gap 15 Blood Urea Nitrogen 19 Creatinine 1.10 Glucose Level 86 Calcium Level 9.4 Magnesium Level 2.1 Blood Gas Specimen Source [facility] Arterial Blood Date Drawn 12/26/2016 5:00:00 PM Arterial Blood pH (Temp corrected) 7.328 L Arterial Blood pCO2 (Temp correct) 44.3 Arterial Blood pO2 (Temp corrected) 47.4 *L Arterial Blood HCO3 22.7 Arterial Blood Base Excess -3.2 L Arterial Blood Oxygen Saturation 79.2 L Phil Test N/A Arterial Blood Gas Puncture Site VENOUS LINE Arterial Blood Carboxyhemoglobin 0.3 Arterial Blood Methemoglobin 0.4 Mixed Venous Blood pH 7.328 Mixed Venous Blood PCO2 44.3 Mixed Venous Blood PO2 47.4 H Mixed Venous Blood HCO3 22.7 L Mixed Venous Blood Base Excess -3.2 Mixed Venous Blood O2 Saturation 79.2 H Mixed Venous Blood Total Hemoglobin 11.1 Mixed Venous Blood Oxyhemoglobin 78.6 Mixed Venous Bld Carboxyhemoglobin 0.3 Mixed Venous Blood Methemoglobin 0.4 Blood Gas A-a O2 Differential 404.1 Oxyhemoglobin Percent 78.6 L Total Hemoglobin 11.1 L Blood Gas Temperature 37.0 Blood Gas Respiration Rate 14.0 Blood Gas Actual Respiration Rate 14 Blood Gas Modality VENT - AC FiO2 70.0 Blood Gas Tidal Volume 550.0 Blood Gas Low PEEP Setting 5.0 Blood Gas Critical Value Read Back Ritu DUNN RN Blood Gas Notified Whom Michelet OWENS Blood Gas Notified Time 12/26/2016 5:17:00 PM Test 12/26/16 18:04 12/26/16 20:06 12/26/16 22:09 12/26/16 22:37 Blood Gas Specimen Source Blood arterial Arterial Blood Date Drawn 12/26/2016 6:10:00 PM Arterial Blood pH (Temp corrected) 7.287 *L Arterial Blood pCO2 (Temp correct) 40.5 Arterial Blood pO2 (Temp corrected) 114.7 H Arterial Blood HCO3 18.9 L Arterial Blood Base Excess -7.2 L Arterial Blood Oxygen Saturation 96.6 Phil Test N/A Arterial Blood Gas Puncture Site A-Line Arterial Blood Carboxyhemoglobin 0.1 Arterial Blood Methemoglobin 0.4 Blood Gas A-a O2 Differential 87.8 H Oxyhemoglobin Percent 96.1 Total Hemoglobin 10.0 L Blood Gas Temperature 37.0 Blood Gas Respiration Rate 14.0 Blood Gas Modality VENT - CPAP FiO2 35.0 Blood Gas Low PEEP Setting 5.0 Blood Gas Pressure Support 10 Blood Gas Critical Value Read Back Manisha DUNN RN Blood Gas Notified Whom DT Blood Gas Notified Time 12/26/2016 6:19:00 PM Bedside Glucose 125 172 Potassium Level 4.5 Magnesium Level 1.9 Test 12/26/16 23:07 12/27/16 00:09 12/27/16 01:00 12/27/16 02:10 Bedside Glucose 161 173 136 158 Test 12/27/16 02:45 12/27/16 03:55 12/27/16 03:58 12/27/16 06:31 Blood Gas Specimen Source Blood arterial Arterial Blood Date Drawn 12/27/2016 2:50:42 AM Arterial Blood pH (Temp corrected) 7.316 L Arterial Blood pCO2 (Temp correct) 42.1 Arterial Blood pO2 (Temp corrected) 102.0 H Arterial Blood HCO3 21.0 L Arterial Blood Base Excess -4.8 L Arterial Blood Oxygen Saturation 96.6 Phil Test N/A Arterial Blood Gas Puncture Site A-Line Arterial Blood Carboxyhemoglobin 0.2 Arterial Blood Methemoglobin 0.5 Blood Gas A-a O2 Differential 98.6 H Oxyhemoglobin Percent 95.9 Total Hemoglobin 9.5 L Blood Gas Temperature 37.0 Blood Gas Actual Respiration Rate 15 Blood Gas Modality VENT - CPAP FiO2 35.0 Blood Gas Tidal Volume 610.0 Blood Gas Low PEEP Setting 5.0 Blood Gas Inspiratory Pressure 15.0 Blood Gas Pressure Support 10 Blood Gas Notified Whom MG Blood Gas Notified Time 12/27/2016 3:03:14 AM White Blood Count 7.5 # Red Blood Count 2.95 L Hemoglobin 9.3 L Hematocrit 27.8 L Mean Corpuscular Volume 94.2 Mean Corpuscular Hemoglobin 31.5 Mean Corpuscular Hemoglobin Concent 33.5 Red Cell Distribution Width 14.7 H Platelet Count 169 Mean Platelet Volume 12.3 H Neutrophils % 77.3 H Lymphocytes % 4.7 L Monocytes % 17.3 H Eosinophils % 0.0 Basophils % 0.3 Nucleated Red Blood Cells % 0.0 Neutrophils # 5.8 Lymphocytes # 0.4 L Monocytes # 1.3 H Eosinophils # 0.0 Basophils # 0.0 Nucleated Red Blood Cells # 0.0 Prothrombin Time 14.0 Prothrombin Time Ratio 1.1 INR International Normalized Ratio 1.08 Activated Partial Thromboplast Time 31.1 Sodium Level 144 Potassium Level 4.7 Chloride Level 108 Carbon Dioxide Level 23 Anion Gap 18 H Blood Urea Nitrogen 25 H Creatinine 1.21 Glucose Level 134 Calcium Level 9.4 Phosphorus Level 4.2 Magnesium Level 2.6 H Albumin 4.1 Bedside Glucose 143 103 Test 12/27/16 08:16 Bedside Glucose 117 Medications Medications Current Medications Diagnostic Test (Pha) (Accu-Chek) 1 ea Q1H XX Last administered on 12/27/16t 08:17; Admin Dose 1 EA; Start 12/26/16 at 16:00 Dextrose (D50w Syringe) 25 ml Q15M PRN IV Till BS 80 mg/dL or above x2; Start 12/26/16 at 16:00 Dextrose (D50w Syringe) 50 ml Q15M PRN IV Till BS 80 mg/dL or above x2; Start 12/26/16 at 16:00 Hydromorphone HCl (Dilaudid) 0.2 mg Q15M PRN IV PAIN LEVEL 1-5; Start at 16:00 Hydromorphone HCl (Dilaudid) 0.4 mg Q15M PRN IV PAIN LEVEL 6-10 Last administered on 12/27/16 07:57; Admin Dose 0.4 MG; Start 12/26/16 at 16:00 Oxycodone/ Acetaminophen (Percocet (5/ 325)) 1 tab Q3H PRN PO PAIN LEVEL 1-5; Start 12/26/16 at 16:00 Oxycodone/ Acetaminophen (Percocet (5/ 325)) 2 tab Q3H PRN PO PAIN LEVEL 6-10; Start 12/26/16 at 16:00 Ondansetron HCl (Zofran Inj) 4 mg Q6H PRN IV NAUSEA AND/OR VOMITING Last administered on 12/27/16 03:36; Admin Dose 4 MG; Start 12/26/16 at 16:00 Acetaminophen (Tylenol Tab) 650 mg Q3H PRN PO ELEVATED TEMPERATURE; Start at 16:00 Acetaminophen (Tylenol Supp) 650 mg Q3H PRN [place] ELEVATED TEMPERATURE; Start at 16:00 Ketorolac Tromethamine (Toradol) 30 mg Q6H PRN IV PAIN Last administered on 03:49; Admin Dose 30 MG; Start 12/26/16 at 16:30; Stop 12/29/16 at 16: 29 Metoprolol Tartrate (Lopressor) 25 mg BID PO ; Start 12/27/16 at 09:00 Atorvastatin Calcium (Lipitor) 40 mg HS NGT ; Start 12/27/16 at 21:00 JOSE C LLOYD Dec 27, 2016 09:56
[2016-12-27 10:10] LABS: AADO2 Arterial 404.1 mmHg (7.0-24.0); Arterial Base Excess -3.2 mmol/L (-3.0-3); Arterial COHb 0.3 % (0.0-3.0); Arterial Fraction of Oxyhgb 78.6 % (93.0-99.0); Arterial HCO3 22.7 mmol/L (22.0-26.0); Arterial MetHb 0.4 % (0.0-1.5); Arterial Total Hemglobin 11.1 g/dl (12.0-18.0); MODE VENT - AC; Sample Type BLMV
[2016-12-27 10:15] LABS: MODE VENT - AC; MetHgb Mixed Venous 0.4 %; Mixed Venous Base Excess -3.2 mmol/L; Mixed Venous COHb 0.3 %; Mixed Venous Fraction OxyHgb 78.6 %; Mixed Venous Oxygen Sat 79.2 mmHG (65.0-75.0); Mixed Venous Total Hemglobin 11.1 g/dl; Sample Type BLMV
--- NOTE | 2016-12-27 11:50 | PN ---
Date/Time of Note Date/Time of Note DATE: 12/27/16 TIME: 11:50 Assessment/Plan VTE Prophylaxis VTE Prophylaxis Intervention: SCD's Lines/Catheters IV Catheter Type (from Nrs): Cordis Central line still needed: Yes Urinary Cath still in place: No Assessment/Plan Assessment/Plan 1. 3 vessel obstructive CAD/Preserved LVEF by LV gram/mildly elevated LVEDP/no sig s/p CABG today 12/26 - Patient doing well s/p CABG and off Dopamine. - Chest tube in place and draining serosanguineous fluid - CT surgery on board and consultation appreciated. Okay with transfer to Telemetry - right leg bandage in place with no signs of drainage, or discharge. pulses intact 2. Anemia - Most likely secondary to blood loss during surgery - Will continue monitoring and transfuse if hgb <7 - Will continue monitoring, post op Hgb stable at 9.3 3. Insulin-dependent diabetes - A1c 6.5 - Continue on current management - monitoring glucose and well controlled - will d/c insulin drip and change to regime prior to surgery 4. Dyslipidemia - on statin 5. Hypertension - stable 6. Disposition - transfer to telemetry per CT surgery for continued monitoring and observation >30 minutes of critical care time was spent with patient at bedside. Subjective 24 Hr Interval Summary Free Text/Dictation Patient is doing well s/p extubation. Has some discomfort at site of sternal incision but denies any chest pain, shortness of breath, dizziness, nausea, vomiting, or abdominal issues. He required a small dose of Dopamine this am but was able to be weaned off. Patient has no new complaints and no acute overnight events. Exam/Review of Systems Vital Signs Vitals Vital Signs Date Time Temp Pulse Resp B/P Pulse Ox O2 Delivery O2 Flow Rate FiO2 12/27/16 10:45 86 18 98/63 99 12/27/16 09:00 Nasal Cannula 1.0 12/27/16 08:00 99.2 12/27/16 01:50 35 Intake and Output 12/26/16 12/26/16 12/27/16 15:00 23:00 07:00 Intake Total 2834 ml 930 ml Output Total 3475 ml 802 ml Balance -641 ml 128 ml Exam General: Patient still comfortably in chair, NAD Head: Normocephalic atraumatic Eyes: EOMI, pupils reactive to light Neck: Supple, nontender, midline Respiratory: Clear to auscultation bilaterally, no wheezing Cardiovascular: regular rate and rhythm, no obvious murmurs. dressing in place midline incision, CDI. Chest tube in place and draining serosanguineous fluid Gastrointestinal: non-tender to palpation, bowel sounds heard. Neurological: Moves all extremities spontaneously Results Result Diagram: 12/27/16 0355 12/27/16 0355 Results 24 hrs Laboratory Tests Test 12/26/16 15:48 12/26/16 16:29 12/26/16 16:35 12/26/16 18:04 Blood Gas Specimen Source [facility] Blood arterial Arterial Blood Date Drawn 12/26/2016 5:00:00 PM 12/26/2016 6:10:00 PM Arterial Blood pH (Temp corrected) 7.328 L 7.287 *L Arterial Blood pCO2 (Temp correct) 44.3 40.5 Arterial Blood pO2 (Temp corrected) 47.4 *L 114.7 H Arterial Blood HCO3 22.7 18.9 L Arterial Blood Base Excess -3.2 L -7.2 L Arterial Blood Oxygen Saturation 79.2 L 96.6 Phil Test N/A N/A Arterial Blood Gas Puncture Site VENOUS LINE A-Line Arterial Blood Carboxyhemoglobin 0.3 0.1 Arterial Blood Methemoglobin 0.4 0.4 Blood Gas A-a O2 Differential 404.1 H 87.8 H Oxyhemoglobin Percent 78.6 L 96.1 Total Hemoglobin 11.1 L 10.0 L Blood Gas Temperature 37.0 37.0 Blood Gas Respiration Rate 14.0 14.0 Blood Gas Actual Respiration Rate 14 Blood Gas Modality VENT - AC VENT - CPAP FiO2 70.0 35.0 Blood Gas Tidal Volume 550.0 Blood Gas Low PEEP Setting 5.0 5.0 Blood Gas Critical Value Read Back Ritu DUNN RN Blood Gas Notified Whom Michelet OWENS DT Blood Gas Notified Time 12/26/2016 5:17:00 PM 12/26/2016 6:19:00 PM Bedside Glucose 102 White Blood Count 6.1 # Red Blood Count 3.05 L Hemoglobin 9.9 L Hematocrit 28.2 L Mean Corpuscular Volume 92.5 Mean Corpuscular Hemoglobin 32.5 Mean Corpuscular Hemoglobin Concent 35.1 Red Cell Distribution Width 14.1 Platelet Count 142 Mean Platelet Volume 11.2 H Neutrophils % 74.1 Lymphocytes % 13.0 L Monocytes % 10.4 Eosinophils % 1.5 Basophils % 0.5 Nucleated Red Blood Cells % 0.0 Neutrophils # 4.5 Lymphocytes # 0.8 Monocytes # 0.6 Eosinophils # 0.1 Basophils # 0.0 Nucleated Red Blood Cells # 0.0 Prothrombin Time 16.3 #H Prothrombin Time Ratio 1.3 INR International Normalized Ratio 1.30 Activated Partial Thromboplast Time 29.3 Sodium Level 138 Potassium Level 3.9 Chloride Level 104 Carbon Dioxide Level 23 Anion Gap 15 Blood Urea Nitrogen 19 Creatinine 1.10 Glucose Level 86 Calcium Level 9.4 Magnesium Level 2.1 Blood Gas Pressure Support 10 Test 12/26/16 20:06 12/26/16 22:09 12/26/16 22:37 12/26/16 23:07 Bedside Glucose 125 172 161 Potassium Level 4.5 Magnesium Level 1.9 Test 12/27/16 00:09 12/27/16 01:00 12/27/16 02:10 12/27/16 02:45 Bedside Glucose 173 136 158 Blood Gas Specimen Source Blood arterial Arterial Blood Date Drawn 12/27/2016 2:50:42 AM Arterial Blood pH (Temp corrected) 7.316 L Arterial Blood pCO2 (Temp correct) 42.1 Arterial Blood pO2 (Temp corrected) 102.0 H Arterial Blood HCO3 21.0 L Arterial Blood Base Excess -4.8 L Arterial Blood Oxygen Saturation 96.6 Phil Test N/A Arterial Blood Gas Puncture Site A-Line Arterial Blood Carboxyhemoglobin 0.2 Arterial Blood Methemoglobin 0.5 Blood Gas A-a O2 Differential 98.6 H Oxyhemoglobin Percent 95.9 Total Hemoglobin 9.5 L Blood Gas Temperature 37.0 Blood Gas Actual Respiration Rate 15 Blood Gas Modality VENT - CPAP FiO2 35.0 Blood Gas Tidal Volume 610.0 Blood Gas Low PEEP Setting 5.0 Blood Gas Inspiratory Pressure 15.0 Blood Gas Pressure Support 10 Blood Gas Notified Whom MG Blood Gas Notified Time 12/27/2016 3:03:14 AM Test 12/27/16 03:55 12/27/16 03:58 12/27/16 06:31 12/27/16 08:16 White Blood Count 7.5 # Red Blood Count 2.95 L Hemoglobin 9.3 L Hematocrit 27.8 L Mean Corpuscular Volume 94.2 Mean Corpuscular Hemoglobin 31.5 Mean Corpuscular Hemoglobin Concent 33.5 Red Cell Distribution Width 14.7 H Platelet Count 169 Mean Platelet Volume 12.3 H Neutrophils % 77.3 H Lymphocytes % 4.7 L Monocytes % 17.3 H Eosinophils % 0.0 Basophils % 0.3 Nucleated Red Blood Cells % 0.0 Neutrophils # 5.8 Lymphocytes # 0.4 L Monocytes # 1.3 H Eosinophils # 0.0 Basophils # 0.0 Nucleated Red Blood Cells # 0.0 Prothrombin Time 14.0 Prothrombin Time Ratio 1.1 INR International Normalized Ratio 1.08 Activated Partial Thromboplast Time 31.1 Sodium Level 144 Potassium Level 4.7 Chloride Level 108 Carbon Dioxide Level 23 Anion Gap 18 H Blood Urea Nitrogen 25 H Creatinine 1.21 Glucose Level 134 Calcium Level 9.4 Phosphorus Level 4.2 Magnesium Level 2.6 H Albumin 4.1 Bedside Glucose 143 103 117 Test 12/27/16 10:04 12/27/16 10:11 Bedside Glucose 108 Blood Gas Specimen Source [facility] Arterial Blood Date Drawn 12/26/2016 5:00:00 PM Arterial Blood Gas Puncture Site PUL ART LINE Phil Test N/A Mixed Venous Blood pH 7.328 Mixed Venous Blood PCO2 44.3 Mixed Venous Blood PO2 47.4 H Mixed Venous Blood HCO3 22.7 L Mixed Venous Blood Base Excess -3.2 Mixed Venous Blood O2 Saturation 79.2 H Mixed Venous Blood Total Hemoglobin 11.1 Mixed Venous Blood Oxyhemoglobin 78.6 Mixed Venous Bld Carboxyhemoglobin 0.3 Mixed Venous Blood Methemoglobin 0.4 Blood Gas A-a O2 Differential 404.1 Blood Gas Temperature 37.0 Blood Gas Respiration Rate 14.0 Blood Gas Actual Respiration Rate 14 Blood Gas Modality VENT - AC FiO2 70.0 Blood Gas Tidal Volume 550.0 Blood Gas Low PEEP Setting 5.0 Blood Gas Critical Value Read Back Ritu DUNN RN Blood Gas Notified Whom Michelet OWENS Blood Gas Notified Time 12/26/2016 5:17:00 PM Medications Medications Current Medications Diagnostic Test (Pha) (Accu-Chek) 1 ea Q1H XX Last administered on 12/27/16t 10:45; Admin Dose 1 EA; Start 12/26/16 at 16:00 Dextrose (D50w Syringe) 25 ml Q15M PRN IV Till BS 80 mg/dL or above x2; Start 12/26/16 at 16:00 Dextrose (D50w Syringe) 50 ml Q15M PRN IV Till BS 80 mg/dL or above x2; Start 12/26/16 at 16:00 Hydromorphone HCl (Dilaudid) 0.2 mg Q15M PRN IV PAIN LEVEL 1-5; Start at 16:00 Hydromorphone HCl (Dilaudid) 0.4 mg Q15M PRN IV PAIN LEVEL 6-10 Last administered on 12/27/16 07:57; Admin Dose 0.4 MG; Start 12/26/16 at 16:00 Oxycodone/ Acetaminophen (Percocet (5/ 325)) 1 tab Q3H PRN PO PAIN LEVEL 1-5; Start 12/26/16 at 16:00 Oxycodone/ Acetaminophen (Percocet (5/ 325)) 2 tab Q3H PRN PO PAIN LEVEL 6-10; Start 12/26/16 at 16:00 Ondansetron HCl (Zofran Inj) 4 mg Q6H PRN IV NAUSEA AND/OR VOMITING Last administered on 12/27/16 03:36; Admin Dose 4 MG; Start 12/26/16 at 16:00 Acetaminophen (Tylenol Tab) 650 mg Q3H PRN PO ELEVATED TEMPERATURE; Start at 16:00 Acetaminophen (Tylenol Supp) 650 mg Q3H PRN [place] ELEVATED TEMPERATURE; Start at 16:00 Ketorolac Tromethamine (Toradol) 30 mg Q6H PRN IV PAIN Last administered on 03:49; Admin Dose 30 MG; Start 12/26/16 at 16:30; Stop 12/29/16 at 16: 29 Metoprolol Tartrate (Lopressor) 25 mg BID PO ; Start 12/27/16 at 09:00 Atorvastatin Calcium (Lipitor) 40 mg HS NGT ; Start 12/27/16 at 21:00 Aspirin (Ecotrin) 325 mg DAILY PO ; Start 12/28/16 at 09:00 Insulin Glargine (Lantus) 20 unit DAILY@20 SC ; Start 12/27/16 at 20:00; Status UNV Miscellaneous Information (* Miscellaneous Pharmacy Order) Discontinue current oral sulfonylur... ONCE ONCE XX ; Start 12/27/16 at 12:00; Stop 12/27/16 at 12:01; Status UNV Miscellaneous Information (* Miscellaneous Pharmacy Order) HYPOGLYCEMIA PROTOCOL w... ONCE ONCE XX ; Start 12/27/16 at 12:00; Stop 12/27/16 at 12:01 ; Status UNV Miscellaneous Information (* Miscellaneous Pharmacy Order) Discontinue all previ... ONCE ONCE XX ; Start 12/27/16 at 12:00; Stop 12/27/16 at 12:01; Status UNV CHARISSA BRODY MD Dec 27, 2016 11:50
[2016-12-27] MEDS: INSULIN ASPART [NOVOLOG] 3 ML PEN SC SCH ×3 (12:23→21:48)
[2016-12-27] MEDS ORDERED: morphine 2 MG INJ IV ONE (20:00)
[2016-12-27] MEDS ORDERED: METOPROLOL 5 MG INJ IV PRN (21:00)
[2016-12-27] MEDS ORDERED: AMIODARONE 150MG/D5W BOLUS 100 ML IV ONE (21:00)
[2016-12-27] MEDS ORDERED: AMIODARONE 900 MG in DEXTROSE 5% 482 ML IV SCH (21:00)
[2016-12-27] MEDS: ATORVASTATIN 40 MG TAB NGT SCH (21:40)
[2016-12-27] MEDS: INSULIN GLARGINE [LANtus] 3 ML PEN SC SCH (21:47)
[2016-12-28] VITALS (12 sets, daily range): BP systolic 97–111; BP diastolic 54–72; PULSE 81–100; RESP 16–19
[2016-12-28] MEDS: OXYCODONE/ACETAMINOPHEN (5/325) TAB PO PRN ×5 (00:11→23:31)
[2016-12-28] MEDS ORDERED: SOD CHLORIDE 0.9% 500 ML IV ONE (02:30)
[2016-12-28 04:06] LABS: ABNORMAL IP MESSAGE 1; BASOPHILS % 0.2 % (0.0-2.0); EOSINOPHILS % 0.8 % (0.0-7.0); HEMATOCRIT 21.6 % (42.0-52.0); HEMOGLOBIN 7.4 g/dl (14.0-18.0); LYMPHOCYTES # 0.6 10^3/ul (0.8-2.9); LYMPHOCYTES % 11.7 % (15.0-51.0); MEAN CORPUSCULAR HEMOGLOBIN 32.3 pg (29.0-33.0); MEAN CORPUSCULAR HGB CONC 34.3 g/dl (32.0-37.0); MEAN CORPUSCULAR VOLUME 94.3 fl (82.0-101.0); MEAN PLATELET VOLUME 12.4 fl (7.4-10.4); MONOCYTE # 0.8 10^3/ul (0.3-0.9); NEUTROPHIL # 3.4 10^3/ul (1.6-7.5); NEUTROPHILS % 70.1 % (39.0-77.0); PLATELET COUNT 122 10^3/UL (140-415); POSITIVE DIFF @See below; RED BLOOD COUNT 2.29 10^6/ul (4.70-6.10); RED CELL DISTRIBUTION WIDTH 14.7 % (11.5-14.5); WHITE BLOOD COUNT 4.9 10^3/ul (4.8-10.8)
[2016-12-28 04:08] LABS: MONOCYTES % 16.6 % (0.0-11.0)
[2016-12-28 04:28] LABS: ALBUMIN 3.1 g/dl (3.3-4.9); CALCIUM 8.4 mg/dl (8.4-10.2); CREATININE 1.12 mg/dl (0.61-1.24); PHOSPHORUS 4.2 mg/dl (2.5-4.9); POTASSIUM 4.6 mmol/L (3.5-5.1)
[2016-12-28 05:33] LABS: CK-MB 2.74 ng/ml (0.0-2.4); TROPONIN-I 0.454 ng/ml (0.00-0.12)
[2016-12-28] MEDS ORDERED: AMIODARONE 150MG/D5W BOLUS 100 ML IV ONE ×2 (07:00→22:30)
--- NOTE | 2016-12-28 07:03 | EN ---
Date/Time of Note Date/Time of Note DATE: 12/28/16 TIME: 06:55 Event Note Medicine Medicine Event Note Was called by the RN overnight to assess the patient for hypotension. Patient' s blood pressure was noted to be 97/54. Patient's amiodarone was held at this time. Patient did report some mild chest pain along the surgical site of the chest.. EKG was performed which did show some questionable ST depressions in 2 3 and aVF. Troponin was ordered which was elevated at 0.46 which was slightly elevated from the troponin on 12/22. Patient was given 500 cc normal saline bolus. Patient reported resolution of his chest pain through the night. Repeat troponin approximately 5 hours later showed a level of 0.454 with a CK- MB of 2.74. Patient was chest pain-free. Patient's blood pressure also improved. Continue telemetry monitoring. Continue hemodynamic monitoring. Repeat EKG. AUIDE WHITE Dec 28, 2016 07:03
[2016-12-28] MEDS: ASPIRIN (EC) 325 MG TAB PO SCH (08:14)
[2016-12-28] MEDS: METOPROLOL 25 MG TAB PO SCH ×2 (08:15→21:23)
[2016-12-28] MEDS: INSULIN ASPART [NOVOLOG] 3 ML PEN SC SCH ×5 (08:16→21:00)
[2016-12-28 09:43] LABS: CK-MB 2.19 ng/ml (0.0-2.4); TROPONIN-I 0.417 ng/ml (0.00-0.12)
[2016-12-28] MEDS: DOCUSATE SODIUM 100 MG CAP PO SCH (12:59)
[2016-12-28] MEDS: POLYETHYLENE GLYCOL 17 GM PACKET PO SCH (12:59)
--- NOTE | 2016-12-28 13:06 | CONS ---
Date/Time of Note Date/Time of Note DATE: 12/28/16 TIME: 13:00 Assessment/Plan Assessment/Plan Chief Complaint/Hosp Course 1. Positive troponin/non-ST elevation myocardial infarction in the setting of known obstructive coronary artery disease per catheterization in 2013 with a catheterization report that has been obtained from [facility] done actually 05/13/2014 which reads the patient to have a diffuse mutivessel obstructive cad. s/p LHC revealing 3 vessel obstructive cad/Preserved LVEF by LV gram/mildly elevated LVEDP/no sig and now POD#2 s/p 4 vessel cabg(HERNANDES-LAD , SVG-OM/Diag/PDA 2. Chest pain 3. Abnormal electrocardiogram with inferior Q-waves. 4. Hypotension-on low dose dopamine at this time 5. Dyslipidemia. 6. Ongoing tobacco usage. 7. Diabetes mellitus. 8. History of atrial flutter -Had AF overnight and now back in SR Recc: -Continue tele monitoring in icu -serial ecg's -Continue statin -Continue asa -Continue BB at this time -Will start PO amio in am -Complete amio IV protocol to maintain SR -Follow volume status closely and drain output Problems: Consultation Date/Type/Reason Admit Date/Time Dec 20, 2016 at 06:49 Initial Consult Date 12/20/2016 Type of Consultation: cardiology Reason for Consultation Nstemi Referring Provider: VIKRAM JIMÉNEZ Exam/Review of Systems Vital Signs Vitals Vital Signs Date Time Temp Pulse Resp B/P Pulse Ox O2 Delivery O2 Flow Rate FiO2 12/28/16 12:33 81 12/28/16 12:01 98.2 19 111/72 93 12/28/16 10:00 0.0 21 12/27/16 20:00 Nasal Cannula Intake and Output 12/27/16 12/27/16 12/28/16 15:00 23:00 07:00 Intake Total 504.5 ml 500 ml Output Total 159 ml 300 ml Balance 345.5 ml 200 ml Exam Review of Systems: CONSTITUTIONAL: No fevers, chills. PULMONARY: No sob CARDIOVASCULAR: No chest pain/palpitations GASTROINTESTINAL: No nausea/vomiting. GENITOURINARY: No hematuria/dysuria. MUSCULOSKELETAL: No myagias/arthalgias. PSYCHIATRIC: The patient denies depression. NEUROLOGIC: No weakness Constitutional: alert, oriented Psych: no complaints Head: normocephalic ENMT: mucosa pink and moist Neck: jvd (8-9 cm water), supple Respiratory: diminished breath sounds Cardiovascular: regular rate and rhythm Gastrointestinal: non-tender, soft Musculoskeletal: muscle tone Extremities: edema (trace/B) Neurological: other (No focal deficits) Results Result Diagram: 12/28/16 0300 12/28/16 0302 Results 24 hrs Laboratory Tests Test 12/27/16 16:53 12/27/16 17:18 12/27/16 20:05 12/27/16 21:29 Hematocrit 27.9 L Bedside Glucose 189 233 H Troponin I 0.464 *H Test 12/28/16 03:00 12/28/16 03:02 12/28/16 08:12 12/28/16 08:24 White Blood Count 4.9 # Red Blood Count 2.29 #L Hemoglobin 7.4 #L Hematocrit 21.6 #L Mean Corpuscular Volume 94.3 Mean Corpuscular Hemoglobin 32.3 Mean Corpuscular Hemoglobin Concent 34.3 Red Cell Distribution Width 14.7 H Platelet Count 122 #L Mean Platelet Volume 12.4 H Neutrophils % 70.1 Lymphocytes % 11.7 L Monocytes % 16.6 H Eosinophils % 0.8 Basophils % 0.2 Nucleated Red Blood Cells % 0.0 Neutrophils # 3.4 Lymphocytes # 0.6 L Monocytes # 0.8 Eosinophils # 0.0 Basophils # 0.0 Nucleated Red Blood Cells # 0.0 Creatine Kinase 388 H 381 H Creatine Kinase Index 0.7 0.6 Creatinine Kinase MB (Mass) 2.74 H 2.19 Troponin I 0.454 *H 0.417 *H Sodium Level 135 Potassium Level 4.6 Chloride Level 102 Carbon Dioxide Level 25 Anion Gap 13 Blood Urea Nitrogen 31 H Creatinine 1.12 Glucose Level 193 Calcium Level 8.4 Phosphorus Level 4.2 Magnesium Level 2.0 Albumin 3.1 #L Bedside Glucose 248 H Test 12/28/16 11:35 Bedside Glucose 287 H Medications Medications Current Medications Dextrose (D50w Syringe) 25 ml Q15M PRN IV Till BS 80 mg/dL or above x2; Start 12/26/16 at 16:00 Dextrose (D50w Syringe) 50 ml Q15M PRN IV Till BS 80 mg/dL or above x2; Start 12/26/16 at 16:00 Oxycodone/ Acetaminophen (Percocet (5/ 325)) 1 tab Q3H PRN PO PAIN LEVEL 1-5; Start 12/26/16 at 16:00 Oxycodone/ Acetaminophen (Percocet (5/ 325)) 2 tab Q3H PRN PO PAIN LEVEL 6-10 Last administered on 12/28/16 06:43; Admin Dose 2 TAB; Start 12/26/16 at 16: 00 Ondansetron HCl (Zofran Inj) 4 mg Q6H PRN IV NAUSEA AND/OR VOMITING Last administered on 12/27/16 03:36; Admin Dose 4 MG; Start 12/26/16 at 16:00 Acetaminophen (Tylenol Tab) 650 mg Q3H PRN PO ELEVATED TEMPERATURE; Start at 16:00 Ketorolac Tromethamine (Toradol) 30 mg Q6H PRN IV PAIN Last administered on 17:42; Admin Dose 30 MG; Start 12/26/16 at 16:30; Stop 12/29/16 at 16: 29 Metoprolol Tartrate (Lopressor) 25 mg BID PO Last administered on 12/28/16 08 :15; Admin Dose 25 MG; Start 12/27/16 at 09:00 Atorvastatin Calcium (Lipitor) 40 mg HS NGT Last administered on 12/27/16 21: 40; Admin Dose 40 MG; Start 12/27/16 at 21:00 Aspirin (Ecotrin) 325 mg DAILY PO Last administered on 12/28/16 08:14; Admin Dose 325 MG; Start 12/28/16 at 09:00 Insulin Glargine 20 unit 20 unit DAILY@20 SC Last administered on 12/27/16 21 :47; Admin Dose 20 UNIT; Start 12/27/16 at 20:00 Amiodarone HCl/ Dextrose (Cordarone Iv/ D5W) 500 ml @ 0 mls/hr Q0M IV ; Start 12/27/16 at 21:00; Stop 12/28/16 at 20:59 Metoprolol Tartrate (Lopressor) 2.5 mg Q4H PRN IV ELEVATED HEART RATE; Start 12/27/16 at 21:00 Polyethylene Glycol (Miralax) 17 gm DAILY PO ; Start 12/28/16 at 12:00 Docusate Sodium (Colace) 100 mg DAILY PO ; Start 12/28/16 at 12:00 JOSE C LLOYD Dec 28, 2016 13:06
--- NOTE | 2016-12-28 13:44 | PN ---
Date/Time of Note Date/Time of Note DATE: 12/28/16 TIME: 13:39 Assessment/Plan VTE Prophylaxis VTE Prophylaxis Intervention: SCD's Lines/Catheters IV Catheter Type (from Nrsg): Saline Lock Urinary Cath still in place: No Assessment/Plan Assessment/Plan 1. 3 vessel obstructive CAD/Preserved LVEF by LV gram/mildly elevated LVEDP/no sig s/p CABG today 12/26 - Patient had episode of arrhythmia last night and started on Amiodarone. Currently rate controlled - Chest tube in place and draining serosanguineous fluid - CT surgery on board and consultation appreciated. - right leg incision site clean with no signs of drainage, or discharge. pulses intact 2. Anemia - Hgb 7.4 this am but will hold off on transfusing. Not experiencing weakness or fatigue. - Most likely secondary to blood loss during surgery - Will continue monitoring and transfuse if hgb <7 3. Insulin-dependent diabetes - A1c 6.5 - Continue on current management - monitoring glucose and will add mealtime coverage 4. Dyslipidemia - on statin 5. Hypertension - stable 6. Disposition - Continue monitoring on Telemetry Subjective 24 Hr Interval Summary Free Text/Dictation Patient had an episode of chest pain last night with new onset atrial fibrillation. Started on Amiodarone drip and chest pain is located at site of surgical incision. Family concerned about IJ since not dressed well and causing irritation. Peripheral IV line in place and requested removal of line. Exam/Review of Systems Vital Signs Vitals Vital Signs Date Time Temp Pulse Resp B/P Pulse Ox O2 Delivery O2 Flow Rate FiO2 12/28/16 12:33 81 12/28/16 12:01 98.2 19 111/72 93 12/28/16 10:00 0.0 21 12/27/16 20:00 Nasal Cannula Intake and Output 12/27/16 12/27/16 12/28/16 15:00 23:00 07:00 Intake Total 504.5 ml 500 ml Output Total 159 ml 300 ml Balance 345.5 ml 200 ml Exam General: Resting comfortably in bed. NAD. points to chest wall incision site when asked about pain Head: Normocephalic atraumatic, R IJ in place Eyes: EOMI, pupils reactive to light Neck: Supple, nontender, midline Respiratory: Clear to auscultation bilaterally, no wheezing Cardiovascular: regular rate and rhythm, no obvious murmurs. dressing in place midline incision, CDI. Chest tube in place and draining serosanguineous fluid Gastrointestinal: non-tender to palpation, bowel sounds heard. Neurological: Moves all extremities spontaneously Results Result Diagram: 12/28/16 0300 12/28/16 0302 Results 24 hrs Laboratory Tests Test 12/27/16 16:53 12/27/16 17:18 12/27/16 20:05 12/27/16 21:29 Hematocrit 27.9 L Bedside Glucose 189 233 H Troponin I 0.464 *H Test 12/28/16 03:00 12/28/16 03:02 12/28/16 08:12 12/28/16 08:24 White Blood Count 4.9 # Red Blood Count 2.29 #L Hemoglobin 7.4 #L Hematocrit 21.6 #L Mean Corpuscular Volume 94.3 Mean Corpuscular Hemoglobin 32.3 Mean Corpuscular Hemoglobin Concent 34.3 Red Cell Distribution Width 14.7 H Platelet Count 122 #L Mean Platelet Volume 12.4 H Neutrophils % 70.1 Lymphocytes % 11.7 L Monocytes % 16.6 H Eosinophils % 0.8 Basophils % 0.2 Nucleated Red Blood Cells % 0.0 Neutrophils # 3.4 Lymphocytes # 0.6 L Monocytes # 0.8 Eosinophils # 0.0 Basophils # 0.0 Nucleated Red Blood Cells # 0.0 Creatine Kinase 388 H 381 H Creatine Kinase Index 0.7 0.6 Creatinine Kinase MB (Mass) 2.74 H 2.19 Troponin I 0.454 *H 0.417 *H Sodium Level 135 Potassium Level 4.6 Chloride Level 102 Carbon Dioxide Level 25 Anion Gap 13 Blood Urea Nitrogen 31 H Creatinine 1.12 Glucose Level 193 Calcium Level 8.4 Phosphorus Level 4.2 Magnesium Level 2.0 Albumin 3.1 #L Bedside Glucose 248 H Test 12/28/16 11:35 Bedside Glucose 287 H Medications Medications Current Medications Dextrose (D50w Syringe) 25 ml Q15M PRN IV Till BS 80 mg/dL or above x2; Start 12/26/16 at 16:00 Dextrose (D50w Syringe) 50 ml Q15M PRN IV Till BS 80 mg/dL or above x2; Start 12/26/16 at 16:00 Oxycodone/ Acetaminophen (Percocet (5/ 325)) 1 tab Q3H PRN PO PAIN LEVEL 1-5; Start 12/26/16 at 16:00 Oxycodone/ Acetaminophen (Percocet (5/ 325)) 2 tab Q3H PRN PO PAIN LEVEL 6-10 Last administered on 12/28/16 13:00; Admin Dose 2 TAB; Start 12/26/16 at 16: 00 Ondansetron HCl (Zofran Inj) 4 mg Q6H PRN IV NAUSEA AND/OR VOMITING Last administered on 12/27/16 03:36; Admin Dose 4 MG; Start 12/26/16 at 16:00 Acetaminophen (Tylenol Tab) 650 mg Q3H PRN PO ELEVATED TEMPERATURE; Start at 16:00 Ketorolac Tromethamine (Toradol) 30 mg Q6H PRN IV PAIN Last administered on 17:42; Admin Dose 30 MG; Start 12/26/16 at 16:30; Stop 12/29/16 at 16: 29 Metoprolol Tartrate (Lopressor) 25 mg BID PO Last administered on 12/28/16 08 :15; Admin Dose 25 MG; Start 12/27/16 at 09:00 Atorvastatin Calcium (Lipitor) 40 mg HS NGT Last administered on 12/27/16 21: 40; Admin Dose 40 MG; Start 12/27/16 at 21:00 Aspirin (Ecotrin) 325 mg DAILY PO Last administered on 12/28/16 08:14; Admin Dose 325 MG; Start 12/28/16 at 09:00 Insulin Glargine 20 unit 20 unit DAILY@20 SC Last administered on 12/27/16 21 :47; Admin Dose 20 UNIT; Start 12/27/16 at 20:00 Amiodarone HCl/ Dextrose (Cordarone Iv/ D5W) 500 ml @ 0 mls/hr Q0M IV ; Start 12/27/16 at 21:00; Stop 12/28/16 at 20:59 Metoprolol Tartrate (Lopressor) 2.5 mg Q4H PRN IV ELEVATED HEART RATE; Start 12/27/16 at 21:00 Polyethylene Glycol (Miralax) 17 gm DAILY PO Last administered on 12/28/16 12 :59; Admin Dose 17 GM; Start 12/28/16 at 12:00 Docusate Sodium (Colace) 100 mg DAILY PO Last administered on 12/28/16t 12:59 ; Admin Dose 100 MG; Start 12/28/16 at 12:00 Amiodarone HCl (Cordarone) 200 mg BID PO ; Start 12/28/16 at 21:00 CHARISSA BRODY MD Dec 28, 2016 13:44
[2016-12-28] MEDS ORDERED: AMIODARONE 200 MG TAB PO ONE (14:00)
--- NOTE | 2016-12-28 16:24 | PN ---
Date/Time of Note Date/Time of Note DATE: 12/28/16 TIME: 16:23 Assessment/Plan Lines/Catheters IV Catheter Type (from [facility]): Saline Lock Swanson in Place (from [facility]): No Assessment/Plan Chief Complaint/Hosp Course doiing well remove cordis hct 21.7 stable transfuse if less than 21 lasix 20mg iv Problems: Exam/Review of Systems Vital Signs Vitals Vital Signs Date Time Temp Pulse Resp B/P Pulse Ox O2 Delivery O2 Flow Rate FiO2 12/28/16 15:25 98.4 83 18 109/63 94 12/28/16 10:00 0.0 21 12/27/16 20:00 Nasal Cannula Intake and Output 12/27/16 12/27/16 12/28/16 15:00 23:00 07:00 Intake Total 504.5 ml 500 ml Output Total 159 ml 300 ml Balance 345.5 ml 200 ml Results Result Diagram: 12/28/16 0300 12/28/16 0302 YOU FIELDS MD Dec 28, 2016 16:24
[2016-12-28] MEDS ORDERED: FUROSEMIDE 20 MG INJ IV ONE (16:30)
--- NOTE | 2016-12-28 18:25 | RADRPT ---
Vent Rate: 51 bpm RR Interval: 0 msec SD Interval: 148 msec QRS Duration: 124 msec QT Interval: 468 msec QTC Interval: 431 msec P-R-T [place]: 50 - -19 - 23 degrees Sinus bradycardia Septal infarct , age undetermined Abnormal ECG Electronically Signed By: Damion Marquez [id number]
--- NOTE | 2016-12-28 18:29 | RADRPT ---
Vent Rate: 81 bpm RR Interval: 0 msec [place] Interval: 142 msec QRS Duration: 116 msec QT Interval: 418 msec QTC Interval: 485 msec P-R-T [place]: 55 - -42 - 14 degrees Normal sinus rhythm Left axis deviation Incomplete right bundle branch block Inferior infarct , age undetermined Abnormal ECG Electronically Signed By: Damion Marquez [id number]
--- NOTE | 2016-12-28 18:30 | RADRPT ---
Vent Rate: 90 bpm RR Interval: 0 msec [place] Interval: 148 msec QRS Duration: 124 msec QT Interval: 396 msec QTC Interval: 484 msec P-R-T [place]: 51 - -9 - 21 degrees Normal sinus rhythm Right bundle branch block Abnormal ECG Electronically Signed By: Damion Marquez [id number]
--- NOTE | 2016-12-28 18:31 | RADRPT ---
Vent Rate: 96 bpm RR Interval: 0 msec [place] Interval: 146 msec QRS Duration: 122 msec QT Interval: 374 msec QTC Interval: 472 msec P-R-T [place]: 68 - -62 - 52 degrees Sinus rhythm with occasional premature ventricular complexes Left anterior fascicular block Anterolateral infarct , age undetermined Abnormal ECG Electronically Signed By: Damion Marquez [id number]
--- NOTE | 2016-12-28 18:31 | RADRPT ---
Vent Rate: 86 bpm RR Interval: 0 msec [place] Interval: 148 msec QRS Duration: 124 msec QT Interval: 402 msec QTC Interval: 481 msec P-R-T [place]: 37 - -36 - 18 degrees Normal sinus rhythm Left axis deviation Right bundle branch block Abnormal ECG Electronically Signed By: Damion Marquez [id number]
--- NOTE | 2016-12-28 18:32 | RADRPT ---
Vent Rate: 94 bpm RR Interval: 0 msec [place] Interval: 146 msec QRS Duration: 122 msec QT Interval: 394 msec QTC Interval: 492 msec P-R-T [place]: 49 - -41 - 20 degrees Normal sinus rhythm Left axis deviation Right bundle branch block Abnormal ECG Electronically Signed By: Damion Marquez [id number]
[2016-12-28] MEDS: INSULIN GLARGINE [LANtus] 3 ML PEN SC SCH (21:07)
[2016-12-28] MEDS: ATORVASTATIN 40 MG TAB NGT SCH (21:23)
[2016-12-28] MEDS: AMIODARONE 200 MG TAB PO SCH (21:23)
[2016-12-28] MEDS ORDERED: MAGNESIUM HYDROXIDE 30ML CUP PO PRN (22:00)
[2016-12-28] MEDS: KETOROLAC 30 MG INJ IV PRN (22:44)
[2016-12-28] MEDS ORDERED: AMIODARONE 900 MG in DEXTROSE 5% 482 ML IV SCH (22:45)
[2016-12-29] VITALS (16 sets, daily range): BP systolic 74–142; BP diastolic 48–73; PULSE 63–87; RESP 16–18
[2016-12-29] MEDS ORDERED: SOD CHLORIDE 0.9% 500 ML IV ONE (05:30)
[2016-12-29 06:19] LABS: BASOPHILS % 0.6 % (0.0-2.0); EOSINOPHILS # 0.1 10^3/ul (0.0-0.5); EOSINOPHILS % 1.9 % (0.0-7.0); HEMATOCRIT 22.3 % (42.0-52.0); HEMOGLOBIN 7.7 g/dl (14.0-18.0); LYMPHOCYTES # 0.7 10^3/ul (0.8-2.9); LYMPHOCYTES % 11.3 % (15.0-51.0); MEAN CORPUSCULAR HEMOGLOBIN 32.5 pg (29.0-33.0); MEAN CORPUSCULAR HGB CONC 34.5 g/dl (32.0-37.0); MEAN CORPUSCULAR VOLUME 94.1 fl (82.0-101.0); MEAN PLATELET VOLUME 11.7 fl (7.4-10.4); MONOCYTE # 0.9 10^3/ul (0.3-0.9); MONOCYTES % 14.9 % (0.0-11.0); NEUTROPHIL # 4.4 10^3/ul (1.6-7.5); NEUTROPHILS % 70.7 % (39.0-77.0); PLATELET COUNT 130 10^3/UL (140-415); POSITIVE DIFF @See below; RED BLOOD COUNT 2.37 10^6/ul (4.70-6.10); RED CELL DISTRIBUTION WIDTH 14.6 % (11.5-14.5); WHITE BLOOD COUNT 6.3 10^3/ul (4.8-10.8)
[2016-12-29 06:58] LABS: ALBUMIN 3.1 g/dl (3.3-4.9); CALCIUM 8.5 mg/dl (8.4-10.2); CREATININE 1.36 mg/dl (0.61-1.24); MAGNESIUM 2.3 mg/dl (1.7-2.5); PHOSPHORUS 3.5 mg/dl (2.5-4.9)
--- NOTE | 2016-12-29 07:13 | PN ---
Date/Time of Note Date/Time of Note DATE: 12/29/16 TIME: 07:12 Assessment/Plan Lines/Catheters IV Catheter Type (from [facility]): Saline Lock Swanson in Place (from [facility]): No Assessment/Plan Chief Complaint/Hosp Course doiing well remove cordis hct 212.7 stable creat 1.37 transfuse if less than 21 remove chest tubes possibly home tomorrow Problems: Exam/Review of Systems Vital Signs Vitals Vital Signs Date Time Temp Pulse Resp B/P Pulse Ox O2 Delivery O2 Flow Rate FiO2 12/29/16 06:00 64 91/53 12/29/16 04:23 98.3 16 98 12/28/16 20:00 Nasal Cannula 2.0 12/28/16 16:48 21 Intake and Output 12/28/16 12/28/16 12/29/16 15:00 23:00 07:00 Intake Total 700 ml 250 ml Output Total 230 ml Balance 700 ml 20 ml Results Result Diagram: 12/29/16 0549 12/29/16 0548 YOU FIELDS MD Dec 29, 2016 07:13
--- NOTE | 2016-12-29 08:06 | RADRPT ---
PROCEDURE: XR Chest. CLINICAL INDICATION: Shortness of breath. TECHNIQUE: Single frontal view. COMPARISON: 12/26/2016. FINDINGS: The endotracheal tube and Bonita-Armen catheter have been removed. The right internal jugular vein hernandez th catheter remains in satisfactory position. The mediastinal drain and left chest tube are in uncha nged position. There are sternal wires. The heart is enlarged. There is atelectasis at the lung bases, worse than seen previously. The lungs are otherwise clear. There is no pleural effusion. There is no pneumothorax. IMPRESSION: 1. Worse appearance of the lungs. 2. Endotracheal tube and Bonita-Armen catheter removed. 3. No other change from 12/26/2016. RPTAT: QQ .Juan Avalos MD, MD Date Time Electronically viewed and signed by .Juan Avalos MD, MD on 12/29/2016 08:06 .R/
[2016-12-29] MEDS: INSULIN ASPART [NOVOLOG] 3 ML PEN SC SCH ×7 (08:38→20:30)
[2016-12-29] MEDS: AMIODARONE 200 MG TAB PO SCH ×2 (08:42→20:23)
[2016-12-29] MEDS: ASPIRIN (EC) 325 MG TAB PO SCH (08:42)
[2016-12-29] MEDS: DOCUSATE SODIUM 100 MG CAP PO SCH (08:42)
[2016-12-29] MEDS: METOPROLOL 25 MG TAB PO SCH ×2 (08:42→20:23)
[2016-12-29] MEDS: OXYCODONE/ACETAMINOPHEN (5/325) TAB PO PRN (08:43)
[2016-12-29] MEDS: POLYETHYLENE GLYCOL 17 GM PACKET PO SCH (08:44)
[2016-12-29] MEDS: SOD FERRIC GLUC COMPLX 125 MG in SOD CHLORIDE 0.9% 100 ML IVPB SCH (09:57)
--- NOTE | 2016-12-29 10:16 | RADRPT ---
PROCEDURE: Chest radiograph CLINICAL INDICATION: Chest tube removal. COMPARISON: Radiograph 12/27/2016. TECHNIQUE: Single frontal chest radiograph. FINDINGS: Interval removal of chest tube in the left lung base. Interval removal of right internal jugular [place]-Amren catheter. Interval decrease size of left pleural effusion. Small right pleural effusion. The heart is mildly enlarged even allowing for portable technique. Median sternotomy. Moderate degenerative endplate spurring in the lower thoracic spine. IMPRESSION: 1. Interval removal of left chest tube with small residual left pleural effusion. 2. Small right pleural effusion. RPTAT: HH Physician Florecita Date Time Electronically viewed and signed by Physician Florecita on 12/29/2016 10:15 LG/
--- NOTE | 2016-12-29 12:18 | PN ---
Date/Time of Note Date/Time of Note DATE: 12/29/16 TIME: 12:13 Assessment/Plan VTE Prophylaxis VTE Prophylaxis Intervention: SCD's Lines/Catheters IV Catheter Type (from Nrsg): Saline Lock Urinary Cath still in place: No Assessment/Plan Assessment/Plan 1. 3 vessel obstructive CAD/Preserved LVEF by LV gram/mildly elevated LVEDP/no sig s/p CABG today 12/26 - Patient experiencing right chest well tenderness with no relief with [place]. Will give one time dose of Morphine and monitor BP - CT removed as well as cordis - CT surgery on board and consultation appreciated. - right leg incision site clean with no signs of drainage, or discharge. pulses intact. still experiencing neuropathy 2. Anemia - Receiving IV iron this am - Hgb 7.7 this am but will hold off on transfusing. Not experiencing weakness or fatigue. - Most likely secondary to blood loss during surgery - Will continue monitoring and transfuse if hct <21 3. Insulin-dependent diabetes - A1c 6.5 - Continue on current management - monitoring glucose and mealtime coverage added 4. Dyslipidemia - on statin 5. Hypertension - patient has been hypotensive after surgery, however MAP >60 - Will adjust medications and decrease Metoprolol to 12.5mg BID given patients dizziness 6. Disposition - Continue monitoring on Telemetry until medically cleared by CT surgery and cardiology Subjective 24 Hr Interval Summary Free Text/Dictation Patient c/o dizziness with standing and ambulation. also experiencing pain in right chest area. Denies any nausea, vomiting, shortness of breath, or abdominal issues. Exam/Review of Systems Vital Signs Vitals Vital Signs Date Time Temp Pulse Resp B/P Pulse Ox O2 Delivery O2 Flow Rate FiO2 12/29/16 11:09 97.6 64 18 97/60 95 12/28/16 20:00 Nasal Cannula 2.0 12/28/16 16:48 21 Intake and Output 12/28/16 12/28/16 12/29/16 15:00 23:00 07:00 Intake Total 700 ml 250 ml Output Total 230 ml Balance 700 ml 20 ml Exam General: Resting comfortably in bed. NAD. Discomfort right chest wall area Head: Normocephalic atraumatic, Eyes: EOMI, pupils reactive to light Neck: Supple, nontender, midline Respiratory: Clear to auscultation bilaterally, no wheezing Cardiovascular: regular rate and rhythm, no obvious murmurs. midline incision clean, dry, and intact with no discharge or drainage appreciated. Gastrointestinal: non-tender to palpation, bowel sounds heard. Neurological: Moves all extremities spontaneously Results Result Diagram: 12/29/16 0549 12/29/16 0548 Results 24 hrs Laboratory Tests Test 12/28/16 17:47 12/28/16 20:59 12/29/16 00:22 12/29/16 05:48 Bedside Glucose 270 H 178 195 Sodium Level 136 Potassium Level 4.0 Chloride Level 104 Carbon Dioxide Level 25 Anion Gap 11 Blood Urea Nitrogen 34 H Creatinine 1.36 H Glucose Level 139 # Calcium Level 8.5 Phosphorus Level 3.5 Magnesium Level 2.3 Albumin 3.1 L Test 12/29/16 05:49 12/29/16 08:30 12/29/16 11:53 White Blood Count 6.3 # Red Blood Count 2.37 L Hemoglobin 7.7 L Hematocrit 22.3 L Mean Corpuscular Volume 94.1 Mean Corpuscular Hemoglobin 32.5 Mean Corpuscular Hemoglobin Concent 34.5 Red Cell Distribution Width 14.6 H Platelet Count 130 L Mean Platelet Volume 11.7 H Neutrophils % 70.7 Lymphocytes % 11.3 L Monocytes % 14.9 H Eosinophils % 1.9 Basophils % 0.6 Nucleated Red Blood Cells % 0.0 Neutrophils # 4.4 Lymphocytes # 0.7 L Monocytes # 0.9 Eosinophils # 0.1 Basophils # 0.0 Nucleated Red Blood Cells # 0.0 Bedside Glucose 154 158 Medications Medications Current Medications Dextrose (D50w Syringe) 25 ml Q15M PRN IV Till BS 80 mg/dL or above x2; Start 12/26/16 at 16:00 Dextrose (D50w Syringe) 50 ml Q15M PRN IV Till BS 80 mg/dL or above x2; Start 12/26/16 at 16:00 Oxycodone/ Acetaminophen (Percocet (5/ 325)) 1 tab Q3H PRN PO PAIN LEVEL 1-5; Start 12/26/16 at 16:00 Oxycodone/ Acetaminophen (Percocet (5/ 325)) 2 tab Q3H PRN PO PAIN LEVEL 6-10 Last administered on 12/29/16t 08:43; Admin Dose 2 TAB; Start 12/26/16 at 16: 00 Ondansetron HCl (Zofran Inj) 4 mg Q6H PRN IV NAUSEA AND/OR VOMITING Last administered on 12/27/16 03:36; Admin Dose 4 MG; Start 12/26/16 at 16:00 Acetaminophen (Tylenol Tab) 650 mg Q3H PRN PO ELEVATED TEMPERATURE; Start at 16:00 Ketorolac Tromethamine (Toradol) 30 mg Q6H PRN IV PAIN Last administered on 22:44; Admin Dose 30 MG; Start 12/26/16 at 16:30; Stop 12/29/16 at 16: 29 Atorvastatin Calcium (Lipitor) 40 mg HS NGT Last administered on 12/28/16 21: 23; Admin Dose 40 MG; Start 12/27/16 at 21:00 Aspirin (Ecotrin) 325 mg DAILY PO Last administered on 12/29/16 08:42; Admin Dose 325 MG; Start 12/28/16 at 09:00 Insulin Glargine (Lantus) 20 unit DAILY@20 SC Last administered on 12/28/16 21:07; Admin Dose 20 UNIT; Start 12/27/16 at 20:00 Metoprolol Tartrate (Lopressor) 2.5 mg Q4H PRN IV ELEVATED HEART RATE; Start 12/27/16 at 21:00 Polyethylene Glycol (Miralax) 17 gm DAILY PO Last administered on 12/29/16 08 :44; Admin Dose 17 GM; Start 12/28/16 at 12:00 Docusate Sodium (Colace) 100 mg DAILY PO Last administered on 12/29/16 08:42 ; Admin Dose 100 MG; Start 12/28/16 at 12:00 Amiodarone HCl (Cordarone) 200 mg BID PO Last administered on 12/29/16 08:42 ; Admin Dose 200 MG; Start 12/28/16 at 21:00 Magnesium Hydroxide (Milk Of Mag) 30 ml BID PRN PO CONSTIPATION Last administered on 12/29/16 08:43; Admin Dose 30 ML; Start 12/28/16 at 22:00 Simethicone 80 mg 80 mg Q6H PRN PO DISTENSION/GAS/BLOATING; Start 12/28/16 at 22:00 Amiodarone HCl 900 mg/Dextrose 500 ml @ 0 mls/hr Q0M IV Last administered on 23:24; Admin Dose 33.4 MLS/HR; Start 12/28/16 at 22:45; Stop at 22:44; Status Future Hold Ferric Sodium Gluconate Complex/ Sodium Chloride (Ferrlecit/NS) 110 ml @ 100 mls/hr Q24H IVPB Last administered on 12/29/16 09:57; Admin Dose 100 MLS/HR; Start 12/29/16 at 09:00; Stop 12/31/16 at 10:05 Morphine Sulfate (morphine) 1 mg ONCE ONCE IV ; Start 12/29/16 at 12:30; Stop 12/29/16 at 12:31 Metoprolol Tartrate (Lopressor) 12.5 mg BID PO ; Start 12/29/16 at 21:00 CHARISSA BRODY MD Dec 29, 2016 12:18
[2016-12-29] MEDS ORDERED: morphine 2 MG INJ IV ONE (12:30)
--- NOTE | 2016-12-29 13:08 | CONS ---
Date/Time of Note Date/Time of Note DATE: 12/29/16 TIME: 13:05 Assessment/Plan Assessment/Plan Chief Complaint/Hosp Course 1. Positive troponin/non-ST elevation myocardial infarction in the setting of known obstructive coronary artery disease per catheterization in 2013 with a catheterization report that has been obtained from [facility] done actually 05/13/2014 which reads the patient to have a diffuse mutivessel obstructive cad. s/p LHC revealing 3 vessel obstructive cad/Preserved LVEF by LV gram/mildly elevated LVEDP/no sig and now Post-op s/p 4 vessel cabg(HERNANDES- LAD, SVG-OM/Diag/PDA 2. Chest pain 3. Abnormal electrocardiogram with inferior Q-waves. 4. Hypotension-on low dose dopamine at this time 5. Dyslipidemia. 6. Ongoing tobacco usage. 7. Diabetes mellitus. 8. History of atrial flutter -Had AF overnight and now back in SR Recc: -Continue tele monitoring in icu -serial ecg's -Continue statin -Continue asa -Continue BB at this time -Will start PO amio in am -Complete amio IV protocol to maintain SR -Follow volume status closely and drain output Problems: Consultation Date/Type/Reason Admit Date/Time Dec 20, 2016 at 06:49 Initial Consult Date 12/20/2016 Type of Consultation: cardiology Reason for Consultation Nstemi Referring Provider: VIKRAM JIMÉNEZ Exam/Review of Systems Vital Signs Vitals Vital Signs Date Time Temp Pulse Resp B/P Pulse Ox O2 Delivery O2 Flow Rate FiO2 12/29/16 12:15 108/58 12/29/16 12:10 64 12/29/16 11:09 97.6 18 95 12/28/16 20:00 Nasal Cannula 2.0 12/28/16 16:48 21 Intake and Output 12/28/16 12/28/16 12/29/16 15:00 23:00 07:00 Intake Total 700 ml 250 ml Output Total 230 ml Balance 700 ml 20 ml Exam Review of Systems: CONSTITUTIONAL: No fevers, chills. PULMONARY: No sob CARDIOVASCULAR: mild pain at sternotomy site GASTROINTESTINAL: No nausea/vomiting. GENITOURINARY: No hematuria/dysuria. MUSCULOSKELETAL: No myagias/arthalgias. PSYCHIATRIC: The patient denies depression. NEUROLOGIC: No weakness Constitutional: alert Psych: no complaints Head: normocephalic ENMT: mucosa pink and moist Neck: jvd (9 cm), supple Respiratory: clear to auscultation Cardiovascular: other (median sternotomy), regular rate and rhythm Gastrointestinal: non-tender, soft Musculoskeletal: muscle tone (normal) Extremities: pitting pedal edema (trace/B) Neurological: other (No focal deficits) Results Result Diagram: 12/29/16 0549 12/29/16 0548 Results 24 hrs Laboratory Tests Test 12/28/16 17:47 12/28/16 20:59 12/29/16 00:22 12/29/16 05:48 Bedside Glucose 270 H 178 195 Sodium Level 136 Potassium Level 4.0 Chloride Level 104 Carbon Dioxide Level 25 Anion Gap 11 Blood Urea Nitrogen 34 H Creatinine 1.36 H Glucose Level 139 # Calcium Level 8.5 Phosphorus Level 3.5 Magnesium Level 2.3 Albumin 3.1 L Test 12/29/16 05:49 12/29/16 08:30 12/29/16 11:53 White Blood Count 6.3 # Red Blood Count 2.37 L Hemoglobin 7.7 L Hematocrit 22.3 L Mean Corpuscular Volume 94.1 Mean Corpuscular Hemoglobin 32.5 Mean Corpuscular Hemoglobin Concent 34.5 Red Cell Distribution Width 14.6 H Platelet Count 130 L Mean Platelet Volume 11.7 H Neutrophils % 70.7 Lymphocytes % 11.3 L Monocytes % 14.9 H Eosinophils % 1.9 Basophils % 0.6 Nucleated Red Blood Cells % 0.0 Neutrophils # 4.4 Lymphocytes # 0.7 L Monocytes # 0.9 Eosinophils # 0.1 Basophils # 0.0 Nucleated Red Blood Cells # 0.0 Bedside Glucose 154 158 Medications Medications Current Medications Dextrose (D50w Syringe) 25 ml Q15M PRN IV Till BS 80 mg/dL or above x2; Start 12/26/16 at 16:00 Dextrose (D50w Syringe) 50 ml Q15M PRN IV Till BS 80 mg/dL or above x2; Start 12/26/16 at 16:00 Oxycodone/ Acetaminophen (Percocet (5/ 325)) 1 tab Q3H PRN PO PAIN LEVEL 1-5; Start 12/26/16 at 16:00 Oxycodone/ Acetaminophen (Percocet (5/ 325)) 2 tab Q3H PRN PO PAIN LEVEL 6-10 Last administered on 12/29/16 08:43; Admin Dose 2 TAB; Start 12/26/16 at 16: 00 Ondansetron HCl (Zofran Inj) 4 mg Q6H PRN IV NAUSEA AND/OR VOMITING Last administered on 12/27/16 03:36; Admin Dose 4 MG; Start 12/26/16 at 16:00 Acetaminophen (Tylenol Tab) 650 mg Q3H PRN PO ELEVATED TEMPERATURE; Start at 16:00 Ketorolac Tromethamine (Toradol) 30 mg Q6H PRN IV PAIN Last administered on 22:44; Admin Dose 30 MG; Start 12/26/16 at 16:30; Stop 12/29/16 at 16: 29 Atorvastatin Calcium (Lipitor) 40 mg HS NGT Last administered on 12/28/16 21: 23; Admin Dose 40 MG; Start 12/27/16 at 21:00 Aspirin (Ecotrin) 325 mg DAILY PO Last administered on 12/29/16 08:42; Admin Dose 325 MG; Start 12/28/16 at 09:00 Insulin Glargine (Lantus) 20 unit DAILY@20 SC Last administered on 12/28/16 21:07; Admin Dose 20 UNIT; Start 12/27/16 at 20:00 Metoprolol Tartrate (Lopressor) 2.5 mg Q4H PRN IV ELEVATED HEART RATE; Start 12/27/16 at 21:00 Polyethylene Glycol (Miralax) 17 gm DAILY PO Last administered on 12/29/16 08 :44; Admin Dose 17 GM; Start 12/28/16 at 12:00 Docusate Sodium (Colace) 100 mg DAILY PO Last administered on 12/29/16 08:42 ; Admin Dose 100 MG; Start 12/28/16 at 12:00 Amiodarone HCl (Cordarone) 200 mg BID PO Last administered on 12/29/16 08:42 ; Admin Dose 200 MG; Start 12/28/16 at 21:00 Magnesium Hydroxide (Milk Of Mag) 30 ml BID PRN PO CONSTIPATION Last administered on 12/29/16 08:43; Admin Dose 30 ML; Start 12/28/16 at 22:00 Simethicone 80 mg 80 mg Q6H PRN PO DISTENSION/GAS/BLOATING; Start 12/28/16 at 22:00 Amiodarone HCl 900 mg/Dextrose 500 ml @ 0 mls/hr Q0M IV Last administered on 23:24; Admin Dose 33.4 MLS/HR; Start 12/28/16 at 22:45; Stop at 22:44; Status Future Hold Ferric Sodium Gluconate Complex/ Sodium Chloride (Ferrlecit/NS) 110 ml @ 100 mls/hr Q24H IVPB Last administered on 12/29/16 09:57; Admin Dose 100 MLS/HR; Start 12/29/16 at 09:00; Stop 12/31/16 at 10:05 Metoprolol Tartrate (Lopressor) 12.5 mg BID PO ; Start 12/29/16 at 21:00 JOSE C LLOYD Dec 29, 2016 13:08
[2016-12-29] MEDS: ATORVASTATIN 40 MG TAB NGT SCH (20:23)
[2016-12-29] MEDS: INSULIN GLARGINE [LANtus] 3 ML PEN SC SCH (20:29)
[2016-12-30] VITALS (10 sets, daily range): BP systolic 102–110; BP diastolic 55–62; PULSE 73–85; RESP 16–18
[2016-12-30 06:34] LABS: BASOPHIL # 0.1 10^3/ul (0.0-0.1); BASOPHILS % 0.7 % (0.0-2.0); EOSINOPHILS # 0.2 10^3/ul (0.0-0.5); EOSINOPHILS % 2.2 % (0.0-7.0); HEMATOCRIT 21.6 % (42.0-52.0); HEMOGLOBIN 7.6 g/dl (14.0-18.0); LYMPHOCYTES # 0.7 10^3/ul (0.8-2.9); LYMPHOCYTES % 9.3 % (15.0-51.0); MEAN CORPUSCULAR HEMOGLOBIN 32.8 pg (29.0-33.0); MEAN CORPUSCULAR HGB CONC 35.2 g/dl (32.0-37.0); MEAN CORPUSCULAR VOLUME 93.1 fl (82.0-101.0); MEAN PLATELET VOLUME 12.4 fl (7.4-10.4); MONOCYTE # 0.9 10^3/ul (0.3-0.9); MONOCYTES % 11.5 % (0.0-11.0); NEUTROPHIL # 5.7 10^3/ul (1.6-7.5); NEUTROPHILS % 75.8 % (39.0-77.0); PLATELET COUNT 170 10^3/UL (140-415); RED BLOOD COUNT 2.32 10^6/ul (4.70-6.10); RED CELL DISTRIBUTION WIDTH 14.6 % (11.5-14.5); WHITE BLOOD COUNT 7.6 10^3/ul (4.8-10.8)
[2016-12-30 07:29] LABS: ALBUMIN 3.1 g/dl (3.3-4.9); CALCIUM 8.5 mg/dl (8.4-10.2); CREATININE 1.03 mg/dl (0.61-1.24); MAGNESIUM 2.4 mg/dl (1.7-2.5); POTASSIUM 4.2 mmol/L (3.5-5.1)
[2016-12-30] MEDS: INSULIN ASPART [NOVOLOG] 3 ML PEN SC SCH ×4 (07:55→12:14)
[2016-12-30] MEDS: POLYETHYLENE GLYCOL 17 GM PACKET PO SCH (08:02)
[2016-12-30] MEDS: DOCUSATE SODIUM 100 MG CAP PO SCH (08:03)
[2016-12-30] MEDS: OXYCODONE/ACETAMINOPHEN (5/325) TAB PO PRN (08:03)
[2016-12-30] MEDS: AMIODARONE 200 MG TAB PO SCH (08:03)
[2016-12-30] MEDS: ASPIRIN (EC) 325 MG TAB PO SCH (08:03)
[2016-12-30] MEDS: METOPROLOL 25 MG TAB PO SCH (08:04)
--- NOTE | 2016-12-30 08:55 | PN ---
Date/Time of Note Date/Time of Note DATE: 12/30/16 TIME: 08:54 Assessment/Plan Lines/Catheters IV Catheter Type (from [facility]): Saline Lock [place] in Place (from [facility]): No Assessment/Plan Chief Complaint/Hosp Course has some runs of SVT/afib NSR now labs stable home per cards and pcp Problems: Exam/Review of Systems Vital Signs Vitals Vital Signs Date Time Temp Pulse Resp B/P Pulse Ox O2 Delivery O2 Flow Rate FiO2 12/30/16 07:21 98.0 82 16 110/62 97 12/30/16 05:17 21 12/29/16 20:00 Nasal Cannula 2.0 Intake and Output 12/29/16 12/29/16 12/30/16 15:00 23:00 07:00 Intake Total 780 ml 250 ml Output Total 850 ml 650 ml Balance -70 ml -400 ml Results Result Diagram: 12/30/16 0550 12/30/16 0538 YOU FIELDS MD Dec 30, 2016 08:55
[2016-12-30] MEDS: SOD FERRIC GLUC COMPLX 125 MG in SOD CHLORIDE 0.9% 100 ML IVPB SCH (09:07)
--- NOTE | 2016-12-30 10:44 | RADRPT ---
PROCEDURE: XR Chest. CLINICAL INDICATION: Shortness of breath. TECHNIQUE: Single frontal view. COMPARISON: 12/29/2016. FINDINGS: There is air space disease at both lung bases consistent with atelectasis or pneumonia, unchanged. T he lungs are otherwise clear. The heart is enlarged. There are sternal wires. There are small bilateral pleural effusions. There is no pneumothorax. IMPRESSION: 1. No change from 12/29/2016. RPTAT: QQ .Juan Avalos MD, MD Date Time Electronically viewed and signed by .Juan Avalos MD, MD on 12/30/2016 10:44 .R/
--- NOTE | 2016-12-30 13:38 | PN ---
Date/Time of Note Date/Time of Note DATE: 12/30/16 TIME: 13:34 Assessment/Plan VTE Prophylaxis VTE Prophylaxis Intervention: SCD's Lines/Catheters IV Catheter Type (from Nrs): Saline Lock Urinary Cath still in place: No Assessment/Plan Assessment/Plan 1. 3 vessel obstructive CAD/Preserved LVEF by LV gram/mildly elevated LVEDP/no sig s/p CABG today 12/26 - Patient doing well and denies any chest pain or tenderness at incision site. - CT surgery on board and consultation appreciated. Cleared for discharge from his perspective - right leg incision site clean with no signs of drainage, or discharge. pulses intact. - Continue current management 2. Anemia - Hgb 7.4 this am but will hold off on transfusing. Not experiencing weakness or fatigue. - Most likely secondary to blood loss during surgery - Will continue monitoring and transfuse if hct <21 3. Insulin-dependent diabetes - A1c 6.5 - Continue on current management - monitoring glucose 4. Dyslipidemia - on statin 5. Hypertension - stable with MAP >60 6. Disposition - Awaiting clearance from Cardiology prior to d/c. Okay per CT surgery Subjective 24 Hr Interval Summary Free Text/Dictation patient doing well and denies any further episodes of chest pain, SOB, nausea, vomiting, dizziness, or abdominal issues. No acute overnight events and no new complaints. Exam/Review of Systems Vital Signs Vitals Vital Signs Date Time Temp Pulse Resp B/P Pulse Ox O2 Delivery O2 Flow Rate FiO2 12/30/16 12:10 73 12/30/16 11:17 97.8 16 102/58 99 12/30/16 05:17 21 12/29/16 20:00 Nasal Cannula 2.0 Intake and Output 12/29/16 12/29/16 12/30/16 15:00 23:00 07:00 Intake Total 780 ml 250 ml Output Total 850 ml 650 ml Balance -70 ml -400 ml Exam General: Resting comfortably in bed. NAD. Head: Normocephalic atraumatic, Eyes: EOMI, pupils reactive to light Neck: Supple, nontender, midline Respiratory: Clear to auscultation bilaterally, no wheezing Cardiovascular: regular rate and rhythm, no obvious murmurs. midline incision clean, dry, and intact with no discharge or drainage appreciated. Gastrointestinal: non-tender to palpation, bowel sounds heard. Neurological: Moves all extremities spontaneously Skin: midline surgical incision healing well with no discharge or drainage. Site of chest tube- dressing CDI Results Result Diagram: 12/30/16 0550 12/30/16 0538 Results 24 hrs Laboratory Tests Test 12/29/16 17:26 12/29/16 20:17 12/30/16 05:38 12/30/16 05:50 Bedside Glucose 147 166 Sodium Level 134 L Potassium Level 4.2 Chloride Level 103 Carbon Dioxide Level 25 Anion Gap 10 Blood Urea Nitrogen 26 H Creatinine 1.03 Glucose Level 131 Calcium Level 8.5 Phosphorus Level 3.0 Magnesium Level 2.4 Albumin 3.1 L White Blood Count 7.6 # Red Blood Count 2.32 L Hemoglobin 7.6 L Hematocrit 21.6 L Mean Corpuscular Volume 93.1 Mean Corpuscular Hemoglobin 32.8 Mean Corpuscular Hemoglobin Concent 35.2 Red Cell Distribution Width 14.6 H Platelet Count 170 # Mean Platelet Volume 12.4 H Neutrophils % 75.8 Lymphocytes % 9.3 L Monocytes % 11.5 H Eosinophils % 2.2 Basophils % 0.7 Nucleated Red Blood Cells % 0.0 Neutrophils # 5.7 Lymphocytes # 0.7 L Monocytes # 0.9 Eosinophils # 0.2 Basophils # 0.1 Nucleated Red Blood Cells # 0.0 Test 12/30/16 08:01 12/30/16 12:09 Bedside Glucose 139 256 H Medications Medications Current Medications Dextrose (D50w Syringe) 25 ml Q15M PRN IV Till BS 80 mg/dL or above x2; Start 12/26/16 at 16:00 Dextrose (D50w Syringe) 50 ml Q15M PRN IV Till BS 80 mg/dL or above x2; Start 12/26/16 at 16:00 Oxycodone/ Acetaminophen (Percocet (5/ 325)) 1 tab Q3H PRN PO PAIN LEVEL 1-5; Start 12/26/16 at 16:00 Oxycodone/ Acetaminophen (Percocet (5/ 325)) 2 tab Q3H PRN PO PAIN LEVEL 6-10 Last administered on 12/30/16 08:03; Admin Dose 2 TAB; Start 12/26/16 at 16: 00 Ondansetron HCl (Zofran Inj) 4 mg Q6H PRN IV NAUSEA AND/OR VOMITING Last administered on 12/27/16 03:36; Admin Dose 4 MG; Start 12/26/16 at 16:00 Acetaminophen (Tylenol Tab) 650 mg Q3H PRN PO ELEVATED TEMPERATURE; Start at 16:00 Atorvastatin Calcium (Lipitor) 40 mg HS NGT Last administered on 12/29/16 20: 23; Admin Dose 40 MG; Start 12/27/16 at 21:00 Aspirin (Ecotrin) 325 mg DAILY PO Last administered on 12/30/16 08:03; Admin Dose 325 MG; Start 12/28/16 at 09:00 Insulin Glargine (Lantus) 20 unit DAILY@20 SC Last administered on 12/29/16 20:29; Admin Dose 20 UNIT; Start 12/27/16 at 20:00 Metoprolol Tartrate (Lopressor) 2.5 mg Q4H PRN IV ELEVATED HEART RATE; Start 12/27/16 at 21:00 Polyethylene Glycol (Miralax) 17 gm DAILY PO Last administered on 12/30/16 08 :02; Admin Dose 17 GM; Start 12/28/16 at 12:00 Docusate Sodium (Colace) 100 mg DAILY PO Last administered on 12/30/16 08:03 ; Admin Dose 100 MG; Start 12/28/16 at 12:00 Amiodarone HCl (Cordarone) 200 mg BID PO Last administered on 12/30/16 08:03 ; Admin Dose 200 MG; Start 12/28/16 at 21:00 Magnesium Hydroxide (Milk Of Mag) 30 ml BID PRN PO CONSTIPATION Last administered on 12/29/16 08:43; Admin Dose 30 ML; Start 12/28/16 at 22:00 Simethicone 80 mg 80 mg Q6H PRN PO DISTENSION/GAS/BLOATING; Start 12/28/16 at 22:00 Ferric Sodium Gluconate Complex/ Sodium Chloride (Ferrlecit/NS) 110 ml @ 100 mls/hr Q24H IVPB Last administered on 12/30/16 09:07; Admin Dose 100 MLS/HR; Start 12/29/16 at 09:00; Stop 12/31/16 at 10:05 Metoprolol Tartrate (Lopressor) 12.5 mg BID PO Last administered on 12/30/16 08:04; Admin Dose 12.5 MG; Start 12/29/16 at 21:00 CHARISSA BRODY MD Dec 30, 2016 13:38
--- NOTE | 2016-12-30 14:10 | PDOCDIS ---
Discharge Instructions DIAGNOSIS Discharge Diagnosis 1. 3 vessel obstructive CAD/Preserved LVEF by LV gram/mildly elevated LVEDP/no sig s/p CABG today 12/26 2. Anemia 3. Insulin-dependent diabetes with A1c 6.5 4. Dyslipidemia 5. Hypertension CONDITION Patient Condition: Good HOME CARE INSTRUCTIONS: Diet Instructions: Low Fat /CholesterolSpecial Diet: soft cardiac [address] [place] ACTIVITY: Activity Restrictions: No Restrictions Bathing Restrictions: Shower FOLLOW UP/APPOINTMENTS Follow-up Plan 1. Take medications as prescribed 2. Follow up with your primary care physician in 1 week 3. Follow up with Cardiology, Dr. Marquez in 1-2 weeks 4. Follow up with Dr. Ladd in 1-2 weeks 5. Have your primary care physician check you blood count in 1 week 6. If experiencing chest pain, worsening shortness of breath, loss of consciousness, or any other concerning signs or symptoms, please return to the ED REFERRALS Other Referrals Damion Marquez MD Specialty: Cardiology Office Address [address] [place] [address] Office Jenna Ladd MD Specialty: Cardiothoracic Surgery Office Address [address] [address] Office CHARISSA BRODY MD Dec 30, 2016 14:10
--- NOTE | 2016-12-30 14:36 | CONS ---
Date/Time of Note Date/Time of Note DATE: 12/30/16 TIME: 14:33 Assessment/Plan Assessment/Plan Chief Complaint/Hosp Course 1. Positive troponin/non-ST elevation myocardial infarction in the setting of known obstructive coronary artery disease per catheterization in 2013 with a catheter[facility] which reads the patient to have a diffuse mutivessel obstructive cad. s/p LHC revealing 3 vessel obstructive cad/Preserved LVEF by LV gram/mildly elevated LVEDP/no sig and now Post-op s/p 4 vessel cabg(HERNANDES- LAD, SVG-OM/Diag/PDA 2. Chest pain 3. Abnormal electrocardiogram with inferior Q-waves. 4. Hypotension-on low dose dopamine at this time 5. Dyslipidemia. 6. Ongoing tobacco usage. 7. Diabetes mellitus. 8. History of atrial flutter -Had AF overnight and now back in SR Recc: -serial ecg's -Continue statin -Continue asa -Continue BB low dose as tolerated -Continue PO amio at d/c -ok for d/c with pitpatient f/u Problems: Consultation Date/Type/Reason Admit Date/Time Dec 20, 2016 at 06:49 Initial Consult Date 12/20/2016 Type of Consultation: cardiology Reason for Consultation Nstemi Referring Provider: VIKRAM JIMÉNEZ Exam/Review of Systems Vital Signs Vitals Vital Signs Date Time Temp Pulse Resp B/P Pulse Ox O2 Delivery O2 Flow Rate FiO2 12/30/16 12:10 73 12/30/16 11:17 97.8 16 102/58 99 12/30/16 05:17 21 12/29/16 20:00 Nasal Cannula 2.0 Intake and Output 12/29/16 12/29/16 12/30/16 15:00 23:00 07:00 Intake Total 780 ml 250 ml Output Total 850 ml 650 ml Balance -70 ml -400 ml Exam Review of Systems: CONSTITUTIONAL: No fevers, chills. PULMONARY: No sob CARDIOVASCULAR: No chest pain/palpitations GASTROINTESTINAL: No nausea/vomiting. GENITOURINARY: No hematuria/dysuria. MUSCULOSKELETAL: No myagias/arthalgias. PSYCHIATRIC: The patient denies depression. NEUROLOGIC: No weakness Constitutional: alert, oriented Psych: no complaints Head: normocephalic ENMT: mucosa pink and moist Neck: jvd (9 cm water), supple Respiratory: diminished breath sounds Cardiovascular: regular rate and rhythm Gastrointestinal: non-tender, soft Musculoskeletal: muscle tone (normal) Extremities: edema (trace/B) Results Result Diagram: 12/30/16 0550 12/30/16 0538 Results 24 hrs Laboratory Tests Test 12/29/16 17:26 12/29/16 20:17 12/30/16 05:38 12/30/16 05:50 Bedside Glucose 147 166 Sodium Level 134 L Potassium Level 4.2 Chloride Level 103 Carbon Dioxide Level 25 Anion Gap 10 Blood Urea Nitrogen 26 H Creatinine 1.03 Glucose Level 131 Calcium Level 8.5 Phosphorus Level 3.0 Magnesium Level 2.4 Albumin 3.1 L White Blood Count 7.6 # Red Blood Count 2.32 L Hemoglobin 7.6 L Hematocrit 21.6 L Mean Corpuscular Volume 93.1 Mean Corpuscular Hemoglobin 32.8 Mean Corpuscular Hemoglobin Concent 35.2 Red Cell Distribution Width 14.6 H Platelet Count 170 # Mean Platelet Volume 12.4 H Neutrophils % 75.8 Lymphocytes % 9.3 L Monocytes % 11.5 H Eosinophils % 2.2 Basophils % 0.7 Nucleated Red Blood Cells % 0.0 Neutrophils # 5.7 Lymphocytes # 0.7 L Monocytes # 0.9 Eosinophils # 0.2 Basophils # 0.1 Nucleated Red Blood Cells # 0.0 Test 12/30/16 08:01 12/30/16 12:09 Bedside Glucose 139 256 H Medications Medications Current Medications Dextrose (D50w Syringe) 25 ml Q15M PRN IV Till BS 80 mg/dL or above x2; Start 12/26/16 at 16:00 Dextrose (D50w Syringe) 50 ml Q15M PRN IV Till BS 80 mg/dL or above x2; Start 12/26/16 at 16:00 Oxycodone/ Acetaminophen (Percocet (5/ 325)) 1 tab Q3H PRN PO PAIN LEVEL 1-5; Start 12/26/16 at 16:00 Oxycodone/ Acetaminophen (Percocet (5/ 325)) 2 tab Q3H PRN PO PAIN LEVEL 6-10 Last administered on 12/30/16t 08:03; Admin Dose 2 TAB; Start 12/26/16 at 16: 00 Ondansetron HCl (Zofran Inj) 4 mg Q6H PRN IV NAUSEA AND/OR VOMITING Last administered on 12/27/16 03:36; Admin Dose 4 MG; Start 12/26/16 at 16:00 Acetaminophen (Tylenol Tab) 650 mg Q3H PRN PO ELEVATED TEMPERATURE; Start at 16:00 Atorvastatin Calcium (Lipitor) 40 mg HS NGT Last administered on 12/29/16 20: 23; Admin Dose 40 MG; Start 12/27/16 at 21:00 Aspirin (Ecotrin) 325 mg DAILY PO Last administered on 12/30/16 08:03; Admin Dose 325 MG; Start 12/28/16 at 09:00 Insulin Glargine (Lantus) 20 unit DAILY@20 SC Last administered on 12/29/16 20:29; Admin Dose 20 UNIT; Start 12/27/16 at 20:00 Metoprolol Tartrate (Lopressor) 2.5 mg Q4H PRN IV ELEVATED HEART RATE; Start 12/27/16 at 21:00 Polyethylene Glycol (Miralax) 17 gm DAILY PO Last administered on 12/30/16 08 :02; Admin Dose 17 GM; Start 12/28/16 at 12:00 Docusate Sodium (Colace) 100 mg DAILY PO Last administered on 12/30/16 08:03 ; Admin Dose 100 MG; Start 12/28/16 at 12:00 Amiodarone HCl (Cordarone) 200 mg BID PO Last administered on 12/30/16 08:03 ; Admin Dose 200 MG; Start 12/28/16 at 21:00 Magnesium Hydroxide (Milk Of Mag) 30 ml BID PRN PO CONSTIPATION Last administered on 12/29/16 08:43; Admin Dose 30 ML; Start 12/28/16 at 22:00 Simethicone 80 mg 80 mg Q6H PRN PO DISTENSION/GAS/BLOATING; Start 12/28/16 at 22:00 Ferric Sodium Gluconate Complex/ Sodium Chloride (Ferrlecit/NS) 110 ml @ 100 mls/hr Q24H IVPB Last administered on 12/30/16 09:07; Admin Dose 100 MLS/HR; Start 12/29/16 at 09:00; Stop 12/31/16 at 10:05 Metoprolol Tartrate (Lopressor) 12.5 mg BID PO Last administered on 10/21/17at 08:04; Admin Dose 12.5 MG; Start 12/29/16 at 21:00 JOSE C LLOYD Dec 30, 2016 14:36
[2016-12-30] MEDS ORDERED: AMIO200T2 PO (14:55)
[2016-12-30] MEDS ORDERED: METO-448 PO (14:55)
[2016-12-30] MEDS ORDERED: ATOR40TA68 PO (14:55)
[2016-12-30] MEDS ORDERED: OXYC-438 PO (15:09)
[2016-12-30] MEDS ORDERED: [UNRECOGNIZED DRUG - CODE] TP (15:10)
--- NOTE | 2017-01-01 09:49 | RADRPT ---
Vent Rate: 81 bpm RR Interval: 0 msec MN Interval: 140 msec QRS Duration: 116 msec QT Interval: 404 msec QTC Interval: 469 msec P-R-T [place]: 51 - -33 - 12 degrees Normal sinus rhythm Left axis deviation Incomplete right bundle branch block Abnormal ECG Electronically Signed By: Damion Marquez [id number]
== END 2016-12-30 16:10 | disposition home or self-care (01) | DRG 234 ==
LOC: E/R 04:18 → MS3 06:49 → TEL 12-21 17:45 → ICU 12-26 11:25 → TEL 12-27 15:38
PROVIDERS: ADMIT Internal Medicine; ATTEND Internal Medicine
PROC: B2101ZZ Fluoroscopy of Single Coronary Artery using Low Osmolar Contrast (ICD-10-PCS; 2016-12-22)
PROC: B2151ZZ Fluoroscopy of Left Heart using Low Osmolar Contrast (ICD-10-PCS; 2016-12-22)
PROC: 4A023N7 Measurement of Cardiac Sampling and Pressure, Left Heart, Percutaneous Approach (ICD-10-PCS; principal; 2016-12-22 10:30)
PROC: 021 Heart and Great Vessels, Bypass (ICD-10-PCS; 2016-12-26)
DX: I21.4 Non-ST elevation (NSTEMI) myocardial infarction (principal); E11.9 Type 2 diabetes mellitus without complications; E78.5 Hyperlipidemia, unspecified; I25.2 Old myocardial infarction; D64.9 Anemia, unspecified; I25.10 Atherosclerotic heart disease of native coronary artery without angina pectoris; Z72.0 Tobacco use; Z79.4 Long term (current) use of insulin
CPT/HCPCS: 36415; 36592; 36600; 71010; 71250; 80048; 80053; 80061; 80069; 81001; 82465; 82550; 82553; 82803; 82947; 82962; 83036; 83735; 84100; 84132; 84443; 84484; 85014; 85025; 85610; 85730; 86850; 86900; 86901; 86920; 87081; 93005; 93306; 93312; 93325; 93458; 93880; 94002; 94003; 94770; 96372; 96374; 97110; 97116; 97161; 97530; J1940; C1887; J0171; J0282; J0360; J0690; J1265; J1644; J1650; J1815; J1885; J2001; J2150; J2250; J2260; J2270; J2370; J2405; J2440; J2720; J2916; J3010; J3370; J3475; J3480; J7030; J7040; J7042; J7060; J7070; P9045; P9047; Q9967

== ENCOUNTER 2017-01-13 16:59 | Inpatient (IN) | payer BC ==
[~2017-01-13] VITALS: Ht 165.1 cm; Wt 85.0 kg
[~2017-01-13 16:59] MED LIST: AMIO200T2 PO; ASPI-535 PO; ATOR40TA68 PO; IBUP-1542 PO; LANT3I SC; METF500T4 PO; METO-448 PO; OXYC-438 PO; PARO-37 PO; RIVA20TA PO; [UNRECOGNIZED DRUG - CODE] TP
--- NOTE | 2017-01-13 17:13 | ERD ---
ER Documentation Chief Complaint Chief Complaint sob for few days, worsen today HPI This is a 61-year-old male with a past medical history of hypertension, hyperlipidemia, diabetes, cardiac arrhythmia on amiodarone, coronary artery disease status post four-vessel CABG on December 26, 2016, currently on aspirin and Xarelto, presenting with progressive worsening SOB over the last several days. He endorses paroxysmal nocturnal dyspnea, which he has been dealing with since he was discharged after his CABG. He states that he sleeps for only about an hour before waking up feeling very short of breath. He needs to sit on the side of the bed for 20 to 30 minutes before trying to go back to sleep. Over the last 3-4 days, however, his dyspnea has been getting worse. He endorses dyspnea on exertion now, and states that he can even brush his teeth without feeling short of breath. He could not walk down the hallway without losing his breath as well. He also started to feel very lightheaded today, and felt at one point that he was going to pass out. This was the primary reason why he called the paramedics. Upon pantograph ii engraver arrival, the patient was oxygenating in the low to mid 80s on room air. He was placed on high flow NRBFM and transferred here for further evaluation. His symptoms have improved on oxygen. The patient denies feeling sick recently. The patient denies fever or chills. The patient has had no headache or vision changes. The patient does not endorse neck or back pain. The patient has had no chest pain. The patient denies vomiting. The patient denies abdominal pain or changes to bowel movements or urination. The patient has had no focal deficits. The patient has had no weakness or numbness or tingling to the face or extremities. ROS All systems reviewed and are negative except as per history of present illness. Medications Home Meds Active Scripts Adhesive Bandage (Tegaderm + Pad) 1 Each Bandage, 1 EACH TP, #20 Prov:CHARISSA BRODY MD 12/30/16 Oxycodone HCl/Acetaminophen (Oxycodone-Acetaminophen 5-325) 1 Each Tablet, 1 TAB PO Q3H Y for PAIN LEVEL 1-5 for 10 Days, #20 TAB Prov:CHARISSA BRODY MD 12/30/16 Metoprolol Tartrate* (Lopressor*) 25 Mg Tab, 12.5 MG PO BID for 30 Days, #60 TAB Prov:CHARISSA BRODY MD 12/30/16 Atorvastatin* (Atorvastatin*) 40 Mg Tablet, 40 MG PO HS for 30 Days, #30 TAB Prov:CHARISSA BRODY MD 12/30/16 Amiodarone Hcl* (Amiodarone Hcl*) 200 Mg Tablet, 200 MG PO DAILY for 30 Days, # 30 TAB Prov:CHARISSA BRODY MD 12/30/16 Reported Medications Insulin Glargine* (Lantus*) 100 Unit/Ml Soln, 40 UNIT SC, #1 VIAL 12/20/16 Aspirin Ec (Aspir 81) 81 Mg Tablet.dr, 81 MG PO DAILY, #30 TAB 12/20/16 Ibuprofen* (Ibuprofen*) 600 Mg Tablet, 600 MG PO Q8, TAB 12/20/16 Paroxetine Hcl* (Paroxetine*) 20 Mg Tablet, 20 MG PO DAILY, TAB 12/20/16 Rivaroxaban* (Xarelto*) 20 Mg Tablet, 20 MG PO WITH DINNER, TAB 12/20/16 Metformin Hcl* (Metformin Hcl*) 500 Mg Tablet, 500 MG PO WITH BREAKFAST DINNE, # 30 TAB 12/20/16 Allergies Allergies: Coded Allergies: No Known Allergy (Unverified , 12/20/16) PMhx/Soc History of Surgery: Yes (CARDIAC CATH) Anesthesia Reaction: No Hx Neurological Disorder: No Hx Respiratory Disorders: No Hx Cardiac Disorders: Yes (HTN, HIGH CHOLESTEROL) Hx Psychiatric Problems: No Hx Miscellaneous Medical Probl: Yes (HTN, OBESITY, SMOKER) Hx Alcohol Use: Yes Hx Substance Use: No Hx Tobacco Use: Yes FmHx Family History: diabetes Physical Exam Vitals Vital Signs Date Time Temp Pulse Resp B/P Pulse Ox O2 Delivery O2 Flow Rate FiO2 01/13/17 18:35 97.8 91 20 144/83 99 Non Rebreather 15.0 01/13/17 18:05 91 20 134/81 99 Non Rebreather 15.0 01/13/17 17:20 Non Rebreather 15 01/13/17 17:08 97.8 92 24 122/89 86 Physical Exam Vital signs: Reviewed. Patient oxygenation at 81% on room air. Const: No apparent distress, well-developed, well-nourished Head: Atraumatic Eyes: Normal Conjunctiva. Extraocular movements intact. ENT: Normal External Ears, Nose and Mouth. Neck: Full range of motion. ~ No meningismus. Resp: Rales in posterior velázquez to mid thoracic back. Cardio: Regular rhythm, mild tachycardia, no murmurs. Well-healing sternotomy scar without erythema or induration or fluctuance or purulence. Abd: Soft, non tender, non distended. Normal bowel sounds Skin: No petechiae or rashes Back: No midline or flank tenderness Ext: No cyanosis, or edema Neur: Awake and alert, oriented 4. Cranial nerves intact. No facial droop. Normal strength and sensation in all extremities. Coordination with finger to nose normal. Psych: Normal Mood and Affect Result Diagram: 01/13/175 01/13/175 Results 24 hrs Laboratory Tests Test 01/13/17 17:15 White Blood Count 6.710^3/ul Red Blood Count 3.2310^6/ul Hemoglobin 9.9g/dl Hematocrit 29.0% Mean Corpuscular Volume 89.8fl Mean Corpuscular Hemoglobin 30.7pg Mean Corpuscular Hemoglobin Concent 34.1g/dl Red Cell Distribution Width 14.8% Platelet Count 61235^3/UL Mean Platelet Volume 10.6fl Neutrophils % 71.9% Lymphocytes % 14.2% Monocytes % 10.8% Eosinophils % 2.2% Basophils % 0.6% Nucleated Red Blood Cells % 0.0/100WBC Neutrophils # 4.810^3/ul Lymphocytes # 1.010^3/ul Monocytes # 0.710^3/ul Eosinophils # 0.210^3/ul Basophils # 0.010^3/ul Nucleated Red Blood Cells # 0.010^3/ul Prothrombin Time 14.5Sec Prothrombin Time Ratio 1.1 INR International Normalized Ratio 1.13 Activated Partial Thromboplast Time 33.5Sec Sodium Level 135mmol/L Potassium Level 4.0mmol/L Chloride Level 101mmol/L Carbon Dioxide Level 25mmol/L Anion Gap 13 Blood Urea Nitrogen 16mg/dl Creatinine 1.04mg/dl Glucose Level 146mg/dl Calcium Level 9.4mg/dl Total Bilirubin 0.4mg/dl Direct Bilirubin 0.00mg/dl Indirect Bilirubin 0.4mg/dl Aspartate Amino Transf (AST/SGOT) 19IU/L Alanine Aminotransferase (ALT/SGPT) 19IU/L Alkaline Phosphatase 93IU/L Creatine Kinase 32IU/L Creatine Kinase Index 3.4 Creatinine Kinase MB (Mass) 1.08ng/ml Troponin I 0.055ng/ml B-Type Natriuretic Peptide 1500PG/ML Total Protein 7.2g/dl Albumin 3.8g/dl Globulin 3.40g/dl Albumin/Globulin Ratio 1.11 Procedures/MDM MDM The patient's presentation warrants further investigation. The patient's symptoms are consistent with a heart failure exacerbation, which will need to be worked up further. The patient has significant coronary artery disease requiring a recent 4 vessel CABG. I do not hear any new murmurs to suggest mitral regurgitation or papillary rupture. I do not hear a cardiac rub. An EKG will be reviewed to evaluate for any signs of ventricular aneurysm or Lina syndrome. The patient does not endorse any chest pain, but atypical chest pain is possible. The patient's symptoms are not consistent with aortic dissection. On oxygen, the patient's oxygenation and tachycardia improved significantly. Given the patient's significant cardiac pathology, I have lower suspicion for pulmonary embolism, but this may need to be considered if other etiologies are not fruitful. LABS The patient's blood work was obtained and reviewed. The patient's CBC shows no leukocytosis or left shift. The patient is afebrile and does not appear systemically ill. I do not suspect a systemic infection. The patient shows a normocytic anemia today, which is improved since his recent admission. The patient's platelet count is unremarkable. The patient's CMP shows no signs of emergent metabolic or electrolyte abnormality. The patient has normal renal and hepatic function testing. The patient's BNP is elevated to 1500, I am suspicious of heart failure. The patient's troponin is elevated at 0.055, which is a significant improvement from greater than 0.4 as the last result from his recent admission. EKG EKG read by me: Comparison: December 30, 2016 Rate/Rhythm: Regular rhythm, and his tachycardia at a rate of 101. Intervals: Normal [place] interval. QT interval appears to be at around 50% of the RR interval. The patient's QRS is mildly wide with findings consistent with a right bundle branch block. [place]: Leftward Impression: Nonspecific repolarization abnormalities including new T-wave flattening in the anterior leads of V2 and V3, but no evidence of acute ischemia or arrhythmia IMAGING CXR 1V Interpreted by me. Comparison: December 30, 2016 Soft Tissue: No acute abnormalities Bones: No acute abnormalities Mediastinum/Cardiac Silhouette: Sternotomy scars are present. The patient has cardiomegaly with prominent perihilar vasculature markings but unchanged from previous. Lungs: Resolution of the left-sided pleural effusion with interval increase of the right-sided pleural effusion. No significant changes with respect to pulmonary vasculature. No obvious changes in pulmonary edema TREATMENT/DISPOSITION The patient's symptoms are consistent with paroxysmal nocturnal dyspnea as well as findings that are concerning for heart failure. At minimum, the patient's hypoxia is concerning. The patient does not have oxygen at home. I do not see obvious evidence of an acute coronary syndrome at this time. The patient does not endorse any chest pain. The patient's EKG does not show signs of any ST elevation and I have lower suspicion for ventricular aneurysm or pericarditis or ACS. The patient's symptoms are not consistent with aortic dissection. Given the patient's resolution of heart rate, I have decreased suspicion for pulmonary embolism. At this time, I feel that the patient requires admission for further evaluation and management. The patient will be admitted to Panel in accordance with the patient's insurance. The patient was accepted by Dr. Samson at 1855PM on January 13, 2017 to telemetry. Departure Diagnosis: Primary Impression: Hypoxia Additional Impressions: Dyspnea Dyspnea type: shortness of breath Qualified Code: R06.02 - Shortness of breath PND (paroxysmal nocturnal dyspnea) CHF (congestive heart failure) Congestive heart failure type: unspecified congestive heart failure type Congestive heart failure chronicity: unspecified congestive heart failure chronicity Qualified Code: I50.9 - Congestive heart failure, unspecified congestive heart failure chronicity, unspecified congestive heart failure type Elevated troponin I level Condition: Serious AMBER MUNOZ MD Jan 13, 2017 17:13
--- NOTE | 2017-01-13 18:43 | RADRPT ---
PROCEDURE: XR Chest. CLINICAL INDICATION: Chest pain. TECHNIQUE: Single frontal chest x-ray. COMPARISON: 12/30/2016 FINDINGS: Patient is status post sternotomy. Heart is enlarged.. There is no congestive heart failure.. There is increased right pleural effusion with associated basilar atelectasis/infiltrate. There is an unc hanged small left pleural effusion with associated atelectasis. There is no pneumothorax. The osseo us structures are unremarkable. IMPRESSION: No CHF. Increased right pleural effusion with atelectasis/infiltrate. Unchanged small left pleural e ffusion with atelectasis. RPTAT: HMVK .Cleve Theodore MD, MD Date Time Electronically viewed and signed by .Cleve Theodore MD, on 01/13/2017 18:43 .K/
[2017-01-13] MEDS ORDERED: ONDANSETRON 4 MG INJ IV PRN ×2 (19:00→21:00)
[2017-01-13] MEDS ORDERED: ACETAMINOPHEN 325 MG TAB PO PRN (19:00)
[2017-01-13] MEDS ORDERED: morphine 2 MG INJ IV PRN (21:00)
[2017-01-13] MEDS ORDERED: NACL 0.9% 3 ML SYG IV SCH (21:00)
[2017-01-13] MEDS ORDERED: NITROGLYCERIN (SL) 0.4 MG TAB SL PRN (21:00)
[2017-01-13 21:03] VITALS: TEMP 97.8
[2017-01-13] MEDS ORDERED: SOD CHLORIDE 0.9% 100 ML ONE (21:36)
[2017-01-13] MEDS ORDERED: IOHEXOL 300MG/ML 150 ML BTL ONE (21:36)
[2017-01-13 21:59] VITALS: PULSE 95
[2017-01-13 22:00] VITALS: BP 167/77; PULSE 96; RESP 20; Ht 165.1 cm; Wt 85.0 kg
--- NOTE | 2017-01-13 22:21 | RADRPT ---
PROCEDURE: CTA chest pulmonary angiography. CLINICAL INDICATION: Hypoxia. TECHNIQUE: CT angiography of the chest was performed after the uneventful intravenous administratio n of 100 cc of Omnipaque 350. Coronal and sagittal reformations were performed. 3-D/multiplanar re formations were performed by the technologist and an independent workstation. The total exam CTDI = 7.04, 70.42, 18.2 mGy and the DLP equals 733.06 mGy-cm. One or more of the following dose reduction techniques were used: - Automated exposure control. - Adjustment of the mA and/or kV according to patient size. - Use of iterative reconstruction technique. COMPARISON: Chest x-ray dated 01/13/[address] dated 12/20/2016. FINDINGS: Pulmonary angiogram: There are extensive bilateral emboli extending from the distal main pulmonary artery into the right and left main pulmonary artery and into the segmental and subsegmental branche s throughout both lungs. The main pulmonary artery is normal in caliber and there is no evidence of right heart strain. Lungs, pleura, airways, and thoracic inlet: There are moderate right and small left pleural effusio ns. There is dense consolidation in the right lower lobe, largely related to compressive atelectasis . There is ground-glass opacity within the peripheral dependent left upper lobe, which may reflect e brianda infarct. There is no pneumothorax. The tracheobronchial tree is patent and normal in course an d caliber. Cardiovascular system, mediastinum, and lymphatics: The heart is normal in size and there is a trace pericardial effusion. There has been prior median sternotomy and CABG. There are multivessel oliver ry artery calcifications. There are atherosclerotic changes of the aorta, which is nonaneurysmal. Th ere is no axillary, hilar, or mediastinal adenopathy. There is a fat containing left Bochdalek herni a. Visualized upper abdomen: The visualized upper abdomen is unremarkable. Musculoskeletal system and soft tissues: There is moderate to severe multilevel degenerative enthes opathy. There are no concerning osseous lesions. There is edema within the ventral chest subcutaneou s tissues. IMPRESSION: 1. Positive for PE with extensive bilateral pulmonary emboli involving the distal main pulmonary ar stefany, right and left pulmonary artery, and the segmental and subsegmental branches throughout both l ungs. No evidence of right heart strain. 2. Moderate right and small left effusions with dense consolidation in the right lower lobe, likely secondary to compressive atelectasis. Superimposed pneumonia is not excluded. 3. Peripheral ground-glass opacity in the posterior left upper lobe, which may reflect early pulmon mercedes infarct. 4. Multivessel coronary artery calcifications and atherosclerotic changes of the aorta. 5. Trace pericardial effusion. CRITICAL RESULTS: These findings discussed with the patient's nurse Tulio Sue at 2216 hours on 03/15/2016. RPTAT: HLBP .Damion Adkins MD, MD Date Time Electronically viewed and signed by .Damion Adkins MD, on 01/13/2017 22:20 .P/
[2017-01-13] MEDS ORDERED: HEPARIN 1000 UNITS/ML 10 ML INJ IV ONE (22:30)
[2017-01-13] MEDS ORDERED: HEPARIN 25000 UNITS/250 ML 250 ML IV SCH (22:30)
[2017-01-13] MEDS ORDERED: GLUCAGON 1 MG INJ IM PRN (23:00)
[2017-01-13] MEDS ORDERED: DEXTROSE 50% 50 ML SYRINGE IV PRN ×2 (23:00)
[2017-01-13] MEDS ORDERED: GLUCOSE GEL 15 GRAM TUBE PO PRN ×2 (23:00)
[2017-01-13] MEDS ORDERED: GLUCOSE GEL 15 GRAM TUBE BUCCAL PRN (23:00)
[2017-01-13 23:50] VITALS: PULSE 115
[2017-01-14] VITALS (120 sets, daily range): BP systolic 53–171; BP diastolic 20–106; PULSE 41–153; RESP 13–70
[2017-01-14] MEDS ORDERED: ETOMIDATE 20 MG INJ ONE
[2017-01-14] MEDS ORDERED: SUCCINYLCHOLINE CHLORIDE 100 MG/5 ML SYG IV ONE
[2017-01-14] MEDS ORDERED: LORAZEPAM 2 MG INJ ONE (00:04)
[2017-01-14] MEDS ORDERED: FAMOTIDINE 20 MG INJ IV ONE (00:07)
[2017-01-14] MEDS ORDERED: DIPHENHYDRAMINE 50 MG INJ IV ONE (00:08)
[2017-01-14] MEDS ORDERED: DIPHENHYDRAMINE 50 MG INJ ONE (00:19)
[2017-01-14] MEDS ORDERED: METHYLPREDNISOLONE 125 MG INJ ONE (00:19)
[2017-01-14] MEDS ORDERED: METHYLPREDNISOLONE 125 MG INJ IV ONE (00:30)
[2017-01-14] MEDS ORDERED: EPINEPHrine 0.1 MG/ML SYG ONE ×4 (00:40→01:28)
[2017-01-14] MEDS ORDERED: NORepinephrine 8MG/250 ML (PMX 250 ML ONE (00:54)
[2017-01-14] MEDS ORDERED: ALTEPLASE 100 MG IV SCH (01:00)
[2017-01-14] MEDS ORDERED: NORepinephrine 8MG/250 ML (PMX 250 ML IV SCH ×2 (01:00→07:30)
[2017-01-14] MEDS ORDERED: SOD CHLORIDE 0.9% 1,000 ML IV ONE ×3 (01:00→08:30)
--- NOTE | 2017-01-14 01:15 | EN ---
Date/Time of Note Date/Time of Note DATE: 01/14/17 TIME: 01:11 ER Progress Note Consultation note - rapid response S: This is a 61 yo male with a PMH of a recent 4 vessel CABG presenting with shortness of breath, initially admitted to telemetry with suspicion of heart failure, ultimately diagnosed with a PE. I was called by the hospitalist for possible intubation given acute worsening of his respiratory status. At time of admission, the patient was on a facemask, but his dyspnea had improved. He was not tachycardic. He was not hypotensive. He did not endorse any pleuritic or chest pain. His only complaint had been his dyspnea. His family reportedly arrived shortly after admission and had felt that he had improved on oxygen as well. The patient had a CTA chest performed while on the floor, at which point his PE was discovered. The patient was given a bolus of heparin and an infusion was to be initiated. However, a few minutes after the heparin bolus, the patient 's respiratory status acutely started to decompensate. The patient has had heparin in the past, so it is unclear if he had a reaction to this or decomensated 2/2 to his pathology from his PE. A rapid response was called at this time, at which point the hospitalist called me to the bedside. O: Vitals: The patient was hypoxic, oxygenating in the 70s despite being on a nonrebreather. He was tachycardic. His blood pressure was normal, with a systolic in the 120s. Gen: Patient was in severe respiratory distress, diaphoretic HEENT: Oropharynx still patent, no erythema, no edema, moist mucous membranes Card: Heart was tachycardic, sounds regular, radial pulses present and symmetric bilaterally Pulm: Patient was tachypneic, rales still present bibasilarly, no wheezing Neuro: A&Ox4, No focal deficits A: Massive pulmonary embolism, cardiac arrest, significant coronary artery disease status post recent CABG. I believe his declining respiratory status to be related to his underlying pathology of PE with severe CAD sp 3 vessel CABG several weeks ago. While right heart strain was not evident, I am concerned of strain on the heart from the PE relating to a possible recurrent STEMI. I am also concerned of progression of the PE itself leading to impending respiratory failure and hemodynamic compromise. P: Records reviewed. Despite the large bilateral PE, the patient showed no evidence right heart strain. The patient's troponin was elevated, but it was the lowest that it had been since his previous admission. He BNP had also improved but was still elevated. The patient's blood pressure had been stable, but his respiratory status continued to decline. The risks and benefits of intubation were discussed with the patient and his family, and the decision was made to proceed for airway protection and more control over improving his oxygenation. Endotracheal Intubation Performed by me: Pre assessment performed. Pre-oxygenation performed with 100% oxygen via nasal cannula and BVM RSI: Performed w/o complication or hypoxic events. Medications as ordered. Blade: Mac 4 ET Tube: 7.5 Depth: 26 cm at the lip Intubation confirmed by colorimetric CO2, equal breath sounds, quiet over the stomach. CXR FINDINGS: Interval placement of an ETT tube with tip terminating 3.3 cm above the milo. Cardiomegaly with median sternotomy changes are again seen. Moderately large right and small left-sided pleural effusions with right lower lobe consolidation compressive atelectasis is present. No evidence of a pneumothorax. IMPRESSION: 1. Endotracheal tube placement with tip terminating 3.3 cm above the milo. 2. Moderately large right and small left-sided pleural effusions with right lower lobe compressive atelectasis or consolidation. 3. Cardiomegaly . Electronically viewed and signed by Physician Jose Angel on 01/14/2017 02 :23 Cardiac Arrest Unfortunately shortly after the intubation, the patient started to become bradycardic and went into PEA arrest. Please see the Code sheet for all details. ACLS protocol was initiated. The CPR was monitored and maintained throughout the code. The patient required multiple rounds of epinephrine. His rhythm changed from bradycardia PEA to asystole to Coarse V fib. He was cardioverted 2-3 times throughout the code. The patient did have ROSC several times. Unfortunately he devolved into PEA multiple times. The patient was initiated on a levophed drip and the decision was also made to start TPA. He was given a bolus and started on a drip. The patient was coded for over an hour prior to sustaining ROSC. A bedside ultrasound was performed to evaluate the heart during the code. Bedside Cardiac US Performed by me. The patient did actually have a pump with each bradycardic beat, but the heart was globally hypokinetic. Small pericardial effusion present RV not well visualized given constraints of the machine and the situation No obvious tamponade physiology The patient required central line placement. The left femoral central line was placed without ultrasound guidance as the telemetry unit did not have one available at the time and it was required emergently. The right femoral central line was placed under ultrasound guidance. Central Line Placement Performed by me. Patient consented, sterilely draped, full prep, glove, mask, time out performed. Anesthesia: none Location: left femoral line Device: Multiple lumen Technique: Radial pulse palpable with each compression. Needle aimed medial to the femoral arterial pulse. Dark blood returned. No pulstile flow from the needle. Seldinger technique utlized. Secured with suture biopatch placed. Results: Venous return from all ports with easy saline flush. No complications. Guide wire retrieved and disposed of. XR ordered and will be reviewed by the hospitalist. Central Line Placement Performed by me: Patient consented, sterilely draped, full prep, glove, mask, time out performed. Anesthesia: none Location: Right femoral vein Device: Multiple lumen Technique: Seldinger technique. Secured with suture. Results: Venous return from all ports with easy saline flush. No complications. Guide wire retrieved and disposed of. XR ordered and will be reviewed by the hospitalist. ED Ultrasound: Central line placed by me using concurrent ultrasound guidance. Real time image archived in the medical record confirms vascular anatomy. After transfer to the ICU, Dr. Samson and I discussed the severity of the situation with the family present. Good CPR and early intubation allowed for perceived adequate oxygenation to the brain, but the ventilatory status of the patient is poor given his pulmonary status with the PE. Neurologic status will need to be serially assessed. The patient's cardiopulmonary status will also need to be closely monitored in the ICU. Unfortunately the patient's initial symptoms today can be expected after open heart surgery related to CAD. In fact , he had be evaluated last by his cardiac surgeon who felt that he was on the right track. While the patient had endorsed mild shortness of breath prior to that office visit, his symptoms had gotten progressively worse after. He unfortunately started to show worsening symptoms after his last doctor's visit. After discussion with the family, it is unclear at this time if he had actually been taking his Xarelto as had been prescribed. The patient may benefit from transfer to a facility with a higher level of care if he becomes stable for this. Further treatment, interventions and review of tests will be deferred to the primary team. CRITICAL CARE NOTE Time: 75 minutes excluding all billable procedures. Treatments/Evaluations: Evaluation of the patient's medical record including previous records & current laboratory/imaging studies, close monitoring, potential interventions if hemodynamically unstable or cardiopulmonary decline or neurologic decline, maintaining tight fluid balance, any discussions with the family regarding the patient's status and prognosis. AMBER MUNOZ MD Jan 14, 2017 01:15
[2017-01-14] MEDS ORDERED: NA BICARBONATE 8.4% 50 ML SYG IV STA ×5 (01:22→23:44)
[2017-01-14] MEDS ORDERED: EPINEPHRINE 4 MG in NS 250 ML IV SCH (01:30)
[2017-01-14] MEDS: SODIUM BICARBONATE (IV ADD) 150 MEQ in DEXTROSE 5% 1,000 ML IV SCH ×4 (01:31→23:46)
[2017-01-14] MEDS ORDERED: ACCU-CHEK XX SCH ×2 (02:00)
--- NOTE | 2017-01-14 02:23 | RADRPT ---
PROCEDURE: XR Chest. CLINICAL INDICATION: intubate TECHNIQUE: Single portable view of the chest was obtained COMPARISON: 01/13/2017. FINDINGS: Interval placement of an ETT tube with tip terminating 3.3 cm above the milo. Cardiomegaly with me ronald sternotomy changes are again seen. Moderately large right and small left-sided pleural effusion s with right lower lobe consolidation compressive atelectasis is present. No evidence of a pneumotho rax. IMPRESSION: 1. Endotracheal tube placement with tip terminating 3.3 cm above the imlo. 2. Moderately large right and small left-sided pleural effusions with right lower lobe compressive atelectasis or consolidation. 3. Cardiomegaly . RPTAT: HRSR Physician Jose Angel Date Time Electronically viewed and signed by Physician Jose Angel on 01/14/2017 02:23 RR/
--- NOTE | 2017-01-14 02:23 | RADRPT ---
PROCEDURE: XR Chest. CLINICAL INDICATION: intubate TECHNIQUE: Single portable view of the chest was obtained COMPARISON: 01/13/2017. FINDINGS: Interval placement of an ETT tube with tip terminating 3.3 cm above the milo. Cardiomegaly with me ronald sternotomy changes are again seen. Moderately large right and small left-sided pleural effusion s with right lower lobe consolidation compressive atelectasis is present. No evidence of a pneumotho rax. IMPRESSION: 1. Endotracheal tube placement with tip terminating 3.3 cm above the milo. 2. Moderately large right and small left-sided pleural effusions with right lower lobe compressive atelectasis or consolidation. 3. Cardiomegaly . RPTAT: HRSR Physician Jose Angel Date Time Electronically viewed and signed by Physician Jose Angel on 01/14/2017 02:23 RR/
[2017-01-14] MEDS ORDERED: PROPOFOL 100 ML ONE (03:32)
[2017-01-14] MEDS: PROPOFOL 100 ML IV SCH ×2 (04:24→16:00)
[2017-01-14] MEDS ORDERED: HEPARIN 1000 UNITS/ML 10 ML INJ IV PRN ×2 (04:30)
[2017-01-14] MEDS ORDERED: INSULIN ASPART [NOVOLOG] 3 ML PEN SC SCH ×2 (05:00→07:35)
[2017-01-14] MEDS ORDERED: Insulin NOVOLOG SS MILD Algorithm (NPO/TPN/ENTERAL FEEDS) SC SCH (05:00)
--- NOTE | 2017-01-14 05:52 | HP ---
Date/Time of Note Date/Time of Note DATE: 01/14/17 TIME: 05:52 Assessment/Plan VTE Prophylaxis VTE Prophylaxis Intervention: contraindicated Lines/Catheters IV Catheter Type (from Nrs): Central Line Central line still needed: Yes Urinary Cath still in place: Yes Reason Cath still needed: other (indicate) (Clinical illness) Assessment/Plan Chief Complaint/Hosp Course Opened in error, please disregard. Problems: Assessment/Plan Opened in error, please disregard HPI/ROS Admit Date/Time Admit Date/Time Jan 13, 2017 at 18:54 Hx of Present Illness Open and air PMH/Family/Social Past Surgical History Past Surgical Hx: no surgical history Social History Smoking Status: Smoker,current status unk Exam/Review of Systems Vital Signs Vitals Vital Signs Date Time Temp Pulse Resp B/P Pulse Ox O2 Delivery O2 Flow Rate FiO2 01/14/17 05:18 99 30 100 70 01/14/17 05:15 102/65 01/14/17 05:00 Mechanical Ventilator 01/14/17 04:00 98.0 01/13/17 22:00 15.0 Intake and Output 01/13/17 01/13/17 01/14/17 15:00 23:00 07:00 Intake Total 1931.425 ml Balance 1931.425 ml Labs Result Diagram: 01/14/17 0445 01/14/17 0445 Medications Medications Current Medications Ondansetron HCl (Zofran Inj) 4 mg Q6H PRN IV NAUSEA AND/OR VOMITING; Start 01/13/17 at 21:00 Nitroglycerin (Nitroglycerin (Sl Tab) 0.4 Mg) 1 tab Q5M PRN SL CHEST PAIN; Start 01/13/17 at 21:00 Morphine Sulfate (morphine) 2 mg Q4H PRN IV PAIN LEVEL 7-10; Start 01/13/17 at 21:00 Amiodarone HCl (Cordarone) 200 mg DAILY PO ; Start 01/14/17 at 09:00 Aspirin (Halfprin) 81 mg DAILY PO ; Start 01/14/17 at 09:00 Atorvastatin Calcium (Lipitor) 40 mg HS PO ; Start 01/14/17 at 21:00 Insulin Glargine (Lantus) 40 unit QHS SC ; Start 01/14/17 at 21:00 Metoprolol Tartrate (Lopressor) 12.5 mg BID PO ; Start 01/14/17 at 09:00 Paroxetine HCl (Paxil) 20 mg DAILY PO ; Start 01/14/17 at 09:00 Diagnostic Test (Pha) (Accu-Chek) 1 ea 02 XX Last administered on 01/14/17 02: 00; Admin Dose 1 EA; Start 01/14/17 at 02:00 Miscellaneous Information 1 ea NOTE XX ; Start 01/13/17 at 23:00 Glucose (Glutose) 15 gm Q15M PRN PO DECREASED GLUCOSE; Start 01/13/17 at 23:00 Glucose (Glutose) 22.5 gm Q15M PRN PO DECREASED GLUCOSE; Start 01/13/17 at 23: 00 Dextrose (D50w Syringe) 25 ml Q15M PRN IV DECREASED GLUCOSE; Start 01/13/17 at 23:00 Dextrose (D50w Syringe) 50 ml Q15M PRN IV DECREASED GLUCOSE; Start 01/13/17 at 23:00 Glucagon (Glucagen) 1 mg Q15M PRN IM DECREASED GLUCOSE; Start 01/13/17 at 23:00 Glucose 15 gm 15 gm Q15M PRN BUCCAL DECREASED GLUCOSE; Start 01/13/17 at 23:00 Norepinephrine 250 ml @ 1.875 mls/ hr TITRATE IV Last administered on 01:35; Admin Dose 56.25 MLS/HR; Start 01/14/17 at 01:00; Stop 01/14/17 at 07:00 Epinephrine 4 mg/ Sodium Chloride 250 ml @ 3.75 mls/hr TITRATE IV ; Start 01/14 at 01:30 Sodium Bicarbonate 150 meq/Dextrose 1,150 ml @ 150 mls/hr Q7H40M IV Last administered on 01/14/17 01:31; Admin Dose 150 MLS/HR; Start 01/14/17 at 02:00 Dobutamine HCl/ Dextrose 250 ml @ 12.75 mls/ hr TITRATE IV ; Start 01/14/17 at 02:00 Phenylephrine HCl (Kali-Syneph) 250 ml @ 75 mls/hr TITRATE IV ; Start 01/14/17 at 01:30 Insulin Aspart (Adult SC Insulin - Mild Algorithm)... Q4 SC ; Start 01/14/17 at 05:00 Propofol 100 ml @ 2.55 mls/hr Q12H IV Last administered on 01/14/17t 04:24; Admin Dose 7.65 MLS/HR; Start 01/14/17 at 04:00 Sodium Chloride (NS) 1,000 ml @ 1,000 mls/hr Q1H ONCE IV ; Start 01/14/17 at 06 :00; Stop 01/14/17 at 06:59 AUDIE WHITE Jan 14, 2017 05:52
--- NOTE | 2017-01-14 06:02 | HP ---
Date/Time of Note Date/Time of Note DATE: 01/14/17 TIME: 05:54 Assessment/Plan VTE Prophylaxis VTE Prophylaxis Intervention: contraindicated (Patient received heparin and TPA ), other (Received TPA) Lines/Catheters IV C[facility] Type [facility]from [facility] Central Line Central line still needed: Yes (Pressor support) Urinary Cath still in place: Yes Reason Cath still needed: other (indicate) (Critical illness) Assessment/Plan Chief Complaint/Hosp Course This is a 51-year-old male who was initially admitted to the telemetry floor however he was subsequently transferred to the ICU: #1 ventilatory dependent respiratory failure #2 cardiac arrest secondary likely to underlying massive pulmonary embolus #3 Massive bilateral pulmonary embolism status post heparin bolus and TPA #4 Shock, likely cardiogenic #5 Acute kidney injury #6 history of coronary artery disease status post CABG #7 diabetes mellitus #8 history of myocardial infarction Plan: This is a very unfortunate 61-year-old gentleman who presented to the ED for hypoxia. Patient was found to have extensive bilateral PEs on CT of the chest. Patient was initiated on heparin drip. After the heparin patient went into respiratory distress and rapidly decompensated requiring intubation. After being intubated patient went into cardiac arrest and underwent an extensive approximately 45 minute round of ACLS. Patient also received TPA. At the current time patient is in the ICU. His pre-cardiac arrest pH was 7.4 with an O2 of 45 and a CO2 of 29. Post cardiac arrest patient's pH was 6.85 with a CO2 of 63 and a PO2 of 102. then adjustments were made vent adjustments were made , patient was initiated on bicarb drip. Patient was given levo fed for pressure support and also dobutamine was added for inotropic effect. Will obtain stat lactic acid level and an ABG in 1 hour. Will continue very close monitoring. We will also will need to get a CT of the head without contrast however we will need to wait until patient is clinically stable. Please see the HPI for more extensive details regarding this patient's full hospital course as well as please see the ED physician documentation as well from the event of the CODE BLUE in the admission for full details. We will consult pulmonology, nephrology, cardiology, and consider neurology neurology and any other specialist as indicated in the a.m. we will also order a catracho panel. Of note patient's pupils after the cardiac arrest were dilated bilaterally. Family was also present at the bedside throughout the code and in the ICU. I had an extensive discussion with the patient along with the ED physician regarding the patient's clinical condition. At the current time the etiology is suspected to be the massive PE resulted in the cardiac arrest. I am unsure at this time if this was directly a cause of the heparin that we gave to the patient are not. I did explain to the family that the heparin is the course of treatment for pulmonary embolism. Patient also received TPA. As the patient acutely decompensated he was not a candidate for any sort of transfer to any higher level of care. At the current time we will continue management for the patient in the ICU. Will continue to update the family on patient's clinical condition. The family did understand the risks and benefits of the TPA and the concern for possible hemorrhage from this. Will obtain CAT scan of the head at the first opportune moment moment based on patient's clinical status being more stable. I did however tell the family that there is concern for for his brain function which may have suffered from this very extensive cardiac arrest. The patient's pupils at the current time are dilated bilaterally but we will continue to monitor this. Further treatment strategy will be implemented as per the clinical course Problems: HPI/ROS Admit Date/Time Admit Date/Time Jan 13, 2017 at 18:54 Hx of Present Illness CC: dyspnea The following history was obtained from the ED physician documentation as well as from the patient's family. When I was on my way to see the patient a rapid response was called and at the bedside the patient was in acute respiratory distress. Initially I will present the history of presentation based on ED physician documentation. The patient is a 61-year-old male with a past medical history of hypertension, hyperlipidemia, diabetes, cardiac arrhythmia on amiodarone, coronary artery disease status post four-vessel CABG on December 26, 2016, currently on aspirin and Xarelto, presenting with progressive worsening SOB over the last several days. He endorses paroxysmal nocturnal dyspnea, which he has been dealing with since he was discharged after his CABG. He states that he sleeps for only about an hour before waking up feeling very short of breath. He needs to sit on the side of the bed for 20 to 30 minutes before trying to go back to sleep. Over the last 3-4 days, however, his dyspnea has been getting worse. He endorses dyspnea on exertion now, and states that he can even brush his teeth without feeling short of breath. He could not walk down the hallway without losing his breath as well. He also started to feel very lightheaded today, and felt at one point that he was going to pass out. This was the primary reason why he called the paramedics. Upon senior administrative assistant arrival, the patient was oxygenating in the low to mid 80s on room air. He was placed on high flow NRBFM and transferred here for further evaluation. His symptoms have improved on oxygen. Prior to my arrival in the room while reviewing the patient's chart decision was made to also order a CTA of the chest stat. CT of the chest stat showed extensive PEs in the bilateral left and right pulmonary arteries, please see CTA report for further details. An order for heparin was ordered and the patient's nurse was notified to start this immediately. Upon my way to see the patient, a rapid response was called as the patient the patient was in severe respiratory distress blood pressure was 188 systolic and he was approximately 76-80% pulse oximetry on nonrebreather max. Stat ABG was ordered prior to this and the results were pending. Patient was severely diaphoretic. BiPAP was ordered however at the moment as I saw the patient in respiratory distress and he was not able to sit still is complaining of not being able to breathe the decision was made that it would be best to intubate the patient to help protect patient's airway and for his respiratory distress. In the meantime his ABG results did arrive with a pH of 7.4 and O2 of 40. The ER physician had arrived at that point point and he also was agreeable to intubate the patient. The family was also at the bedside and they were agreeable to this as well. Prior to intubatio patient's family stated that his current respiratory distress started occurring after he had received his bolus of heparin and he started getting in respiratory distress a few minutes after. Though there were no signs of swelling of the lips or of the tongue and there was no wheezing or stridor and no rash or any swelling noted the decision was made that we could treat initially as an anaphylactic reaction. Epinephrine, Benadryl, Pepcid were given. As there was no improvement was admitted decision to rapidly proceed to intubation. Patient was intubated and his oxygenation subsequently improved. Within a short period after the patient went into bradycardia and he lost his pulse. ACLS protocol was initiated. Multiple medications were given during this. Along with chest compressions. Please see ACLS report for duration and medications developed given during the CODE BLUE. Pulses were established during the code multiple times and that he arrested again. During the CODE BLUE decision was also made to initiate TPA for the extensive PE. TPA was administered. Once pulses were established patient was stable he was transferred to the ICU. Patient was initiated on a bicarb drip as well as Levophed for pressure support As well as dobutamine ROS This review of systems was during the rapid response prior to patient being intubated: const: Diaphoretic and respiratory distress Eyes : No pain discharge or redness or change in visual acuity ENT: No pain, sore throat, congestion, congestion, dysphagia or discharge Respiratory: Auditory distress, states that she can breathe Cardiovascular: No chest pain, palpitation, PND, or edema GI : no change in appetite, abdominal pain, nausea, vomiting, diarrhea, constipation, or change in the color his stool Genitourinary: No dysuria, hematuria, flank pain , discharge or CVA tenderness Musculoskeletal: No joint pain, back pain, neck pain, restricted range of motion in neck or joints Skin: No rash, bruising or hives Neuro: Patient alert and oriented 3, but he is anxious and in respiratory distress Endocrine: No polyuria, polydipsia, temperature intolerance Psych: No hallucination, depression, anxiety or suicidal ideation PMH/Family/Social Past Medical History DM, MS, HTN, HLD, possible history of proximal A. fib Past Surgical History CABG, left hand sx Family History Significant Family History: no pertinent family hx Social History Alcohol Use: none Smoking Status: Former smoker Drug Use: none Exam/Review of Systems Vital Signs Vitals Vital Signs Date Time Temp Pulse Resp B/P Pulse Ox O2 Delivery O2 Flow Rate FiO2 01/14/17 05:18 99 30 100 70 01/14/17 05:15 102/65 01/14/17 05:00 Mechanical Ventilator 01/14/17 04:00 98.0 01/13/17 22:00 15.0 Intake and Output 01/13/17 01/13/17 01/14/17 15:00 23:00 07:00 Intake Total 1931.425 ml Balance 1931.425 ml Exam Exam This physical exam was during the rapid response: General: She was in moderate respiratory distress when arrived at the bedside,, he was diaphoretic and he was stating that he cannot breathe. HEENT: Atraumatic, normocephalic. The pupils are equal, round and reactive. Extraocular motor are intact Neck: Supple with full range of motion. No rigidity or meningismus Chest: Nontender, surgical scar present from CABG Lungs: Patient is an severe respiratory distress, no wheezing on exam, mild crackles at the right base Heart: Regular rate rhythm Abdomen: Soft , nontender, nondistended , bowel sounds are present. No guarding no rebound tenderness , No masses or organomegaly. No costovertebral temporal angle mass Extremities: Normal to inspection, no edema no cyanosis Neurologic: Patient initially was awake and alert he was speaking stating that he could not breathe, he was alert and oriented 3. He was speaking to the family at the bedside. Of note during this time he was a rapid response with no seeing the patient, he was acutely short of breath and distress. Prior to this event ABG was ordered which showed a pH of 7.4 CO2 of Additional Comments PROCEDURE: CTA chest pulmonary angiography. CLINICAL INDICATION: Hypoxia. TECHNIQUE: CT angiography of the chest was performed after the uneventful intravenous administration of 100 cc of Omnipaque 350. Coronal and sagittal reformations were performed. 3-D/multiplanar reformations were performed by the technologist and an independent workstation. The total exam CTDI = 7.04, 70.42, 18.2 mGy and the DLP equals 733.06 mGy-cm. One or more of the following dose reduction techniques were used: - Automated exposure control. - Adjustment of the mA and/or kV according to patient size. - Use of iterative reconstruction technique. COMPARISON: Chest x-ray dated 01/13/[address] dated 12/20/2016. FINDINGS: Pulmonary angiogram: There are extensive bilateral emboli extending from the distal main pulmonary artery into the right and left main pulmonary artery and into the segmental and subsegmental branches throughout both lungs. The main pulmonary artery is normal in caliber and there is no evidence of right heart strain. Lungs, pleura, airways, and thoracic inlet: There are moderate right and small left pleural effusions. There is dense consolidation in the right lower lobe, largely related to compressive atelectasis. There is ground-glass opacity within the peripheral dependent left upper lobe, which may reflect early infarct. There is no pneumothorax. The tracheobronchial tree is patent and normal in course and caliber. Cardiovascular system, mediastinum, and lymphatics: The heart is normal in size and there is a trace pericardial effusion. There has been prior median sternotomy and CABG. There are multivessel coronary artery calcifications. There are atherosclerotic changes of the aorta, which is nonaneurysmal. There is no axillary, hilar, or mediastinal adenopathy. There is a fat containing left Bochdalek hernia. Visualized upper abdomen: The visualized upper abdomen is unremarkable. Musculoskeletal system and soft tissues: There is moderate to severe multilevel degenerative enthesopathy. There are no concerning osseous lesions. There is edema within the ventral chest subcutaneous tissues. IMPRESSION: 1. Positive for PE with extensive bilateral pulmonary emboli involving the distal main pulmonary artery, right and left pulmonary artery, and the segmental and subsegmental branches throughout both lungs. No evidence of right heart strain. 2. Moderate right and small left effusions with dense consolidation in the right lower lobe, likely secondary to compressive atelectasis. Superimposed pneumonia is not excluded. 3. Peripheral ground-glass opacity in the posterior left upper lobe, which may reflect early pulmonary infarct. 4. Multivessel coronary artery calcifications and atherosclerotic changes of the aorta. 5. Trace pericardial effusion. CRITICAL RESULTS: These findings discussed with the patient's nurse Tulio Sue at 2216 hours on 01/13/2017. RPTAT: HLBP .Damion Adkins MD, Date Time Electronically viewed and signed by .Damion Adkins MD, MD on 01/13/2017 22:20 .P/ CC: AUDIE WHITE Labs Result Diagram: 01/14/1744401/14/17444 Medications Medications Current Medications Ondansetron HCl (Zofran Inj) 4 mg Q6H PRN IV NAUSEA AND/OR VOMITING; Start 01/13/17 at 21:00 Nitroglycerin (Nitroglycerin (Sl Tab) 0.4 Mg) 1 tab Q5M PRN SL CHEST PAIN; Start 01/13/17 at 21:00 Morphine Sulfate (morphine) 2 mg Q4H PRN IV PAIN LEVEL 7-10; Start 01/13/17 at 21:00 Amiodarone HCl (Cordarone) 200 mg DAILY PO ; Start 01/14/17 at 09:00 Aspirin (Halfprin) 81 mg DAILY PO ; Start 01/14/17 at 09:00 Atorvastatin Calcium (Lipitor) 40 mg HS PO ; Start 01/14/17 at 21:00 Insulin Glargine (Lantus) 40 unit QHS SC ; Start 01/14/17 at 21:00 Metoprolol Tartrate (Lopressor) 12.5 mg BID PO ; Start 01/14/17 at 09:00 Paroxetine HCl (Paxil) 20 mg DAILY PO ; Start 01/14/17 at 09:00 Diagnostic Test (Pha) (Accu-Chek) 1 ea 02 XX Last administered on 01/14/17 02: 00; Admin Dose 1 EA; Start 01/14/17 at 02:00 Miscellaneous Information 1 ea NOTE XX ; Start 01/13/17 at 23:00 Glucose (Glutose) 15 gm Q15M PRN PO DECREASED GLUCOSE; Start 01/13/17 at 23:00 Glucose (Glutose) 22.5 gm Q15M PRN PO DECREASED GLUCOSE; Start 01/13/17 at 23: 00 Dextrose (D50w Syringe) 25 ml Q15M PRN IV DECREASED GLUCOSE; Start 01/13/17 at 23:00 Dextrose (D50w Syringe) 50 ml Q15M PRN IV DECREASED GLUCOSE; Start 01/13/17 at 23:00 Glucagon (Glucagen) 1 mg Q15M PRN IM DECREASED GLUCOSE; Start 01/13/17 at 23:00 Glucose 15 gm 15 gm Q15M PRN BUCCAL DECREASED GLUCOSE; Start 01/13/17 at 23:00 Norepinephrine 250 ml @ 1.875 mls/ hr TITRATE IV Last administered on 01:35; Admin Dose 56.25 MLS/HR; Start 01/14/17 at 01:00; Stop 01/14/17 at 07:00 Epinephrine 4 mg/ Sodium Chloride 250 ml @ 3.75 mls/hr TITRATE IV ; Start 01/14 at 01:30 Sodium Bicarbonate 150 meq/Dextrose 1,150 ml @ 150 mls/hr Q7H40M IV Last administered on 01/14/17 01:31; Admin Dose 150 MLS/HR; Start 01/14/17 at 02:00 Dobutamine HCl/ Dextrose 250 ml @ 12.75 mls/ hr TITRATE IV ; Start 01/14/17 at 02:00 Phenylephrine HCl (Kali-Syneph) 250 ml @ 75 mls/hr TITRATE IV ; Start 01/14/17 at 01:30 Insulin Aspart (Adult SC Insulin - Mild Algorithm)... Q4 SC ; Start 01/14/17 at 05:00 Propofol 100 ml @ 2.55 mls/hr Q12H IV Last administered on 01/14/17 04:24; Admin Dose 7.65 MLS/HR; Start 01/14/17 at 04:00 Sodium Chloride (NS) 1,000 ml @ 1,000 mls/hr Q1H ONCE IV ; Start 01/14/17 at 06 :00; Stop 01/14/17 at 06:59 AUDIE WHITE Jan 14, 2017 06:02
[2017-01-14] MEDS ORDERED: VANCOMYCIN IV PER PHARMACY XX SCH (06:30)
[2017-01-14] MEDS ORDERED: VANCOMYCIN 1.75 GM in NS 500 ML IVPB SCH (08:00)
[2017-01-14] MEDS ORDERED: NA BICARBONATE 8.4% 50 ML SYG IV ONE (08:30)
[2017-01-14] MEDS ORDERED: AMIODARONE 200 MG TAB PO SCH (09:00)
[2017-01-14] MEDS ORDERED: CEFEPIME 1GM/50 ML (PMX) 50 ML IVPB SCH (09:00)
[2017-01-14] MEDS ORDERED: PAROXETINE 20 MG TAB PO SCH (09:00)
[2017-01-14] MEDS: METOPROLOL 25 MG TAB PO SCH ×2 (09:00→21:00)
[2017-01-14] MEDS ORDERED: ASPIRIN (EC) 81 MG TAB PO SCH (09:00)
[2017-01-14] MEDS ORDERED: DEXTROSE 50% 50 ML SYRINGE IV PRN ×2 (10:00)
[2017-01-14] MEDS ORDERED: INSULIN HUMAN REGULAR 100 UNIT in SOD CHLORIDE 0.9% 99 ML IV SCH (10:00)
[2017-01-14] MEDS: ACCU-CHEK XX SCH ×15 (10:00→23:57)
[2017-01-14] MEDS: DOPamine-D5W 1.6 MG/ML 250 ML IV SCH ×4 (12:30→23:32)
--- NOTE | 2017-01-14 12:34 | EN ---
Date/Time of Note Date/Time of Note DATE: 01/14/17 TIME: 12:29 Event Note Medicine Medicine Event Note Patient went into PEA, requiring ACLS with 2 amps of NaHCO3 and epi IVP x 2. ROSC achieved after ~ 10 minutes. I had another lengthy discussion with members of the family explaining to them that continuation of chest compressions in patient who has now been coded 3 times is not in his best interest and would be futile as well as a violation of his dignity. They will discuss further and will provide us with a decision. In the meantime, he remains on epinephrine, levophed, dopamine, and NaHCO3 drips, as well as full ventilatory support. TYREE WALKER MD Jan 14, 2017 12:34
--- NOTE | 2017-01-14 13:59 | RADRPT ---
PROCEDURE: US Lower extremity Venous. CLINICAL INDICATION: Pulmonary embolism, evaluate for lower extremity DVT TECHNIQUE: Multiple sonographic images of the bilateral lower extremity deep venous system was obt ained utilizing grayscale, color-flow, compressive sonography and doppler imaging with augmentation. The images were reviewed on a PACS workstation. COMPARISON: None. FINDINGS: There is normal compressibility and flow within the bilateral common femoral, deep femoral, superfic ial femoral and popliteal veins. The deep veins the calf were incompletely visualized. IMPRESSION: No sonographic evidence for deep venous thrombosis in the bilateral lower extremities. Physician Pan Date Time Electronically viewed and signed by Physician Pan on 01/14/2017 13:59 ML/
[2017-01-14] MEDS: EPINEPHrine 4 MG in SOD CHLORIDE 0.9% 246 ML IV SCH ×2 (14:01→21:43)
--- NOTE | 2017-01-14 14:53 | CONS ---
DATE OF ADMISSION: 01/13/2017 DATE OF CONSULTATION: 01/14/2017 PRIMARY PHYSICIAN: Dr. Dante White. REASON FOR CONSULTATION: Status post cardiopulmonary arrest as a result of massive pulmonary emboli sm. HISTORY OF PRESENT ILLNESS: Briefly, this is a 61-year-old gentleman with a history of coronary art johnny disease, hypertension, hyperlipidemia, possible paroxysmal atrial fibrillation, who underwent co ronary artery bypass on 12/26/2016, per family, apparently he had been experiencing increasing dyspn ea over the last 3 to 4 days prior to admission. It appears that he had marked limitations with elliot n minimal activity. At this point, patient was brought into the emergency room where he underwent a n evaluation and was admitted to the [facility]. At this point, he underwent a CT pulmonary angiogram that was notable for a saddle pulmonary embolus originating in the main pulmonary artery with extension into the right and left PAs, as well as notable lobar and segmental PEs in both right and left branches of the pulmonary artery. At this point, the patient was started on heparin drip. It appears that immediately upon initiation of heparin drip, the patient experienced an acute decompensation with severe respiratory distress a nd thereafter, the patient was intubated for his respiratory distress. Subsequently, the patient lo st pulses and ACLS was initiated. It appears that he underwent resuscitative efforts for about an h our, during which time he intermittently required chest compressions. During the code blue, the dec ision was made to initiate tPA in light of his extensive clot burden and what at this point, was jony brianda evidence of a massive pulmonary embolism. He received full dose tPA and was transferred to the ICU. During this period, he required multiple pressors and had a second episode where he became br adycardic and lost pulses earlier this morning. At this point, he remains intubated on vasopressor support on mechanical ventilation. PAST MEDICAL HISTORY: Diabetes, IA, hypertension, hyperlipidemia. PAST SURGICAL HISTORY: Had a CABG 12/26/2016. SOCIAL HISTORY: Former smoker. No tobacco, alcohol, illicit drug use. ALLERGIES: NO KNOWN DRUG ALLERGIES. MEDICATIONS: Please see MAR. FAMILY HISTORY: Unable to obtain. REVIEW OF SYSTEMS: Unable to obtain. PHYSICAL EXAMINATION: VITAL SIGNS: Blood pressure is 115/60 supported on pressors. Heart rate is 96, oxygen saturation i s 100% on 100% FIO2 on mechanical ventilation. HEENT: ET tube is in place. Pupils are fixed and dilated. NECK: Supple. Jugular venous pressures are elevated. CARDIOVASCULAR: Regular, tachycardic, S1 and S2 with a prominent P2 component of second heart sound . CHEST: There are decreased breath sounds at the bases bilaterally. ABDOMEN: Soft, nontender. EXTREMITIES: There are diminished pulses in the right lower extremity, dorsalis pedis and posterior tibial, that are not palpable. NEUROLOGIC: He is flaccid. He is not overbreathing the vent. At this point, there is no evidence of a gag reflex. Pupils are fixed and dilated. LABORATORY DATA: WBC is 21, hemoglobin is 8.2, platelets are 159, lactic acid is 23.4, BUN is 20, c reatinine is 1.7. Troponin is 16, CK is 3170, AST is 1467, ALT is 601, last PTT is greater than 180 . IMPRESSION: 1. Status post cardiopulmonary arrest due to massive pulmonary embolism status post prolonged ACLS and likely a period of prolonged anoxia. 2. Massive pulmonary embolism status post tPA. 3. Concern for anoxic encephalopathy as a result of his cardiopulmonary arrest. 4. Severe lactic acidosis secondary to global hypoperfusion. 5. Acute renal failure, likely prerenal versus acute tubular necrosis secondary to his cardiopulmon mercedes arrest. 6. Status post coronary artery bypass graft. RECOMMENDATIONS: 1. I had a long discussion with all members the family and explained to them and tried to bring cla rity as to the etiology of Mr. Rosa's cardiopulmonary arrest and ensuing management. 2. At this point, my main concern is his neurological sequela and high concern for anoxic brain inj ury. Having said that, he is not a good candidate for induced hypothermia in view of the etiology o f his cardiac arrest, as well as the risks associated with hypothermia given his status after receiv ing lysis. 3. Would continue bicarbonate drip, given a component of renal failure associated acidosis, althoug h this can certainly make lactic acidosis, slightly worse. 4. Ventilator support with optimization with increasing minute ventilation to help combat the under lying severe metabolic acidosis. 5. Obtain a CT brain to ensure that there has been no hemorrhage associated with lysis. 6. We will continue vasopressor support to maintain mean arterial pressure greater or equal to 65 m mHg. 7. Would obtain lower extremity Dopplers and if positive, would consider an IVC filter in view of v johnny limited reserve and potential risk for recurrent cardiopulmonary arrest. 8. Will need to follow neurological status closely as his overall prognosis is very poor, although this is a bit too early to definitively determine his prognosis. Dictated By: TYREE WALKER MD NK/NTS Conf#: [id number] DID#: [id number] CC: MASOOD RAMOS MD; DANTE WHITE MD;*EndCC*
--- NOTE | 2017-01-14 14:57 | RADRPT ---
PROCEDURE: Renal US. CLINICAL INDICATION: Acute kidney injury. TECHNIQUE: Multiple sonographic images of the kidneys and urinary bladder were obtained. The imag es were reviewed on a PACS workstation. COMPARISON: No prior studies are available for comparison. FINDINGS: The right kidney measures 9.6 cm. The left kidney measures 12.7 cm. There is no renal mass. There is no hydronephrosis. There is a nonobstructing 0.7 cm calculus in the upper to mid right kidney. There is no other renal calculus. Renal parenchymal thickness is normal bilaterally. Both kidneys are hyperechoic consistent with medical renal disease. The perirenal regions are normal with no fluid collection or mass. There is a Swanson catheter in the urinary bladder. IMPRESSION: 1. Nonobstructing 0.7 cm calculus in the upper to mid right kidney. 2. No hydronephrosis. 3. Bilateral hyperechoic kidneys consistent with medical renal disease. 4. Swanson catheter in the bladder. 5. Otherwise unremarkable renal ultrasound. RPTAT: QQ .Juan Avalos MD, Date Time Electronically viewed and signed by .Juan Avalos MD, MD on 01/14/2017 14:56 .R/
--- NOTE | 2017-01-14 15:07 | CONS ---
DATE OF ADMISSION: 01/13/2017 DATE OF CONSULTATION: 01/14/2017 TYPE OF CONSULTATION: Nephrology. REASON FOR CONSULTATION: Acute kidney injury. REQUESTING PHYSICIAN: Dr. Samson HISTORY OF PRESENT ILLNESS: This is a 61-year-old male with a past medical history of coronary shade ry disease status post CABG, history of diabetes, who presented to [facility] Room for hypoxemia. The patient in the emergency room had a CT angio which showed evidence of bilateral PE. The patient was initiated on heparin drip after which the patient decompensated rapi dly requiring intubation. The patient underwent a cardiac arrest and was coded 45 minutes and also received tPA. The patient was intubated and transferred to the intensive care unit where he was not ed to be in shock. The patient while in intensive care unit, again coded, was placed on an epi drip and had a return of spontaneous circulation. The patient unfortunately has fixed and dilated pupil s. In terms of the patient's renal history, the patient, per family had no prior history of chronic kid ashley disease. On admission, the patient's creatinine was 1.04 mg/dL. It has increased to 2 mg/dL. The patient has minimal urinary output. There have been no reports of hemoptysis, hematemesis or he matochezia. PAST MEDICAL HISTORY: As stated above, history of coronary artery disease, diabetes. PAST SURGICAL HISTORY: Status post CABG. FAMILY HISTORY: Noncontributory. SOCIAL HISTORY: Does not drink, smoke or do drugs. MEDICATIONS: Have been reviewed. REVIEW OF SYSTEMS: Unable to do adequate review of systems as patient is intubated. Pertinent posi tives stated in HPI, otherwise negative. PHYSICAL EXAMINATION: VITAL SIGNS: Blood pressure 90/50, respirations 24, pulse 88, temperature 98.6. HEENT: Head is normocephalic. The patient's pupils are fixed and dilated, nonresponsive to light. NECK: Supple. HEART: Regular rate. LUNGS: Show diminished breath sounds at the base. ABDOMEN: Soft, nontender to palpation without rebound or guarding. EXTREMITIES: Negative for clubbing, cyanosis, no edema. DERMATOLOGIC: No rashes. MUSCULOSKELETAL: No joint effusions. NEUROLOGIC: The patient is obtunded. LABORATORY DATA: Sodium 144, potassium 5.0, BUN 28, creatinine 2.04. White count 21.4, hemoglobin 8.2, platelet count is 159. ASSESSMENT AND PLAN: This is a 61-year-old male who presents with: 1. Anuric acute kidney injury with previously normal baseline creatinine. Etiology of acute kidney injury is likely secondary to acute tubular necrosis due to ischemic hypoperfusion and shock. The patient is currently in injury phase of acute tubular necrosis as he is currently anuric. Plan at t his point is to check a UA with microanalysis, urine electrolytes, check renal ultrasound. Will mon itor renal function closely. If there is no significant improvement in renal function in the next 2 4 to 48 hours, the patient may need to be initiated on renal replacement therapy. 2. Mixed acid base disorder. The patient has a metabolic gap and non-gap acidosis secondary to acu te kidney injury and a respiratory acidosis. The patient's ABG shows pH 7.127, pCO2 of 44. The pat ient's pCO2 levels are inappropriately elevated for his level of acidemia. Plan at this point is to continue vent management. Consider increasing respiratory rate or tidal volume. Continue bicarbon ate drip and monitor closely. If the patient's acidemia cannot be appropriately controlled, we will consider renal replacement therapy. 3. Anemia. Monitor hemoglobin and hematocrit levels. 4. Mineral bone disorder. Monitor calcium and phosphorus levels. 5. Cardiogenic shock. The patient is currently on pressor support. We will continue. Underlying cause is likely due to pulmonary embolism. Will follow up with cardiology. Patient is status post tPA and heparin. 6. Extensive bilateral pulmonary embolism. The patient is status post heparin, status post tPA. C ontinue to monitor. 7. Ventilator dependent respiratory failure. Vent settings and ABGs reviewed. Continue to monitor . 8. Status post cardiac arrest, likely due to PE. Continue current treatment plan. Follow up with Cardiology. 9. Acute encephalopathy. Etiology is likely due to anoxic injury. Continue to monitor. Follow up CT scan of the head when the patient is stable. Thank you, Dr. Samson, for this interesting consult. It will be a pleasure to follow patient with you throughout the hospital course. Dictated By: CASANDRA KRAUSE DO NR/NTS Conf#: [id number] DID#: [id number]
--- NOTE | 2017-01-14 15:23 | CONS ---
DATE OF ADMISSION: 01/13/2017 DATE OF CONSULTATION: 01/14/2017 REASON FOR CONSULTATION: Acute PE in cardiogenic shock. HISTORY OF PRESENT ILLNESS: The patient initially came to the ER with worsening of shortness of herminio ath for the last few days and was stabilized with a nonrebreather mask with 15 liters of oxygen and saturating at 91%. Subsequently was transferred to telemetry. At around 10:15 p.m., the patient we nt into respiratory arrest and desaturated to 75% on 15 liters nonrebreather mask and rapid response team was called (code blue). The patient was coded and subsequently transferred to ICU for further monitoring. Meanwhile, the patient did receive a bolus of heparin and tPA for massive pulmonary em bolus and was intubated and subsequently transferred to ICU. The patient is released. The patient had a recent [place] and had a bypass surgery done a few weeks ago. PAST MEDICAL HISTORY: 1. Coronary artery disease, status post NJ, status post bypass surgery. 2. Diabetes mellitus. 3. Renal failure. 4. Respiratory failure. SOCIAL HISTORY: Unable to elicit. ALLERGIES: NONE. CURRENT MEDICATIONS: Prior to code include: 1. Norepinephrine. 2. Phenylephrine. 4. All p.o. medication has been held. REVIEW OF SYSTEMS: Unremarkable except that mentioned in the HPI. PHYSICAL EXAMINATION: VITAL SIGNS: Temperature is 97.6, heart rate 88, blood pressure 90/50, respiratory rate 24, saturat ing 100% on mechanical ventilator. GENERAL: The patient is intubated and sedated. HEENT: Pupils are dilated and nonreactive. CARDIOVASCULAR: Regular rate and rhythm. No murmur, rub or gallop. CHEST: Mechanical breath sounds heard bilaterally. ABDOMEN: Soft. Bowel sounds are present. EXTREMITIES: No pedal edema. DIAGNOSTIC DATA: Review of 12-lead EKG done 01/14/2017 at 3:38 a.m. shows sinus tachycardia with a right bundle branch block with Q-waves in lead II, III, aVF consistent with inferior wall NJ and pro longed QT intervals with nonspecific ST-T wave changes. CTA showed: 1. Extensive bilateral pulmonary emboli increase involving distal main pulmonary artery, right and left pulmonary artery and segmental and subsegmental branches. 2. Moderate right and small left pleural effusion with consolidation, trace pericardial effusion an d coronary artery calcification. Chest x-ray shows congestion with right pleural effusion and small left pleural effusion. LABORATORY DATA: WBC 21.4, hemoglobin 8.5, hematocrit 25.4 with a platelet of 159. Sodium 141, pot assium 5, chloride 99, CO2 14, BUN 20, creatinine is 2.04. Lactic acid 23.9, AST 1447, ALT 545, alk anayeli phosphatase 82. Troponin first set is 0.05. Second set is 0.89, third set is troponin is 16. 1. BNP 3460. ASSESSMENT AND PLAN: A 61-year-old gentleman with: 1. Massive pulmonary embolism. 2. Cardiogenic shock. 3. Acute coronary syndrome. 4. Acute renal failure. 5. Severe sepsis. 6. Pleural effusion. 7. Pneumonia. 8. Coronary artery disease, status post NJ, status post bypass surgery recently. 9. Dyslipidemia. 10. Hypertension. 11. Ventilator dependent respiratory failure. 12. Status post cardiac arrest. The patient is clinically and hemodynamically unstable. Pupils ar e dilated, nonreactive and hemodynamically supported with vasopressors. RECOMMENDATIONS: 1. EKG stat. 2. Echo stat. 3. Continue to support hemodynamically with vasopressors. 4. Continue ventilator support 5. Keep magnesium more than 2 and potassium more than 4. 6. Continue empiric antibiotics. 7. Continue heparin infusion. 8. Continue insulin drip. 9. Continue sedation. Further recommendation after review of the echocardiogram. Dictated By: HILLARY KIRKLAND MD SR/NTS Conf#: [id number] DID#: [id number]
--- NOTE | 2017-01-14 15:23 | CONS ---
DATE OF ADMISSION: 01/13/2017 DATE OF CONSULTATION: 01/14/2017 REASON FOR CONSULTATION: Acute PE in cardiogenic shock. HISTORY OF PRESENT ILLNESS: The patient initially came to the ER with worsening of shortness of herminio ath for the last few days and was stabilized with a nonrebreather mask with 15 liters of oxygen and saturating at 91%. Subsequently was transferred to telemetry. At around 10:15 p.m., the patient we nt into respiratory arrest and desaturated to 75% on 15 liters nonrebreather mask and rapid response team was called (code blue). The patient was coded and subsequently transferred to ICU for further monitoring. Meanwhile, the patient did receive a bolus of heparin and tPA for massive pulmonary em bolus and was intubated and subsequently transferred to ICU. The patient is released. The patient had a recent AR and had a bypass surgery done a few weeks ago. PAST MEDICAL HISTORY: 1. Coronary artery disease, status post AR, status post bypass surgery. 2. Diabetes mellitus. 3. Renal failure. 4. Respiratory failure. SOCIAL HISTORY: Unable to elicit. ALLERGIES: NONE. CURRENT MEDICATIONS: Prior to code include: 1. Norepinephrine. 2. Phenylephrine. 4. All p.o. medication has been held. REVIEW OF SYSTEMS: Unremarkable except that mentioned in the HPI. PHYSICAL EXAMINATION: VITAL SIGNS: Temperature is 97.6, heart rate 88, blood pressure 90/50, respiratory rate 24, saturat ing 100% on mechanical ventilator. GENERAL: The patient is intubated and sedated. HEENT: Pupils are dilated and nonreactive. CARDIOVASCULAR: Regular rate and rhythm. No murmur, rub or gallop. CHEST: Mechanical breath sounds heard bilaterally. ABDOMEN: Soft. Bowel sounds are present. EXTREMITIES: No pedal edema. DIAGNOSTIC DATA: Review of 12-lead EKG done 01/14/2017 at 3:38 a.m. shows sinus tachycardia with a right bundle branch block with Q-waves in lead II, III, aVF consistent with inferior wall AR and pro longed QT intervals with nonspecific ST-T wave changes. CTA showed: 1. Extensive bilateral pulmonary emboli increase involving distal main pulmonary artery, right and left pulmonary artery and segmental and subsegmental branches. 2. Moderate right and small left pleural effusion with consolidation, trace pericardial effusion an d coronary artery calcification. Chest x-ray shows congestion with right pleural effusion and small left pleural effusion. LABORATORY DATA: WBC 21.4, hemoglobin 8.5, hematocrit 25.4 with a platelet of 159. Sodium 141, pot assium 5, chloride 99, CO2 14, BUN 20, creatinine is 2.04. Lactic acid 23.9, AST 1447, ALT 545, alk anayeli phosphatase 82. Troponin first set is 0.05. Second set is 0.89, third set is troponin is 16. 1. BNP 3460. ASSESSMENT AND PLAN: A 61-year-old gentleman with: 1. Massive pulmonary embolism. 2. Cardiogenic shock. 3. Acute coronary syndrome. 4. Acute renal failure. 5. Severe sepsis. 6. Pleural effusion. 7. Pneumonia. 8. Coronary artery disease, status post AR, status post bypass surgery recently. 9. Dyslipidemia. 10. Hypertension. 11. Ventilator dependent respiratory failure. 12. Status post cardiac arrest. The patient is clinically and hemodynamically unstable. Pupils ar e dilated, nonreactive and hemodynamically supported with vasopressors. RECOMMENDATIONS: 1. EKG stat. 2. Echo stat. 3. Continue to support hemodynamically with vasopressors. 4. Continue ventilator support 5. Keep magnesium more than 2 and potassium more than 4. 6. Continue empiric antibiotics. 7. Continue heparin infusion. 8. Continue insulin drip. 9. Continue sedation. Further recommendation after review of the echocardiogram. Dictated By: HILLARY KIRKLAND MD SR/NTS Conf#: [id number] DID#: [id number]
--- NOTE | 2017-01-14 15:23 | CONS ---
DATE OF ADMISSION: 01/13/2017 DATE OF CONSULTATION: 01/14/2017 REASON FOR CONSULTATION: Acute PE in cardiogenic shock. HISTORY OF PRESENT ILLNESS: The patient initially came to the ER with worsening of shortness of herminio ath for the last few days and was stabilized with a nonrebreather mask with 15 liters of oxygen and saturating at 91%. Subsequently was transferred to telemetry. At around 10:15 p.m., the patient we nt into respiratory arrest and desaturated to 75% on 15 liters nonrebreather mask and rapid response team was called (code blue). The patient was coded and subsequently transferred to ICU for further monitoring. Meanwhile, the patient did receive a bolus of heparin and tPA for massive pulmonary em bolus and was intubated and subsequently transferred to ICU. The patient is released. The patient had a recent [place] and had a bypass surgery done a few weeks ago. PAST MEDICAL HISTORY: 1. Coronary artery disease, status post [place], status post bypass surgery. 2. Diabetes mellitus. 3. Renal failure. 4. Respiratory failure. SOCIAL HISTORY: Unable to elicit. ALLERGIES: NONE. CURRENT MEDICATIONS: Prior to code include: 1. Norepinephrine. 2. Phenylephrine. 4. All p.o. medication has been held. REVIEW OF SYSTEMS: Unremarkable except that mentioned in the HPI. PHYSICAL EXAMINATION: VITAL SIGNS: Temperature is 97.6, heart rate 88, blood pressure 90/50, respiratory rate 24, saturat ing 100% on mechanical ventilator. GENERAL: The patient is intubated and sedated. HEENT: Pupils are dilated and nonreactive. CARDIOVASCULAR: Regular rate and rhythm. No murmur, rub or gallop. CHEST: Mechanical breath sounds heard bilaterally. ABDOMEN: Soft. Bowel sounds are present. EXTREMITIES: No pedal edema. DIAGNOSTIC DATA: Review of 12-lead EKG done 01/14/2017 at 3:38 a.m. shows sinus tachycardia with a right bundle branch block with Q-waves in lead II, III, aVF consistent with inferior wall MO and pro longed QT intervals with nonspecific ST-T wave changes. CTA showed: 1. Extensive bilateral pulmonary emboli increase involving distal main pulmonary artery, right and left pulmonary artery and segmental and subsegmental branches. 2. Moderate right and small left pleural effusion with consolidation, trace pericardial effusion an d coronary artery calcification. Chest x-ray shows congestion with right pleural effusion and small left pleural effusion. LABORATORY DATA: WBC 21.4, hemoglobin 8.5, hematocrit 25.4 with a platelet of 159. Sodium 141, pot assium 5, chloride 99, CO2 14, BUN 20, creatinine is 2.04. Lactic acid 23.9, AST 1447, ALT 545, alk anayeli phosphatase 82. Troponin first set is 0.05. Second set is 0.89, third set is troponin is 16. 1. BNP 3460. ASSESSMENT AND PLAN: A 61-year-old gentleman with: 1. Massive pulmonary embolism. 2. Cardiogenic shock. 3. Acute coronary syndrome. 4. Acute renal failure. 5. Severe sepsis. 6. Pleural effusion. 7. Pneumonia. 8. Coronary artery disease, status post [place], status post bypass surgery recently. 9. Dyslipidemia. 10. Hypertension. 11. Ventilator dependent respiratory failure. 12. Status post cardiac arrest. The patient is clinically and hemodynamically unstable. Pupils ar e dilated, nonreactive and hemodynamically supported with vasopressors. RECOMMENDATIONS: 1. EKG stat. 2. Echo stat. 3. Continue to support hemodynamically with vasopressors. 4. Continue ventilator support 5. Keep magnesium more than 2 and potassium more than 4. 6. Continue empiric antibiotics. 7. Continue heparin infusion. 8. Continue insulin drip. 9. Continue sedation. Further recommendation after review of the echocardiogram. Dictated By: HILLARY KIRKLAND MD SR/NTS Conf#: [id number] DID#: [id number]
--- NOTE | 2017-01-14 16:32 | RADRPT ---
Echocardiogram Report Patient Name: PERRY ZAVALETA Gender: Male Date: 1955 Study Date: 14-Jan-2017 Stave Bolt Equalizer: BAR Location: 108 Ref. Physician: AUDIE WHITE Quality: Good Procedures: Transthoracic echocardiogram with complete 2D, M-Mode, and doppler examination. Indications: Cardiac Arrest. 2D/M Mode Doppler Measurement Value Normal Ranges Measurement Value Normal Ranges AoR Diam MM 3.1 cm JUNIOR Vmax 2.7 cm2 LA/Ao MM 1.3 JUNIOR VTI 2.7 cm2 LA Dimen MM 4.1 cm AV Peak Luis Alfredo 1.3 m/sec LVIDd 2D 4.3 3.5 - 5.6 cm AV Peak PG 7.0 mmHg LVIDs 2D 3.0 2.1 - 4.1 cm LVOT Peak Luis Alfredo 1.1 m/sec LVPWd 2D 1.5 0.6 - 1.1 cm LVOT Peak PG 4.6 mmHg IVSd 2D 1.5 0.6 - 1.1 cm MV E Peak Luis Alfredo 0.6 m/sec EDV 2D 84.4 cm3 MV A Peak Luis Alfredo 0.4 m/sec ESV 2D 26.9 cm3 MV E/A 1.5 EF 2D 60.0 50.0 - 65.0 % MV Decel Time 235 msec LVOT Diam 2.1 cm MV Decel [place] 2 MV E/A 1.5 TR Peak Luis Alfredo 2.9 m/sec TR Peak PG 33.0 mmHg RVSP 41.0 mmHg RA Pressure 8.0 Findings Left Ventricle: Normal left ventricular systolic function. Normal left ventricular cavity size. Mild-Moderate concentric left ventricular hypertrophy. Ejection fraction is visually estimated at 50 %. Abnormal Diastolic Function. Right Ventricle: Normal right ventricular size. Left Atrium: There is mild enlargement of left atrium. Right Atrium: The right atrium is normal in size. Mitral Valve: Normal appearance of the mitral valve. Moderate posterior mitral leaflet calcification. Mild mitral annular calcification. Trace mitral regurgitation. Aortic Valve: Normal appearance of the aortic valve. No significant aortic stenosis or insufficiency. Tricuspid Valve: Normal appearance of the tricuspid valve. Estimated peak PA systolic pressure 41 mmHg. There is mild to moderate tricuspid regurgitation by color. Pulmonic Valve: Pulmonic valve not well visualized. Pericardium: Trivial pericardial effusion. Moderate right and small left pleural effusion seen. Aorta: Normal aortic root. IVC: Normal IVC with respiratory collapse visually, however patient on ventilator. Conclusions 1.Normal left ventricular systolic function. Normal left ventricular cavity size. Mild-Moderate concentric left ventricular hypertrophy. Ejection fraction is visually estimated at 50 %. Abnormal Diastolic Function. 2.Normal right ventricular size. Mildly reduced systolic function. 3.Normal appearance of the mitral valve. Moderate posterior mitral leaflet calcification. Mild mitral annular calcification. Trace mitral regurgitation. 4.Normal appearance of the aortic valve. No significant aortic stenosis or insufficiency. 5.Normal appearance of the tricuspid valve. Estimated peak PA systolic pressure 41 mmHg. There is mild to moderate tricuspid regurgitation by color. 6.Moderate Pulmonary Hypertension. 7.Trivial pericardial effusion. Moderate right and small left pleural effusion seen. 8.Ejection fraction estimated on Vasopressors. Electronically Signed By: Teodoro Luna 14-Jan-2017 16:31:50 -0800 Patient Name: PERRY ZAVALETA Study Date: 14-Jan-2017 [id number]
--- NOTE | 2017-01-14 16:32 | RADRPT ---
Echocardiogram Report Patient Name: PERRY ZAVALETA Gender: Male Date: 1955 Study Date: 14-Jan-2017 Transportation Engineer: BAR Location: 108 Ref. Physician: AUDIE WHITE Quality: Good Procedures: Transthoracic echocardiogram with complete 2D, M-Mode, and doppler examination. Indications: Cardiac Arrest. 2D/M Mode Doppler Measurement Value Normal Ranges Measurement Value Normal Ranges AoR Diam MM 3.1 cm JUNIOR Vmax 2.7 cm2 LA/Ao MM 1.3 JUNIOR VTI 2.7 cm2 LA Dimen MM 4.1 cm AV Peak Luis Alfredo 1.3 m/sec LVIDd 2D 4.3 3.5 - 5.6 cm AV Peak PG 7.0 mmHg LVIDs 2D 3.0 2.1 - 4.1 cm LVOT Peak Luis Alfredo 1.1 m/sec LVPWd 2D 1.5 0.6 - 1.1 cm LVOT Peak PG 4.6 mmHg IVSd 2D 1.5 0.6 - 1.1 cm MV E Peak Luis Alfredo 0.6 m/sec EDV 2D 84.4 cm3 MV A Peak Luis Alfredo 0.4 m/sec ESV 2D 26.9 cm3 MV E/A 1.5 EF 2D 60.0 50.0 - 65.0 % MV Decel Time 235 msec LVOT Diam 2.1 cm MV Decel [place] 2 MV E/A 1.5 TR Peak Luis Alfredo 2.9 m/sec TR Peak PG 33.0 mmHg RVSP 41.0 mmHg RA Pressure 8.0 Findings Left Ventricle: Normal left ventricular systolic function. Normal left ventricular cavity size. Mild-Moderate concentric left ventricular hypertrophy. Ejection fraction is visually estimated at 50 %. Abnormal Diastolic Function. Right Ventricle: Normal right ventricular size. Left Atrium: There is mild enlargement of left atrium. Right Atrium: The right atrium is normal in size. Mitral Valve: Normal appearance of the mitral valve. Moderate posterior mitral leaflet calcification. Mild mitral annular calcification. Trace mitral regurgitation. Aortic Valve: Normal appearance of the aortic valve. No significant aortic stenosis or insufficiency. Tricuspid Valve: Normal appearance of the tricuspid valve. Estimated peak PA systolic pressure 41 mmHg. There is mild to moderate tricuspid regurgitation by color. Pulmonic Valve: Pulmonic valve not well visualized. Pericardium: Trivial pericardial effusion. Moderate right and small left pleural effusion seen. Aorta: Normal aortic root. IVC: Normal IVC with respiratory collapse visually, however patient on ventilator. Conclusions 1.Normal left ventricular systolic function. Normal left ventricular cavity size. Mild-Moderate concentric left ventricular hypertrophy. Ejection fraction is visually estimated at 50 %. Abnormal Diastolic Function. 2.Normal right ventricular size. Mildly reduced systolic function. 3.Normal appearance of the mitral valve. Moderate posterior mitral leaflet calcification. Mild mitral annular calcification. Trace mitral regurgitation. 4.Normal appearance of the aortic valve. No significant aortic stenosis or insufficiency. 5.Normal appearance of the tricuspid valve. Estimated peak PA systolic pressure 41 mmHg. There is mild to moderate tricuspid regurgitation by color. 6.Moderate Pulmonary Hypertension. 7.Trivial pericardial effusion. Moderate right and small left pleural effusion seen. 8.Ejection fraction estimated on Vasopressors. Electronically Signed By: Teodoro Luna 14-Jan-2017 16:31:50 -0800 Patient Name: PERRY ZAVALETA Study Date: 14-Jan-2017 [id number]
--- NOTE | 2017-01-14 19:46 | EN ---
Date/Time of Note Date/Time of Note DATE: 01/14/17 TIME: 19:41 ER Progress Note I have been consulted to see the patient for cardiac arrest On exam: General: Unresponsive Head: Normocephalic, atraumatic Eyes: Fixed and dilated pupils ENT: Moist mucous membranes Neck: Supple, no lymphadenopathy Respiratory: No spontaneous respiratory activity Cardiovascular: No spontaneous cardiac activity Abdominal: Soft, non-protuberant, no pulsatile mass : Deferred MSK: No spontaneous motor activity Neurologic: No spontaneous neurologic activity Skin: No evidence of trauma Procedure(s): I directed ACLS per protocols. Please see nursing documentation Assessment and plan: This is a 61-year-old male with recent massive pulmonary embolism status post TPA on multiple pressors who has had 4 cardiac arrests in the past 24 hours. Upon arrival ACLS was initiated. I continue to direct ACLS. The patient had received multiple rounds of chest compressions and epinephrine as well as bicarbonate. The patient continued to be in PEA despite multiple rechecks. I attempted to have a prolonged conversation with the patient's and family members. I discussed that the likelihood of significant outcome is minimal and that further resuscitation efforts given maximized pressor support and multiple cardiac arrest in the past 12-24 hours portend futility. The family is not willing to have further conversation about this. They would like everything possibly done and continue full CODE STATUS at this point. The admitting team was notified. After multiple rounds return of spontaneous circulation was obtained. Family was updated. Further care per admitting team Diagnostic impression: Cardiac arrest, massive pulmonary embolism, shock CLAUDIA CERNA MD Jan 14, 2017 19:46
[2017-01-14] MEDS: PHENYLephrine 20MG IN 250 ML 250 ML IV SCH ×3 (19:59→21:58)
[2017-01-14] MEDS ORDERED: INSULIN GLARGINE [LANtus] 3 ML PEN SC SCH (21:00)
[2017-01-14] MEDS ORDERED: ATORVASTATIN 40 MG TAB PO SCH (21:00)
[2017-01-14] MEDS ORDERED: NA BICARBONATE 8.4% 50 ML SYG ONE (21:31)
[2017-01-14] MEDS ORDERED: PHENYLephrine 160 MG in DEXTROSE 5% 484 ML IV SCH (22:30)
[2017-01-15] VITALS: BP 87/45; PULSE 64; RESP 30
[2017-01-15] MEDS ORDERED: EPINEPHrine 0.1 MG/ML SYG ONE
[2017-01-15] MEDS ORDERED: LIDOCAINE 100 MG SYRINGE ONE
[2017-01-15] MEDS ORDERED: NA BICARBONATE 8.4% 50 ML SYG ONE
[2017-01-15] MEDS ORDERED: ATROPINE 1 MG/10 ML SYRINGE ONE
[2017-01-15] MEDS ORDERED: DOPamine-D5W 1.6 MG/ML 250 ML ONE
[2017-01-15 00:10] VITALS: BP 74/43; PULSE 46; RESP 30
[2017-01-15 00:20] VITALS: BP 58/38; PULSE 45; RESP 30
[2017-01-15 00:30] VITALS: PULSE 20; RESP 0
[2017-01-15 00:40] VITALS: PULSE 0; RESP 0
--- NOTE | 2017-01-15 01:56 | EN ---
Date/Time of Note Date/Time of Note DATE: 01/15/17 TIME: 01:56 Event Note Medicine Medicine Event Note Pronouncement note Patient seen and examined at the bedside s/p code blue. Patient non responsive to verbal stimuli, patient non responsive to vigorous sternal rub. No heart sounds on auscultation. Pupils fixed and and non reactive to light. telemetry monitoring shows asystole. Patient pronounced at 0037AM. Family was notified and they came to the bedside. Primary team aware. AUDIE WHITE Jan 15, 2017 01:56
--- NOTE | 2017-01-15 01:59 | DES ---
Date/Time of Note Date/Time of Note DATE: 01/15/17 TIME: 01:58 Discharge/ Summary Admission/Discharge Info Admit Date/Time Jan 13, 2017 at 18:54 Discharge Date/Time Final Diagnosis #1 cardiopulmonary arrest secondary to to massive pulmonary embolism #2 Massive pulmonary embolism status post tPA. #3 ventilatory dependent respiratory failure #4 multiorgan failure #5 suspected anoxic encephalopathy as a result of prolonged cardiopulmonary arrest. #6 severe lactic acidosis secondary to global hypoperfusion. #7 acute renal failure, likely prerenal versus acute tubular necrosis secondary to cardiopulmonary arrest. #8 status post coronary artery bypass graft. Preliminary Cause of #1 cardiopulmonary arrest due to massive pulmonary embolism #2 Massive pulmonary embolism status post tPA. #3 multiorgan failure #4 severe lactic acidosis, shock Hx of Present Illness CC: dyspnea The following history was obtained from the ED physician documentation as well as from the patient's family. When I was on my way to see the patient a rapid response was called and at the bedside the patient was in acute respiratory distress. Initially I will present the history of presentation based on ED physician documentation. The patient is a 61-year-old male with a past medical history of hypertension, hyperlipidemia, diabetes, cardiac arrhythmia on amiodarone, coronary artery disease status post four-vessel CABG on December 26, 2016, currently on aspirin and Xarelto, presenting with progressive worsening SOB over the last several days. He endorses paroxysmal nocturnal dyspnea, which he has been dealing with since he was discharged after his CABG. He states that he sleeps for only about an hour before waking up feeling very short of breath. He needs to sit on the side of the bed for 20 to 30 minutes before trying to go back to sleep. Over the last 3-4 days, however, his dyspnea has been getting worse. He endorses dyspnea on exertion now, and states that he can even brush his teeth without feeling short of breath. He could not walk down the hallway without losing his breath as well. He also started to feel very lightheaded today, and felt at one point that he was going to pass out. This was the primary reason why he called the paramedics. Upon gardener florist arrival, the patient was oxygenating in the low to mid 80s on room air. He was placed on high flow NRBFM and transferred here for further evaluation. His symptoms have improved on oxygen. Prior to my arrival in the room while reviewing the patient's chart decision was made to also order a CTA of the chest stat. CT of the chest stat showed extensive PEs in the bilateral left and right pulmonary arteries, please see CTA report for further details. An order for heparin was ordered and the patient's nurse was notified to start this immediately. Upon my way to see the patient, a rapid response was called as the patient the patient was in severe respiratory distress blood pressure was 188 systolic and he was approximately 76-80% pulse oximetry on nonrebreather max. Stat ABG was ordered prior to this and the results were pending. Patient was severely diaphoretic. BiPAP was ordered however at the moment as I saw the patient in respiratory distress and he was not able to sit still is complaining of not being able to breathe the decision was made that it would be best to intubate the patient to help protect patient's airway and for his respiratory distress. In the meantime his ABG results did arrive with a pH of 7.4 and O2 of 40. The ER physician had arrived at that point point and he also was agreeable to intubate the patient. The family was also at the bedside and they were agreeable to this as well. Prior to intubatio patient's family stated that his current respiratory distress started occurring after he had received his bolus of heparin and he started getting in respiratory distress a few minutes after. Though there were no signs of swelling of the lips or of the tongue and there was no wheezing or stridor and no rash or any swelling noted the decision was made that we could treat initially as an anaphylactic reaction. Epinephrine, Benadryl, Pepcid were given. As there was no improvement was admitted decision to rapidly proceed to intubation. Patient was intubated and his oxygenation subsequently improved. Within a short period after the patient went into bradycardia and he lost his pulse. ACLS protocol was initiated. Multiple medications were given during this. Along with chest compressions. Please see ACLS report for duration and medications developed given during the CODE BLUE. Pulses were established during the code multiple times and that he arrested again. During the CODE BLUE decision was also made to initiate TPA for the extensive PE. TPA was administered. Once pulses were established patient was stable he was transferred to the ICU. Patient was initiated on a bicarb drip as well as Levophed for pressure support as well as dobutamine. Hospital Course This is a very unfortunate 61-year-old gentleman who presented to the ED for hypoxia. Patient was found to have extensive bilateral PEs on CT of the chest. Patient was initiated on heparin drip. After the heparin patient went into respiratory distress and rapidly decompensated requiring intubation. After being intubated patient went into cardiac arrest and underwent an extensive approximately 45 minute round of ACLS. Patient also received TPA. At the current time patient is in the ICU. His pre-cardiac arrest pH was 7.4 with an O2 of 45 and a CO2 of 29. Post cardiac arrest patient's pH was 6.85 with a CO2 of 63 and a PO2 of 102. then adjustments were made vent adjustments were made , patient was initiated on bicarb drip. Patient was given levo fed for pressure support and also dobutamine was added for inotropic effect. Will obtain stat lactic acid level and an ABG in 1 hour. Will continue very close monitoring. We will also will need to get a CT of the head without contrast however we will need to wait until patient is clinically stable. Please see the HPI for more extensive details regarding this patient's full hospital course as well as please see the ED physician documentation as well from the event of the CODE BLUE in the admission for full details. We will consult pulmonology, nephrology, cardiology, neurology and any other specialist as indicated in the a.m. we will also order a catracho panel. Of note patient's pupils after the cardiac arrest there were dilated bilaterally. Family was also present at the bedside throughout the code and in the ICU. I had an extensive discussion with the patient along with the ED physician regarding the patient's clinical condition. At the current time the etiology to suspected is that the patient PE resulted in the cardiac arrest. I am unsure at this time if this was directly a cause of the heparin that we gave to the patient are not. I did explain to the family that the heparin is the course of treatment in this case. Patient also received TPA. As the patient acutely decompensated he was not a candidate for any sort of transfer to any higher level of care. At the current time we will continue management for the patient in the ICU. Will continue to update the family on patient's clinical condition. The family did understand the risks and benefits of the TPA and the concern for possible hemorrhage from this. Will obtain CAT scan of the head at the first operative moment based on patient's clinical status being more stable. I did however tell the family that there is concern for for his brain function which may have suffered from this very extensive cardiac arrest. The patient's pupils at the current time are dilated bilaterally but we will continue to monitor this. Through the ensuing hospital course of the patient underwent evaluation from pulmonology as well as nephrology and cardiology. Ventilator management/ respiratory support was continued and pressor support was escalated as patient was continually decompensating. Bicarb drip was continued as well. Patient went through multiple cardiac arrests over the course of his hospital stay. His neurological exam appeared severely diminished as he was obtunded and not requiring any sedation and his bilateral pupils for the majority of the hospital course, after his initial cardiac arrest, remained fixed and dilated. His clinical condition continued to deteriorate and family was made aware by the consulting physicians as well as the primary team regarding the patient's rapidly declining and poor clinical status. At this point in time the family still requested full measures be undertaken. Again patient continued to go through multiple cardiac arrests during his hospital stay,please see the ACLS/ CODE BLUE charting for more information. At approximately 0030 a.m. patient went into cardiac arrest again and a CODE BLUE was called. Family was notified via phone of the code. Multiple rounds of CPR were undertaken however they proved to be futile resulting in the CODE BLUE ending and the patient's passing. The patient was pronounced at approximately 0037 AM on 01/15/2017. The patient's family was notified of the patient's passing and they arrived at the hospital where I spoke to the patient's family at the bedside regarding his clinical condition as well as the extensive measures that were taken to help him however which ultimately proved to be futile. The family was very appreciative of the efforts that were put into the care of the patient. Pending Labs/Cultures Laboratory Tests Test 01/14/17 02:00 01/14/17 02:13 01/14/17 04:44 01/14/17 04:45 Blood Gas Specimen Source Blood arterial Arterial Blood Date Drawn 01/14/2017 2:20:00 AM Arterial Blood pH (Temp corrected) 7.248 (7.350-7.450) Arterial Blood pCO2 (Temp correct) 37.9mmhg (35-45) Arterial Blood pO2 (Temp corrected) 195.9mmHG (80-100.0) Arterial Blood HCO3 16.2mmol/L (22.0-26.0) Arterial Blood Base Excess -10.3mmol/L (-3.0-3) Arterial Blood Oxygen Saturation 98.4mmHG (95.0-98.0) Phil Test ACCEPTAB Arterial Blood Gas Puncture Site Right Radial Arterial Blood Carboxyhemoglobin 0.2% (0.0-3.0) Arterial Blood Methemoglobin 0.6% (0.0-1.5) Blood Gas A-a O2 Differential 479.2mmHg (7.0-24.0) Oxyhemoglobin Percent 97.6% (93.0-99.0) Total Hemoglobin 10.0g/dl (12.0-18.0) Blood Gas Temperature 37.0C Blood Gas Respiration Rate 24.0 Blood Gas Actual Respiration Rate 24 Blood Gas Modality VENT - AC FiO2 100.0% Blood Gas Tidal Volume 500.0mL Blood Gas Low PEEP Setting 5.0cmH2O Blood Gas Inspiratory Pressure 18.0 Blood Gas Critical Value Read Back Kelsey COLLINS R.N Blood Gas Notified Whom MM Blood Gas Notified Time 01/14/2017 2:25:00 AM White Blood Count 14.810^3/ul (4.8-10.8) 21.410^3/ul (4.8-10.8) Red Blood Count 2.8110^6/ul (4.70-6.10) 2.6710^6/ul (4.70-6.10) Hemoglobin 8.6g/dl (14.0-18.0) 8.2g/dl (14.0-18.0) Hematocrit 27.7% (42.0-52.0) 25.4% (42.0-52.0) Mean Corpuscular Volume 98.6fl (82.0-101.0) 95.1fl (82.0-101.0) Mean Corpuscular Hemoglobin 30.6pg (29.0-33.0) 30.7pg (29.0-33.0) Mean Corpuscular Hemoglobin Concent 31.0g/dl (32.0-37.0) 32.3g/dl (32.0-37.0) Red Cell Distribution Width 15.3% (11.5-14.5) 15.4% (11.5-14.5) Platelet Count 8810^3/UL (140-415) 95354^3/UL (140-415) Mean Platelet Volume 11.0fl (7.4-10.4) 10.6fl (7.4-10.4) Neutrophils % 53.6% (39.0-77.0) 78.1% (39.0-77.0) Lymphocytes % 33.6% (15.0-51.0) 13.6% (15.0-51.0) Monocytes % 4.5% (0.0-11.0) 6.3% (0.0-11.0) Eosinophils % 2.0% (0.0-7.0) 0.2% (0.0-7.0) Basophils % 0.7% (0.0-2.0) 0.4% (0.0-2.0) Nucleated Red Blood Cells % 0.8/100WBC (0.0-0.0) 0.9/100WBC (0.0-0.0) Neutrophils # 8.010^3/ul (1.6-7.5) 16.710^3/ul (1.6-7.5) Lymphocytes # 5.010^3/ul (0.8-2.9) 2.910^3/ul (0.8-2.9) Monocytes # 0.710^3/ul (0.3-0.9) 1.410^3/ul (0.3-0.9) Eosinophils # 0.310^3/ul (0.0-0.5) 0.010^3/ul (0.0-0.5) Basophils # 0.110^3/ul (0.0-0.1) 0.110^3/ul (0.0-0.1) Nucleated Red Blood Cells # 0.110^3/ul (0.0-0.0) 0.210^3/ul (0.0-0.0) Activated Partial Thromboplast Time > 180.0Sec (25.0-35.0) Sodium Level 142mmol/L (135-144) 145mmol/L (135-144) Potassium Level 4.2mmol/L (3.5-5.1) 4.9mmol/L (3.5-5.1) Chloride Level 102mmol/L (97-110) 97mmol/L (97-110) Carbon Dioxide Level 14mmol/L (21-31) 18mmol/L (21-31) Anion Gap 30 (8-16) 35 (8-16) Blood Urea Nitrogen 16mg/dl (7-20) 20mg/dl (7-20) Creatinine 1.41mg/dl (0.61-1.24) 1.77mg/dl (0.61-1.24) Glucose Level 209mg/dl (70-220) 277mg/dl (70-220) Calcium Level 8.0mg/dl (8.4-10.2) 7.6mg/dl (8.4-10.2) Phosphorus Level 13.4mg/dl (2.5-4.9) Magnesium Level 2.2mg/dl (1.7-2.5) Creatine Kinase 347IU/L (23-200) 3170IU/L (23-200) Creatine Kinase Index 2.1 1.5 Creatinine Kinase MB (Mass) 7.25ng/ml (0.0-2.4) 46.70ng/ml (0.0-2.4) Troponin I 0.890ng/ml (0.00-0.12) 16.100ng/ml (0.00-0.12) Lactic Acid Level 19.1mmol/L (0.5-2.0) Total Bilirubin 0.6mg/dl (0.2-1.3) Direct Bilirubin 0.00mg/dl (0.00-0.20) Indirect Bilirubin 0.6mg/dl (0-1.1) Aspartate Amino Transf (AST/SGOT) 1457IU/L (15-46) Alanine Aminotransferase (ALT/SGPT) 601IU/L (13-69) Alkaline Phosphatase 101IU/L (42-121) Total Protein 5.2g/dl (6.1-8.1) Albumin 3.0g/dl (3.3-4.9) Globulin 2.20g/dl (1.3-3.2) Albumin/Globulin Ratio 1.36 Test 11/5/17 05:18 01/14/17 07:07 01/14/17 08:03 01/14/17 08:10 Bedside Glucose 300mg/dL (70-220) 273mg/dL (70-220) Sodium Level 144mmol/L (135-144) Potassium Level 5.0mmol/L (3.5-5.1) Chloride Level 99mmol/L (97-110) Carbon Dioxide Level 14mmol/L (21-31) Anion Gap 36 (8-16) Blood Urea Nitrogen 20mg/dl (7-20) Creatinine 2.04mg/dl (0.61-1.24) Glucose Level 245mg/dl (70-220) Lactic Acid Level 23.9mmol/L (0.5-2.0) Calcium Level 7.0mg/dl (8.4-10.2) Total Bilirubin 0.7mg/dl (0.2-1.3) Direct Bilirubin 0.00mg/dl (0.00-0.20) Indirect Bilirubin 0.7mg/dl (0-1.1) Aspartate Amino Transf (AST/SGOT) 1447IU/L (15-46) Alanine Aminotransferase (ALT/SGPT) 545IU/L (13-69) Alkaline Phosphatase 82IU/L (42-121) B-Type Natriuretic Peptide 3460PG/ML (0-125) Total Protein 4.5g/dl (6.1-8.1) Albumin 2.5g/dl (3.3-4.9) Globulin 2.00g/dl (1.3-3.2) Albumin/Globulin Ratio 1.25 Digoxin Level 0.5ng/ml (1.0-2.0) Blood Gas Specimen Source Blood arterial Arterial Blood Date Drawn 01/14/2017 8:10:26 AM Arterial Blood pH (Temp corrected) 7.127 (7.350-7.450) Arterial Blood pCO2 (Temp correct) 44.5mmhg (35-45) Arterial Blood pO2 (Temp corrected) 70.5mmHG (80-100.0) Arterial Blood HCO3 14.4mmol/L (22.0-26.0) Arterial Blood Base Excess -13.7mmol/L (-3.0-3) Arterial Blood Oxygen Saturation 83.2mmHG (95.0-98.0) Phil Test ACCEPTAB Arterial Blood Gas Puncture Site Right Radial Arterial Blood Carboxyhemoglobin 0.3% (0.0-3.0) Arterial Blood Methemoglobin 0.7% (0.0-1.5) Blood Gas A-a O2 Differential 380.8mmHg (7.0-24.0) Oxyhemoglobin Percent 82.4% (93.0-99.0) Total Hemoglobin 6.7g/dl (12.0-18.0) Blood Gas Temperature 37.0C Blood Gas Respiration Rate 24.0 Blood Gas Actual Respiration Rate 24 Blood Gas Modality VENT - AC FiO2 70.0% Blood Gas Tidal Volume 500.0mL Blood Gas Low PEEP Setting 5.0cmH2O Blood Gas Critical Value Read Back PAXTON DUNN R.N. Blood Gas Notified Whom RT Blood Gas Notified Time 01/14/2017 8:19:04 AM Test 01/14/17 09:36 01/14/17 11:00 01/14/17 12:00 01/14/17 12:08 Bedside Glucose 231mg/dL (70-220) 219mg/dL (70-220) 208mg/dL (70-220) Blood Gas Specimen Source Blood arterial Arterial Blood Date Drawn 01/14/2017 12:10:27 PM Arterial Blood pH (Temp corrected) 7.100 (7.350-7.450) Arterial Blood pCO2 (Temp correct) 33.9mmhg (35-45) Arterial Blood pO2 (Temp corrected) 156.9mmHG (80-100.0) Arterial Blood HCO3 10.3mmol/L (22.0-26.0) Arterial Blood Base Excess -17.7mmol/L (-3.0-3) Arterial Blood Oxygen Saturation 97.4mmHG (95.0-98.0) Phil Test ACCEPTAB Arterial Blood Gas Puncture Site Right Radial Arterial Blood Carboxyhemoglobin 0.3% (0.0-3.0) Arterial Blood Methemoglobin 1.0% (0.0-1.5) Blood Gas A-a O2 Differential 522.2mmHg (7.0-24.0) Oxyhemoglobin Percent 96.1% (93.0-99.0) Total Hemoglobin 5.5g/dl (12.0-18.0) Blood Gas Temperature 37.0C Blood Gas Respiration Rate 24.0 Blood Gas Modality VENT - AC FiO2 100.0% Blood Gas Tidal Volume 500.0mL Blood Gas Low PEEP Setting 5.0cmH2O Blood Gas Critical Value Read Back JEFFREY DAVE Blood Gas Notified Whom [place] Blood Gas Notified Time 01/14/2017 12:24:46 PM Test 01/14/17 12:31 01/14/17 13:50 01/14/17 13:54 01/14/17 15:00 Bedside Glucose 233mg/dL (70-220) 195mg/dL (70-220) 183mg/dL (70-220) Sodium Level 154mmol/L (135-144) Potassium Level 4.1mmol/L (3.5-5.1) Chloride Level 98mmol/L (97-110) Carbon Dioxide Level 12mmol/L (21-31) Anion Gap 48 (8-16) Blood Urea Nitrogen 21mg/dl (7-20) Creatinine 2.69mg/dl (0.61-1.24) Glucose Level 159mg/dl (70-220) Lactic Acid Level > 24.0mmol/L (0.5-2.0) Calcium Level 6.3mg/dl (8.4-10.2) Total Bilirubin 0.8mg/dl (0.2-1.3) Direct Bilirubin 0.30mg/dl (0.00-0.20) Indirect Bilirubin 0.5mg/dl (0-1.1) Aspartate Amino Transf (AST/SGOT) > 7500IU/L (15-46) Alanine Aminotransferase (ALT/SGPT) 3845IU/L (13-69) Alkaline Phosphatase 73IU/L (42-121) Troponin I 30.100ng/ml (0.00-0.12) Total Protein 3.9g/dl (6.1-8.1) Albumin 2.1g/dl (3.3-4.9) Globulin 1.80g/dl (1.3-3.2) Albumin/Globulin Ratio 1.16 Test 01/14/17 15:34 01/14/17 15:35 01/14/17 16:30 01/14/17 16:55 Prothrombin Time 72.8Sec (12.2-14.2) Prothrombin Time Ratio 5.7 INR International Normalized Ratio 8.59 Activated Partial Thromboplast Time 68.8Sec (25.0-35.0) Sodium Level 156mmol/L (135-144) Potassium Level 4.0mmol/L (3.5-5.1) Chloride Level 100mmol/L (97-110) Carbon Dioxide Level 12mmol/L (21-31) Anion Gap 48 (8-16) Blood Urea Nitrogen 22mg/dl (7-20) Creatinine 2.88mg/dl (0.61-1.24) Glucose Level 146mg/dl (70-220) Calcium Level 6.5mg/dl (8.4-10.2) Total Bilirubin 0.8mg/dl (0.2-1.3) Direct Bilirubin 0.30mg/dl (0.00-0.20) Indirect Bilirubin 0.5mg/dl (0-1.1) Aspartate Amino Transf (AST/SGOT) > 7500IU/L (15-46) Alanine Aminotransferase (ALT/SGPT) > 54280YH/L (13-69) Alkaline Phosphatase 84IU/L (42-121) Total Protein 4.5g/dl (6.1-8.1) Albumin 2.3g/dl (3.3-4.9) Globulin 2.20g/dl (1.3-3.2) Albumin/Globulin Ratio 1.04 White Blood Count 28.610^3/ul (4.8-10.8) Red Blood Count 1.7310^6/ul (4.70-6.10) Hemoglobin 5.4g/dl (14.0-18.0) Hematocrit 17.9% (42.0-52.0) Mean Corpuscular Volume 103.5fl (82.0-101.0) Mean Corpuscular Hemoglobin 31.2pg (29.0-33.0) Mean Corpuscular Hemoglobin Concent 30.2g/dl (32.0-37.0) Red Cell Distribution Width 16.2% (11.5-14.5) Platelet Count 17101^3/UL (140-415) Mean Platelet Volume 11.8fl (7.4-10.4) Neutrophils % % (39.0-77.0) Segmented Neutrophils % (Manual) 70% (39-77) Band Neutrophils % (Manual) 6% (0-4) Lymphocytes % % (15.0-51.0) Lymphocytes % (Manual) 21% (15-51) Monocytes % % (0.0-11.0) Monocytes % (Manual) 3% (0-11) Eosinophils % % (0.0-7.0) Basophils % % (0.0-2.0) Nucleated Red Blood Cells % 4% (0-0) Neutrophils # 10^3/ul (1.6-7.5) Neutrophils # (Manual) 20.510^3/ul (1.7-7.5) Band Neutrophils # 1.710^3/ul (0.0-0.6) Absolute Lymphocytes (Manual) 6.010^3/ul (0.8-2.9) Lymphocytes # 10^3/ul (0.8-2.9) Monocytes # 10^3/ul (0.3-0.9) Absolute Monocytes (Manual) 0.810^3/ul (0.3-0.9) Eosinophils # 10^3/ul (0.0-0.5) Basophils # 10^3/ul (0.0-0.1) Nucleated Red Blood Cells # 10^3/ul (0.0-0.0) Platelet Estimate NORMAL Giant Platelets 1% (0-0) Urine Color RL (YELLOW) Urine Clarity CLOUDY (CLEAR) Urine pH 5.0 (5.0-9.0) Urine Specific [place] 1.032 (1.003-1.030) Urine Ketones TRACEmg/dL (NEGATIVE) Urine Nitrite NEGATIVEmg/dL (NEGATIVE) Urine Bilirubin NEGATIVEmg/dL (NEGATIVE) Urine Urobilinogen NEGATIVEmg/dL (NEGATIVE) Urine Leukocyte Esterase NEGATIVELeu/ul (NEGATIVE) Urine Microscopic RBC 66/HPF (0-5) Urine Microscopic WBC 4/HPF (0-5) Urine Bacteria FEW/HPF (NONE SEEN) Urine Mucus FEW/HPF (NONE SEEN) Urine Hemoglobin 2+mg/dL (NEGATIVE) Urine Glucose 1+mg/dL (NEGATIVE) Urine Total Protein 2+mg/dl (NEGATIVE) Bedside Glucose 161mg/dL (70-220) Test 01/14/17 17:50 01/14/17 17:57 01/14/17 18:12 01/14/17 19:19 Troponin I 36.300ng/ml (0.00-0.12) Lactic Acid Level > 24.0mmol/L (0.5-2.0) Bedside Glucose 162mg/dL (70-220) 191mg/dL (70-220) Test 01/14/17 19:54 01/14/17 20:05 01/14/17 22:02 01/14/17 22:42 Bedside Glucose 176mg/dL (70-220) 223mg/dL (70-220) White Blood Count 19.610^3/ul (4.8-10.8) Red Blood Count 2.1210^6/ul (4.70-6.10) Hemoglobin 6.7g/dl (14.0-18.0) Hematocrit 22.0% (42.0-52.0) Mean Corpuscular Volume 103.8fl (82.0-101.0) Mean Corpuscular Hemoglobin 31.6pg (29.0-33.0) Mean Corpuscular Hemoglobin Concent 30.5g/dl (32.0-37.0) Red Cell Distribution Width 15.0% (11.5-14.5) Platelet Count 11327^3/UL (140-415) Mean Platelet Volume 12.0fl (7.4-10.4) Neutrophils % 75.1% (39.0-77.0) Lymphocytes % 16.1% (15.0-51.0) Monocytes % 5.6% (0.0-11.0) Eosinophils % 0.1% (0.0-7.0) Basophils % 0.3% (0.0-2.0) Nucleated Red Blood Cells % 3.6/100WBC (0.0-0.0) Neutrophils # 14.710^3/ul (1.6-7.5) Lymphocytes # 3.210^3/ul (0.8-2.9) Monocytes # 1.110^3/ul (0.3-0.9) Eosinophils # 0.010^3/ul (0.0-0.5) Basophils # 0.110^3/ul (0.0-0.1) Nucleated Red Blood Cells # 0.710^3/ul (0.0-0.0) Prothrombin Time > 100.0Sec (12.2-14.2) Prothrombin Time Ratio 7.8 INR International Normalized Ratio > 6.00 Activated Partial Thromboplast Time 92.0Sec (25.0-35.0) Sodium Level 158mmol/L (135-144) Potassium Level 4.7mmol/L (3.5-5.1) Chloride Level 96mmol/L (97-110) Carbon Dioxide Level 14mmol/L (21-31) Anion Gap 53 (8-16) Blood Urea Nitrogen 22mg/dl (7-20) Creatinine 2.99mg/dl (0.61-1.24) Glucose Level 170mg/dl (70-220) Lactic Acid Level > 24.0mmol/L (0.5-2.0) Calcium Level 6.0mg/dl (8.4-10.2) Magnesium Level 2.1mg/dl (1.7-2.5) Total Bilirubin 0.6mg/dl (0.2-1.3) Direct Bilirubin 0.20mg/dl (0.00-0.20) Indirect Bilirubin 0.4mg/dl (0-1.1) Aspartate Amino Transf (AST/SGOT) > 7500IU/L (15-46) Alanine Aminotransferase (ALT/SGPT) > 48231CO/L (13-69) Alkaline Phosphatase 76IU/L (42-121) Total Protein 3.4g/dl (6.1-8.1) Albumin 1.7g/dl (3.3-4.9) Globulin 1.70g/dl (1.3-3.2) Albumin/Globulin Ratio 1.00 Blood Gas Specimen Source Blood arterial Arterial Blood Date Drawn 01/14/2017 11:10:21 PM Arterial Blood pH (Temp corrected) 7.105 (7.350-7.450) Arterial Blood pCO2 (Temp correct) 37.1mmhg (35-45) Arterial Blood pO2 (Temp corrected) 41.3mmHG (80-100.0) Arterial Blood HCO3 11.4mmol/L (22.0-26.0) Arterial Blood Base Excess -16.9mmol/L (-3.0-3) Arterial Blood Oxygen Saturation 66.8mmHG (95.0-98.0) Phil Test ACCEPTAB Arterial Blood Gas Puncture Site Right Radial Arterial Blood Carboxyhemoglobin 0.3% (0.0-3.0) Arterial Blood Methemoglobin 0.5% (0.0-1.5) Blood Gas A-a O2 Differential 634.6mmHg (7.0-24.0) Oxyhemoglobin Percent 66.3% (93.0-99.0) Total Hemoglobin 8.1g/dl (12.0-18.0) Blood Gas Temperature 37.0C Blood Gas Respiration Rate 30.0 Blood Gas Actual Respiration Rate 30 Blood Gas Modality VENT - AC FiO2 100.0% Blood Gas Tidal Volume 500.0mL Blood Gas Low PEEP Setting 5.0cmH2O Blood Gas Critical Value Read Back kelsey nicholson rn Blood Gas Notified Whom d ramirez presidential support specialist Blood Gas Notified Time 01/14/2017 11:20:21 PM Test 01/14/17 22:59 01/14/17 23:50 Bedside Glucose 219mg/dL (70-220) 239mg/dL (70-220) AUDIE WHITE Jan 15, 2017 01:59
[2017-01-15] MEDS ORDERED: CEFEPIME 1GM/50 ML (PMX) 50 ML IVPB SCH (09:00)
--- NOTE | 2017-01-16 14:54 | RADRPT ---
Vent Rate: 90 bpm RR Interval: 0 msec TN Interval: 138 msec QRS Duration: 134 msec QT Interval: 462 msec QTC Interval: 565 msec P-R-T [place]: 45 - -83 - 45 degrees Normal sinus rhythm Right bundle branch block Left anterior fascicular block Bifascicular block Abnormal ECG Electronically Signed By: Eliud Mendiola [id number]
--- NOTE | 2017-01-16 14:54 | RADRPT ---
Vent Rate: 90 bpm RR Interval: 0 msec [place] Interval: 138 msec QRS Duration: 134 msec QT Interval: 462 msec QTC Interval: 565 msec P-R-T [place]: 45 - -83 - 45 degrees Normal sinus rhythm Right bundle branch block Left anterior fascicular block Bifascicular block Abnormal ECG Electronically Signed By: Eliud Mendiola [id number]
== END 2017-01-15 04:59 | disposition expired | DRG 208 ==
LOC: E/R 16:59 → TEL 18:54 → ICU 01-14 01:01
PROVIDERS: ADMIT Family Medicine; ATTEND Family Medicine
PROC: 3E033GC Introduction of Other Therapeutic Substance into Peripheral Vein, Percutaneous Approach (ICD-10-PCS; 2017-01-13)
PROC: 0BH17EZ Insertion of Endotracheal Airway into Trachea, Via Natural or Artificial Opening (ICD-10-PCS; principal; 2017-01-14)
PROC: 5A1935Z Respiratory Ventilation, Less than 24 Consecutive Hours (ICD-10-PCS; 2017-01-14)
PROC: 5A12012 Performance of Cardiac Output, Single, Manual (ICD-10-PCS; 2017-01-14)
PROC: 06HY33Z Insertion of Infusion Device into Lower Vein, Percutaneous Approach (ICD-10-PCS; 2017-01-14)
PROC: 30233N1 Transfusion of Nonautologous Red Blood Cells into Peripheral Vein, Percutaneous Approach (ICD-10-PCS; 2017-01-14)
DX: I26.99 Other pulmonary embolism without acute cor pulmonale (principal); R57.0 Cardiogenic shock; G93.1 Anoxic brain damage, not elsewhere classified; Z99.11 Dependence on respirator [ventilator] status; J18.9 Pneumonia, unspecified organism; N17.9 Acute kidney failure, unspecified; J90 Pleural effusion, not elsewhere classified; I24.9 Acute ischemic heart disease, unspecified; E11.9 Type 2 diabetes mellitus without complications; D64.9 Anemia, unspecified; E78.5 Hyperlipidemia, unspecified; Z95.1 Presence of aortocoronary bypass graft; F17.210 Nicotine dependence, cigarettes, uncomplicated; I25.10 Atherosclerotic heart disease of native coronary artery without angina pectoris; Z79.4 Long term (current) use of insulin; I10 Essential (primary) hypertension; Z79.82 Long term (current) use of aspirin
CPT/HCPCS: 36415; 36430; 36600; 71010; 71275; 76775; 80048; 80053; 80162; 81001; 82550; 82553; 82803; 82962; 83605; 83735; 83880; 84100; 84484; 85025; 85610; 85730; 86022; 86850; 86900; 86901; 86920; 87040; 87081; 87086; 92950; 93005; 93306; 93970; 94002; 94003; 94770; C1751; J0171; J0461; J0692; J1200; J1250; J1265; J1644; J1815; J2001; J2060; J2370; J2930; J2997; J3370; J7030; J7040; J7050; J7060; J7070; P9016; P9059; Q9967